=== PATIENT | female | born 1940 | race Caucasian/White ===

== ENCOUNTER 2017-03-09 12:27 | Inpatient (IN) ==
[2017-03-09] MEDS ORDERED: 0.9 % Sodium Chloride 1,000 ML IVC ONE (12:31)
--- NOTE | 2017-03-09 12:37 | Emergency Department Note ---
Disposition Clinical Impression: Orthostatic hypotension, Acute kidney injury Head injury Qualifiers: Encounter type: initial encounter Qualified Code(s): S09.90XA - Unspecified injury of head, initial encounter Disposition: Admitted As Inpatient Condition: Fair Referrals: Chris Lazaro MD [Primary Care Provider] - Forms: ED Satisfaction Letter Time of Disposition: 15:21 Fall HPI - General Chief Complaint: ED Fall Stated Complaint: fall Time Seen by Provider: 03/09/17 12:28 Source: patient, EMS Mode of arrival: EMS Limitations: no limitations Nursing Notes Reviewed: Yes Vital Signs Reviewed: Yes - History of Present Illness HPI Narrative: 76-year-old was at the assisted living and apparently fell striking the back of her head complaining of severe neck pain and shoulder pain. Found to have a low blood pressures given 250 mL bolus with improvement. On arrival to the emergency department she does interact appropriately and answers questions however her blood pressure is low with a systolic of 70. Fluid bolus was started on arrival. Pt Subjective Complaint: fall Onset (ago): Just [employer] Fall From: out of bed Fall Witnessed: no Place Fall Occurred: [facility] Loss of Consciousness: unsure Prolonged Down Time?: no Symptoms Prior to Fall: none Context: tripped/slipped Location of injury: head, chest Location of injury - extremities: Bilateral: shoulder Severity: moderate, severe Quality: aching Associated symptoms (after fall): Reports: headache, neck pain - Related Data Home Medications Medication Instructions Recorded Confirmed Acetaminophen [Tylenol Arthritis] 650 mg PO Q8H PRN 03/09/17 03/09/17 Amitriptyline [Elavil] 25 mg PO HS 03/09/17 03/09/17 Celecoxib [Celebrex] 200 mg PO DAILY 03/09/17 03/09/17 Cholecalciferol (Vitamin D3) 5,000 unit PO DAILY 03/09/17 03/09/17 [Vitamin D3] Duloxetine HCl [Cymbalta] 60 mg PO HS 03/09/17 03/09/17 Gabapentin [Neurontin] 100 mg PO TID 03/09/17 03/09/17 Lisinopril [Zestril] 20 mg PO DAILY 03/09/17 03/09/17 Loperamide HCl [Anti-Diarrheal] 2 mg PO Q4H PRN 03/09/17 03/09/17 Mag Hydrox/Al Hydrox/Simeth 30 ml PO Q4H PRN 03/09/17 03/09/17 [Antacid Suspension] Metoprolol Succinate 25 mg PO DAILY 03/09/17 03/09/17 Mirtazapine 7.5 mg PO HS 03/09/17 03/09/17 Omeprazole [PriLOSEC] 20 mg PO DAILY 03/09/17 03/09/17 Venlafaxine HCl [Venlafaxine HCl 37.5 mg PO BID 03/09/17 03/09/17 ER] Vitamin B Complex [B Complex] 1 each PO DAILY 03/09/17 03/09/17 amLODIPine [Norvasc] 5 mg PO DAILY 03/09/17 03/09/17 traZODone [TraZODone] 75 mg PO HS 03/09/17 03/09/17 Allergies Allergy/AdvReac Type Severity Reaction Status Date / Time diltiazem [From Cardizem] Allergy Agitated Verified 03/09/17 12:28 morphine AdvReac Agitated Verified 04/18/15 11:05 pregabalin [From Lyrica] AdvReac Agitated Verified 04/18/15 11:05 All systems ED: reviewed and negative except as stated. Constitutional: Denies: fever, chills, weakness, weight change Eyes: Denies: eye pain, eye discharge, vision change ENT ED: Denies: ear pain, throat pain, dental pain, hearing loss, epistaxis, congestion, dysphagia Cardiovascular: Denies: chest pain, palpitations, dyspnea on exertion, edema, syncope Respiratory: Denies: cough, dyspnea, wheezes, hemoptysis, stridor Gastrointestinal: Denies: abdominal pain, nausea, vomiting, diarrhea, constipation, hematemesis, melena, hematochezia Genitourinary: Denies: dysuria, frequency, hematuria, discharge Musculoskeletal: Reports: neck pain, arthralgia. Denies: back pain, myalgia Integumentary: Denies: rash, abrasion, lesions Neurological: Reports: headache. Denies: weakness, numbness, paresthesias, confusion, abnormal gait, vertigo Psychiatric: Denies: anxiety, depression, suicidal thoughts, homicidal thoughts , auditory hallucinations, visual hallucinations Endocrine: Denies: fatigue Hematological/Lymphatic: Denies: easy bleeding, easy bruising Allergic/Immunologic: Denies: facial swelling, urticaria Fall PMH - Past Medical History Medical history: Reports: fibromyalgia, hypertension Reports: Recurrent Falls (Pt has had frequent falls for the last few years. ) Surgical history: Reports: hip replacement, other (shoulder replacement left) Psychiatric history: Reports: anxiety - Social History Smoking Status: Never smoker Alcohol use: Reports: none Drug use: Reports: none Physical Exam - General Limitations: no limitations General appearance: alert, in no apparent distress - Head Head exam: other (Steric tenderness) - Eye Eye exam: Present: normal appearance, PERRL, EOMI - ENT ENT exam: normal exam, normal oropharynx, mucous membranes moist - Neck Neck exam: Present: normal inspection, full ROM, trachea midline - Chest Chest inspection: Present: normal inspection, symmetric chest wall rise - Respiratory Respiratory exam: Present: normal lung sounds bilaterally - Cardiovascular Cardiovascular exam: Present: regular rate, normal rhythm, normal heart sounds - Abdominal Exam Abdominal exam: Present: soft, Non-Tender. Absent: tenderness, distention, guarding, rebound, rigidity - Expanded Upper Extremity Exam Shoulder exam: Present: tenderness (Bilaterally). Absent: dislocation - Expanded Lower Extremity Exam Neurovascular/Tendon exam: Absent: motor deficit, sensory deficit, tendon deficit Gait: not tested/not observed - Back Exam Back exam: Present: normal inspection, full ROM. Absent: tenderness - Neurological Exam Neurological exam: Present: alert. Absent: motor sensory deficit - Psychiatric Psychiatric exam: Present: normal affect, normal mood - Skin Skin exam: Present: warm, dry, intact, normal color Course - Reevaluation(s) Reevaluation #1: 76-year-old who has been falling more frequently recently fell today injuring her head and neck. A CT of the head and neck were negative. Patient was hypotensive of did receive a bolus of fluid had some improvement in blood pressure was noted to have significant kidney injury. Appears that the patient is significantly dehydrated. We'll hydrate. Current blood pressure is 100/49. Time: 15:19 - Consultations Consultation #1: Discussed with Dr. Marquez, admit. Time: 15:20 Vital Signs Temperature 98 F 03/09/17 12:37 Pulse Rate 110 03/09/17 12:37 Respiratory Rate 18 03/09/17 12:37 Blood Pressure 84/52 03/09/17 12:37 O2 Sat by Pulse Oximetry 98 03/09/17 12:37 Temperature 98 F 03/09/17 12:37 Pulse Rate 97 03/09/17 15:12 Respiratory Rate 18 03/09/17 15:12 Blood Pressure 104/42 03/09/17 15:12 O2 Sat by Pulse Oximetry 99 03/09/17 15:12 Oxygen Delivery Oxygen Delivery Room Air Fall - Lab Data Lab results reviewed: Yes I reviewed the patient's lab results. Result diagrams: 03/09/17 13:12 03/09/17 13:12 Lab Results 03/09/17 03/09/17 03/09/17 Range/Units 13:12 13:12 13:12 WBC 11.2 H (4.3-11.1) K/mcL RBC 4.87 (3.82-4.97) M/mcL Hgb 14.0 (11.5-15.4) g/dL Hct 43.5 (35.3-44.9) % MCV 89.3 (83.0-100.0) fL MCH 28.7 (28.0-33.3) pg MCHC 32.2 (31.6-35.5) g/dL RDW 14.5 (11.5-14.5) % Plt Count 174 (140-400) K/mcL MPV 9.8 (9.4-12.4) fL Immature Gran % 0.2 (0-4) % Seg Neutrophils % 82.0 % Lymphocytes % 11.5 % Monocytes % 5.7 % Eosinophils % 0.4 % Basophils % 0.2 % Neutrophils # 9.2 H (1.6-8.9) K/mcL Lymphocytes # 1.3 (0.6-4.6) K/mcL Monocytes # 0.6 (0.0-1.3) K/mcL Eosinophils # 0.0 (0.0-0.6) K/mcL Basophils # 0.0 (0.0-0.2) K/mcL PT 10.7 (9.4-12.1) Seconds INR 1.0 APTT 28.4 (26.0-36.0) Seconds Sodium 142 (136-145) mEq/L Potassium 4.6 (3.5-5.1) mEq/L Chloride 109 H (98-107) mEq/L Carbon Dioxide 22 L (23-29) mEq/L BUN 39 H (8-23) mg/dL Creatinine 3.92 H (0.60-1.20) mg/dL Est GFR ( Amer) 13 L (> 60) Est GFR (Non-Af Amer) 11 L (> 60) BUN/Creatinine Ratio 10 (6-26) Glucose 105 (70-105) mg/dL Calculated Osmolality 304 H (280-300) Lactic Acid (0.5-2.2) mmol/L Calcium 9.2 (8.6-10.3) mg/dL Troponin I (< 0.04) ng/mL 03/09/17 03/09/17 Range/Units 13:12 13:12 WBC (4.3-11.1) K/mcL RBC (3.82-4.97) M/mcL Hgb (11.5-15.4) g/dL Hct (35.3-44.9) % MCV (83.0-100.0) fL MCH (28.0-33.3) pg MCHC (31.6-35.5) g/dL RDW (11.5-14.5) % Plt Count (140-400) K/mcL MPV (9.4-12.4) fL Immature Gran % (0-4) % Seg Neutrophils % % Lymphocytes % % Monocytes % % Eosinophils % % Basophils % % Neutrophils # (1.6-8.9) K/mcL Lymphocytes # (0.6-4.6) K/mcL Monocytes # (0.0-1.3) K/mcL Eosinophils # (0.0-0.6) K/mcL Basophils # (0.0-0.2) K/mcL PT (9.4-12.1) Seconds INR APTT (26.0-36.0) Seconds Sodium (136-145) mEq/L Potassium (3.5-5.1) mEq/L Chloride (98-107) mEq/L Carbon Dioxide (23-29) mEq/L BUN (8-23) mg/dL Creatinine (0.60-1.20) mg/dL Est GFR ( Amer) (> 60) Est GFR (Non-Af Amer) (> 60) BUN/Creatinine Ratio (6-26) Glucose (70-105) mg/dL Calculated Osmolality (280-300) Lactic Acid 1.1 (0.5-2.2) mmol/L Calcium (8.6-10.3) mg/dL Troponin I < 0.03 (< 0.04) ng/mL - Radiology Data Radiology results reviewed: Yes I reviewed the patient's radiology results. Cervical Spine CT 03/09/17 12:29 IMPRESSION: 1. No evidence of acute fracture or acute malalignment in the cervical spine. 2. Severe multilevel cervical spondylosis, similar to the previous study dated 04/18/2015. D/ / Naty Chaudhary / Naty Chaudhary Interpreting Provider: Naty Chaudhary Chest X-Ray 03/09/17 12:29 IMPRESSION: Low lung volumes. Discoid atelectasis at the left lung base. No acute cardiopulmonary disease. D/ / Cristi Loera MD / Cristi Loera MD Interpreting Provider: Cristi Loera MD Head CT 03/09/17 12:29 IMPRESSION: No acute intracranial abnormality. Chronic small vessel ischemic changes in the white matter. Cerebral atrophy. D/ / Uche Keene MD / Uche Keene MD Interpreting Provider: Uche Keene MD Shoulder X-Ray 03/09/17 12:37 IMPRESSION: No acute bony abnormality is appreciated in either shoulder, see above discussion. Postsurgical and degenerative changes are noted. D/ / Jonathon Patino MD / Jonathon Patino MD Interpreting Provider: Jonathon Patino MD - EKG Data EKG attestation: Yes I reviewed and interpreted this EKG. EKG shows normal: sinus rhythm Rate: tachycardia Rhythm: NSR [place]/QRS: RBBB Interpretation: no acute changes
[2017-03-09 13:29] LABS: Basophils % 0.2 %; Eosinophils % 0.4 %; Hematocrit 43.5 % (35.3-44.9); Immature Granulocytes % 0.2 % (0-4); Lymphocytes # 1.3 K/mcL (0.6-4.6); Lymphocytes % 11.5 %; Mean Corpuscular HGB Conc 32.2 g/dL (31.6-35.5); Mean Corpuscular Hemoglobin 28.7 pg (28.0-33.3); Mean Corpuscular Volume 89.3 fL (83.0-100.0); Mean Platelet Volume 9.8 fL (9.4-12.4); Monocytes # 0.6 K/mcL (0.0-1.3); Monocytes % 5.7 %; Neutrophils # 9.2 K/mcL (1.6-8.9); Platelet Count 174 K/mcL (140-400); Red Blood Count 4.87 M/mcL (3.82-4.97); Red Cell Distribution Width 14.5 % (11.5-14.5)
[2017-03-09 13:34] LABS: Prothrombin Time 10.7 Seconds (9.4-12.1)
[2017-03-09 13:37] LABS: Activated Partial Thrombo Time 28.4 Seconds (26.0-36.0)
[2017-03-09 13:42] LABS: Calcium 9.2 mg/dL (8.6-10.3); Potassium 4.6 mEq/L (3.5-5.1)
[2017-03-09] MEDS ORDERED: cefTRIAXone 1,000 MG in Water for inj. (sterile) 20 ML 10 ML IVP ONE (17:51)
[2017-03-09] MEDS ORDERED: Azithromycin 500 MG in D5% in Water 250 ML IVPB ONE (17:51)
[2017-03-09] MEDS: 0.9 % Sodium Chloride 1,000 ML IVC SCH ×2 (18:10→21:36)
[2017-03-09] MEDS ORDERED: Ondansetron 4 MG/2 ML VIAL IVP PRN (18:14)
[2017-03-09] MEDS ORDERED: Albuterol 2.5 MG/3 ML NEBULIZER IH PRN (18:14)
[2017-03-09] MEDS ORDERED: Naloxone 0.4 MG/ML INJ IVP PRN (18:14)
[2017-03-09] MEDS ORDERED: *HR* Heparin 5,000 UNIT/ML VIAL SQ SCH (18:15)
[2017-03-09] MEDS ORDERED: MOM Conc 10 ML UD.LIQ PO PRN (18:17)
--- NOTE | 2017-03-09 18:23 | Internal Med History&Physical ---
Date of Encounter: 03/09/17 Time of Encounter: 18:05 Assessment and Plan (1) Acute kidney injury Current visit: Yes Status: Acute 1. Likely due to dehydration and BP meds. Patient may have difficulty with and /or taking too much of her medications. 2. Hold all BP meds. 3. IVF hydration. 4. Monitor I/O and UOP. 5. Monitor renal function. 6. Will order renal ultrasound to evaluate for obstruction, but by history, I do not suspect it. 7. Consult nephrology if renal function fails to improve. (2) Pneumonia Current visit: Yes Status: Suspected 1. CXR and labs do not suggest it, but history and exam concerning for subacute pneumonia. 2. Will culture blood and start IV antibiotics. 3. Will order Influenza testing. 4. Supportive measures as necessary. Qualifiers: Pneumonia type: due to unspecified organism Laterality: right Lung location: lower lobe of lung Qualified Code(s): J18.1 - Lobar pneumonia, unspecified organism (3) Dehydration Current visit: Yes Status: Acute 1. IVF and oral hydration. 2. Hold BP meds. 3. Monitor I/O. (4) DVT prophylaxis Current visit: Yes Status: Acute 1. Heparin SQ. Internal Medicine - H&P: HPI Chief complaint: S/P fall; weakness Admitted From: Emergency Dept Plans for Post Hospital Care: Home History of present illness: Ms. Tolliver is a 76 year old female who lives independently in her apartment at an assisted livings facility. She had fallen earlier today and was unable to get off the ground without significant assistance. She waited several hours for her friends to arrive. She was brought to the ER where she was noted to be hypotensive and tachycardic. She was quite volume depleted and clinically dehydrated. She responded nicely to IV fluids and was admitted to the hospitalist service. Workup in the ER was negative including head CT, neck CT, chest x-ray, and shoulder x-ray. Medication list at that time was unknown and it was felt that she was likely suffering from side effects of her antihypertensive and possible diuretic therapy. Upon my assessment of the patient, she is alert, responsive, and appropriate. She looks dehydrated despite receiving 2 L of IV fluids per ER. She denies any fevers, chills, night sweats, vomiting, or diarrhea. She has had a chronic cough for over a month and it is worsening. She states she has had productive purulent sputum. She has had multiple ill contacts at her facility where they dine in a communal dining room. She cannot recall her medications, but her med list has been updated and verified. She is on multiple antihypertensive and antidepressant medications. I suspect her hemodynamic instability and acute renal failure are secondary to her blood pressure medications and side effects. Clinically, on exam, I suspect she might have a right lower lobe pneumonia despite a negative chest x-ray. She does not appear septic, and her lactic acid levels are normal. I asked the ER staff to obtain blood cultures and start empiric IV antibiotics. I will maintain her on IV fluids and hold her home medications for now. Past Med Surg Social Fam HX - Past Medical History Attestation: Yes The following information was validated with the patient. Source: patient, old records reviewed Medical history: fibromyalgia, hypertension Psychiatric history: anxiety - Past Surgical History Surgical History: hip replacement, other (shoulder replacement left) - Social History Smoking Status: Never smoker Smokeless Tobacco Status: No Alcohol use: none Drug use: none Current living situation: Assisted Living Activity Level: Uses cane/walker Recent Out of Country Travel Within the Last 8 Weeks: No - Family History Mother History Unknown: Yes Living Status: Father History Unknown: Yes Living Status: Internal Medicine - H&P: Meds Acetaminophen [Tylenol Arthritis] 650 mg PO Q8H PRN 03/09/17 [History] Amitriptyline [Elavil] 25 mg PO HS 03/09/17 [History] Celecoxib [Celebrex] 200 mg PO DAILY 03/09/17 [History] Cholecalciferol (Vitamin D3) [Vitamin D3] 5,000 unit PO DAILY 03/09/17 [History] Duloxetine HCl [Cymbalta] 60 mg PO HS 03/09/17 [History] Gabapentin [Neurontin] 100 mg PO TID 03/09/17 [History] Lisinopril [Zestril] 20 mg PO DAILY 03/09/17 [History] Loperamide HCl [Anti-Diarrheal] 2 mg PO Q4H PRN 03/09/17 [History] Mag Hydrox/Al Hydrox/Simeth [Antacid Suspension] 30 ml PO Q4H PRN 03/09/17 [ History] Metoprolol Succinate 25 mg PO DAILY 03/09/17 [History] Mirtazapine 7.5 mg PO HS 03/09/17 [History] Omeprazole [PriLOSEC] 20 mg PO DAILY 03/09/17 [History] Venlafaxine HCl [Venlafaxine HCl ER] 37.5 mg PO BID 03/09/17 [History] Vitamin B Complex [B Complex] 1 each PO DAILY 03/09/17 [History] amLODIPine [Norvasc] 5 mg PO DAILY 03/09/17 [History] traZODone [TraZODone] 75 mg PO HS 03/09/17 [History] 3 Allergy/AdvReac Type Severity Reaction Status Date / Time diltiazem [From Cardizem] Allergy Agitated Verified 03/09/17 12:28 morphine AdvReac Agitated Verified 04/18/15 11:05 pregabalin [From Lyrica] AdvReac Agitated Verified 04/18/15 11:05 - Constitutional Constitutional: no chills, no fever(s), no night sweats - EENT Eyes: no blurry vision, no change in vision Ears: no ear pain, no tinnitus Nose, mouth and throat: no nasal congestion, no sinus pain, no sinus pressure - Cardiovascular Cardiovascular ROS IM: dyspnea, dyspnea on exertion, no chest pain, no lightheadedness, no palpitations, no syncope - Respiratory Respiratory: cough, dyspnea, chest congestion, excessive phlegm production, change in phlegm color, no hemoptysis - Gastrointestinal Gastrointestinal: no abdominal pain, no diarrhea, no hematemesis, no hematochezia, no melena, no nausea, no vomiting - Genitourinary Genitourinary: no dysuria, no flank pain, no hematuria - Musculoskeletal Musculoskeletal ROS IM: muscle weakness, no arthralgias, no back pain, no numbness - Integumentary Integumentary IM: no rash, no jaundice - Neurological Neurological ROS: weakness, no dizziness, no focal weakness, no frequent falls, no headache(s) - Psychiatric Psychiatric: anxiety, no depression - Endocrine Endocrine IM: fatigue, no polydipsia, no polyuria - Allergic/Immunologic Allergic/Immunologic: no wheezing, no GI upset with certain foods - Constitutional Vitals: Temp Pulse Resp BP Pulse Ox 98 F 110 18 107/59 98 03/09/17 12:37 03/09/17 18:16 03/09/17 18:16 03/09/17 18:16 03/09/17 18:16 General appearance: Present: cooperative, A&O X 3, pleasant, no acute distress, answers questions appropriately Exam: looks dehydrated but in no acute distress - Head Head exam: Present: atraumatic, normal inspection - Expanded Head Exam Head exam expanded: Absent: abrasion, contusion, general tenderness - Eye Eye exam: Present: EOMI, normal appearance, PERRL. Absent: scleral icterus Pupils: Present: normal accommodation - ENT ENT exam: Present: mucous membranes dry, normal exam, normal oropharynx - Neck Neck exam general surgery: Present: full ROM, supple. Absent: lymphadenopathy, tenderness, nuchal rigidity - Respiratory Respiratory exam: Present: rales (right base), rhonchi. Absent: accessory muscle use, chest wall tenderness, respiratory distress, wheezes - Cardiovascular Cardiovascular exam: Present: RRR, +S1, +S2. Absent: diastolic murmur, systolic murmur Additional comments: HR in the 90's now - GI/Abdominal GI/Abdominal exam: Present: normal bowel sounds, soft. Absent: guarding, hepatomegaly, mass, rebound, splenomegaly, tenderness - Extremities Exam Extremities exam: Present: warm, radial pulses palpable and symmetrical. Absent : calf tenderness, joint swelling, tenderness - Back Exam Back exam: Present: normal inspection. Absent: CVA tenderness (L), CVA tenderness (R) - Neurological Exam Neurological exam: Present: alert, CN II-XII intact, oriented X3, no focal deficits, strengths equal and symetr throughout - Psychiatric Psychiatric exam: Present: normal affect, normal mood - Skin Skin exam: Present: dry, warm. Absent: rash Internal Med - H&P Results - Labs CBC & Chem 7: 03/09/17 13:12 03/09/17 13:12 - Diagnostic Studies Chest x-ray Status: image reviewed by me (negative)
[2017-03-09] MEDS: Gabapentin 100 MG CAPSULE PO SCH (21:33)
[2017-03-09 22:18] LABS: 2009 H1N1 PCR NOT DETECTED (Not Detect); Influenza A PCR Negative (Negative); Influenza B PCR Negative (Negative)
[2017-03-10] MEDS ORDERED: *HR* Metoprolol 5 MG/5 ML VIAL IVP ONE (00:33)
[2017-03-10] MEDS ORDERED: *HR* Heparin 5,000 UNIT/ML VIAL IVP PRN ×2 (00:41)
[2017-03-10] MEDS ORDERED: *HR* Heparin 5,000 UNIT/ML VIAL IVP ONE (00:41)
[2017-03-10] MEDS ORDERED: Heparin 25,000 UNIT/500 ML D5W 25,000 UNIT/500 ML BAG IVC SCH (00:45)
[2017-03-10 01:09] LABS: Hematocrit 35.7 % (35.3-44.9); Mean Corpuscular HGB Conc 31.1 g/dL (31.6-35.5); Mean Corpuscular Hemoglobin 28.6 pg (28.0-33.3); Mean Platelet Volume 9.7 fL (9.4-12.4); Platelet Count 156 K/mcL (140-400); Red Blood Count 3.88 M/mcL (3.82-4.97); Red Cell Distribution Width 14.4 % (11.5-14.5)
[2017-03-10 01:10] LABS: Eosinophils # 0.1 K/mcL (0.0-0.6); Hematocrit 35.8 % (35.3-44.9); Hemoglobin 11.2 g/dL (11.5-15.4); Immature Granulocytes % 0.6 % (0-4); Lymphocytes # 1.2 K/mcL (0.6-4.6); Lymphocytes % 14.5 %; Mean Corpuscular HGB Conc 31.3 g/dL (31.6-35.5); Mean Corpuscular Hemoglobin 28.6 pg (28.0-33.3); Mean Corpuscular Volume 91.6 fL (83.0-100.0); Monocytes # 0.5 K/mcL (0.0-1.3); Monocytes % 6.1 %; Neutrophils # 6.5 K/mcL (1.6-8.9); Platelet Count 155 K/mcL (140-400); Red Blood Count 3.91 M/mcL (3.82-4.97); Red Cell Distribution Width 14.4 % (11.5-14.5); Segmented Neutrophils % 77.8 %
[2017-03-10 01:16] LABS: INR 1.1; Prothrombin Time 11.4 Seconds (9.4-12.1)
[2017-03-10 01:18] LABS: Activated Partial Thrombo Time 35.1 Seconds (26.0-36.0)
[2017-03-10 01:20] LABS: Hemoglobin 11.1 g/dL (11.5-15.4)
[2017-03-10 01:31] LABS: Albumin 3.5 g/dL (3.5-5.7); Albumin/Globulin Ratio 1.5 (1.1-2.2); Bilirubin,Total 0.3 mg/dL (0.3-1.0); Calcium 8.1 mg/dL (8.6-10.3); Globulin 2.4 g/dL (2.4-3.5); Magnesium 1.8 mg/dL (1.6-2.6); Potassium 4.1 mEq/L (3.5-5.1); Total Protein 5.9 g/dL (6.4-8.9)
--- NOTE | 2017-03-10 01:37 | Event Note ---
Date of Encounter: 03/09/17 Time of Encounter: 23:30 Pt developped A Fib RVR with HR 160-170. Pt is allergic to cardizem. Pt has no Hx of A Fib documented in chart and not on any AC. Pt's HR convert to sinus after metoprolol 5mg iv once. Will start heparin drip. Check mg, TSH and Echo, and consult cardio in AM for new onset A Fib.
[2017-03-10] MEDS: 0.9 % Sodium Chloride 1,000 ML IVC SCH ×2 (04:39→14:58)
[2017-03-10 07:56] LABS: Activated Partial Thrombo Time 207.2 Seconds (26.0-36.0)
[2017-03-10 07:58] LABS: Magnesium 1.9 mg/dL (1.6-2.6)
[2017-03-10] MEDS ORDERED: Azithromycin 250 MG in D5% in Water 250 ML IVPB SCH (08:00)
[2017-03-10 08:12] LABS: Thyroid Stimulating Hormone 0.603 mcIU/mL (0.340-5.600)
[2017-03-10 08:20] LABS: Heparin anti-factor XA UFH 0.75 IU/mL (0.30-0.70)
[2017-03-10] MEDS: Gabapentin 100 MG CAPSULE PO SCH ×3 (09:11→22:27)
--- NOTE | 2017-03-10 09:42 | Internal Med Progress Note ---
<Carter Bernal - Last Filed: 03/10/17 13:03> Date of Encounter: 03/10/17 Time of Encounter: 09:40 - Assessment and plan (1) Acute kidney injury Current Visit: Yes Status: Acute Assessment and plan: This most likely is due to dehydration and on blood pressure medications. Patient is having difficulty taking off her medications she says she takes one sometimes gets confused. We will hold all blood pressure medications. We will give IV fluid hydration. Monitor I/O and urine output. Creatinine is better today at 2.35 that from 3.92 yesterday. Renal ultrasound was ordered which showed cortical thinning otherwise normal ultrasound. At this time will not consult nephrology as renal function has been improving with IV fluids. We will continue to monitor and given IV fluids. We will continue IV fluids and by mouth hydration and watch over her. We will repeat labs in the morning to be sure her creatinine is normalizing. Plan on discharge tomorrow pending PT/OT recommendations. (2) Dehydration Current Visit: Yes Status: Acute Assessment and plan: Patient states she had not been drinking much water and has been on the go most of this week. She also has had this cough with sputum production. likely could be secondary to dehydration by poor fluid intake, blood pressure medications, pneumonia. We will continue IV fluids and oral hydration. hold blood pressure medications, monitor ins and outs (3) Pneumonia Current Visit: Yes Status: Suspected Assessment and plan: Patient had chest x-ray done in the emergency department that did not suggest pneumonia. But on history and exam with the cough and sputum production as well as rhonchi being heard in the left lower lobe patient is going to be treated for community acquired pneumonia. Influenza swabs are negative. Blood cultures are still pending. Day 2 of azithromycin and ceftriaxone via IV was given today. We will change coordinator to by mouth azithromycin tomorrow. Plan is for discharge tomorrow after PT and OT consults. Qualifiers: Pneumonia type: due to unspecified organism Laterality: right Lung location: lower lobe of lung Qualified Code(s): J18.1 - Lobar pneumonia, unspecified organism (4) Tachycardia Current Visit: Yes Status: Acute Assessment and plan: Overnight patient had a run of tachycardia when evaluated by the night team diagnoses as atrial fibrillation with RVR at this time to give the patient 5 mg IV metoprolol. Patient then had slow her heart rate and was no longer in atrial fibrillation. Patient states she has no history of atrial fibrillation does not take any anticoagulation. She is also started on heparin after this event. And cardiology was consulted. After I reviewed the EKG done during this time. I felt this most likely is just the tachycardia and not atrial fibrillation with RVR as it was a regular rhythm and there were noticeable P waves. There were no other acute changes based on EKG. This most likely was due to patient's medications being held most likely her beta ebony causing the tachycardia. After looking at the EKG we canceled cardiology's consult and explain this to them as this was likely was tachycardia without atrial fibrillation. Stop the heparin and changed to DVT prophylaxis heparin. Will put patient back on her daily beta ebony for rate control. We will continue to monitor (5) DVT prophylaxis Current Visit: Yes Status: Acute Assessment and plan: Heparin subcutaneous twice a day 5000 units - Subjective Interval history: Patient states she still very weak. Said she scared to stand up and she is scheduled in a fall. Patient states she has never really had this problem before. She feels that she is very healthy woman is never had any issues. She is not complaining of any chest pain or shortness of breath. She does have a cough and has had some sputum production. Has been no fevers or chills. No dysuria, abdominal pain or bowel movement changes. Patient otherwise has no complaints. Overnight patient did have a run of tachycardia they treat his atrial fibrillation with RVR and gave her 5 mg of metoprolol IV which occurs her heart rate down. Patient states when this occurred tonight feeling heart palpitations, weakness, chest pain or any other symptoms during this event. Otherwise there were no overnight event - Constitutional Vitals: Temp Pulse Resp BP Pulse Ox 99.1 F 107 18 101/53 94 03/10/17 05:53 03/10/17 05:53 03/10/17 05:53 03/10/17 05:53 03/10/17 05:53 General appearance: Present: cooperative, A&O X 3, pleasant, no acute distress, answers questions appropriately - Head Head exam: Present: atraumatic, normocephalic - Eye Eye exam: Present: PERRL, conjuntiva pink, sclera anicteric Pupils: Present: PERRL - Neck Neck exam general surgery: Present: supple, trachea midline. Absent: lymphadenopathy - Respiratory Respiratory exam: Present: decreased breath sounds, rhonchi (Mild rhonchi heard in the right lower lobe.). Absent: accessory muscle use, rales, wheezes - Cardiovascular Cardiovascular exam: Present: RRR, +S1, +S2. Absent: diastolic murmur, gallop, rubs, systolic murmur - GI/Abdominal GI/Abdominal exam: Present: normal bowel sounds, soft, no peritoneal signs. Absent: distended, tenderness - Extremities Exam Extremities exam: Present: warm, radial pulses palpable and symmetrical. Absent : calf tenderness, cyanotic, pedal edema - Neurological Exam Neurological exam: Present: CN II-XII intact, oriented X3, no focal deficits. Absent: pronater drift, facial droop, speech deficit - Skin Skin exam: Present: dry, intact Internal Medicine: Result - Labs CBC & Chem 7: 03/10/17 00:58 03/10/17 00:58 Labs: Short CBC 03/10/17 03/10/17 Range/Units 00:58 00:58 WBC 8.3 8.4 (4.3-11.1) K/mcL Hgb 11.2 L D 11.1 L (11.5-15.4) g/dL Hct 35.8 35.7 (35.3-44.9) % Plt Count 155 156 (140-400) K/mcL Neutrophils # 6.5 (1.6-8.9) K/mcL BMP 03/10/17 00:58 Sodium 140 Potassium 4.1 Chloride 113 H Carbon Dioxide 21 L BUN 32 H Creatinine 2.35 H Glucose 83 Calcium 8.1 L Liver Function 03/10/17 Range/Units 00:58 Total Bilirubin 0.3 (0.3-1.0) mg/dL AST 14 (13-39) Units/L ALT 9 (7-52) Units/L Alkaline Phosphatase 45 (34-104) Units/L Albumin 3.5 (3.5-5.7) g/dL - ABG Interpretation ABG results: PT/INR, D-dimer PT 11.4 Seconds (9.4-12.1) 03/10/17 00:58 - EKG Interpretation EKG Interpreted by Myself: Yes EKG shows normal: sinus rhythm, QRS complexes, ST-T waves - Prior EKG Data Prior EKG available for review: yes When compared to previous EKG: there is no significant change EKG comments: 03/10/17 09:43 When evaluating the EKG from last night during the atrial ablation with RVR. I evaluated the EKG patient did haveP waves. It was a regular rhythm. This was likely was seen and his tachycardia not atrial fibrillation with RVR. There were no acute ST changes, no acute T-wave abnormalities, no signs of WPW/ Brugada syndrome. There was a incomplete right bundle branch block which is old based on previous EKGs that we compared with. - Impressions Impressions Retroperitoneum Ultrasound 03/09/17 21:00 IMPRESSION: 1. Cortical thinning in the bilateral kidneys may represent changes of chronic medical renal disease. 2. Small postvoid residual in the bladder. D/ / Cristian Lundy MD / Cristian Lundy MD Interpreting Provider: Cristian Lundy MD Consult Discharge Plan - Plan Referrals: Chris Lazaro MD [Primary Care Provider] - <Evette Morales G - Last Filed: 03/10/17 15:21> Date of Encounter: 03/10/17 - Constitutional Vitals: Temp Pulse Resp BP Pulse Ox 98.6 F 99 18 137/76 94 03/10/17 15:05 03/10/17 15:05 03/10/17 15:05 03/10/17 15:05 03/10/17 15:05 Internal Medicine: Result - Labs CBC & Chem 7: 03/10/17 00:58 03/10/17 00:58 Labs: Short CBC 03/10/17 03/10/17 Range/Units 00:58 00:58 WBC 8.3 8.4 (4.3-11.1) K/mcL Hgb 11.2 L D 11.1 L (11.5-15.4) g/dL Hct 35.8 35.7 (35.3-44.9) % Plt Count 155 156 (140-400) K/mcL Neutrophils # 6.5 (1.6-8.9) K/mcL BMP 03/10/17 00:58 Sodium 140 Potassium 4.1 Chloride 113 H Carbon Dioxide 21 L BUN 32 H Creatinine 2.35 H Glucose 83 Calcium 8.1 L Liver Function 03/10/17 Range/Units 00:58 Total Bilirubin 0.3 (0.3-1.0) mg/dL AST 14 (13-39) Units/L ALT 9 (7-52) Units/L Alkaline Phosphatase 45 (34-104) Units/L Albumin 3.5 (3.5-5.7) g/dL - ABG Interpretation ABG results: PT/INR, D-dimer PT 11.4 Seconds (9.4-12.1) 03/10/17 00:58 - Impressions Impressions Retroperitoneum Ultrasound 03/09/17 21:00 IMPRESSION: 1. Cortical thinning in the bilateral kidneys may represent changes of chronic medical renal disease. 2. Small postvoid residual in the bladder. D/ / Cristian Lundy MD / Cristian Lundy MD Interpreting Provider: Cristian Lundy MD Echocardiogram 03/10/17 01:37 Impressions: LVEF 70%. Normal LV chamber size, wall thickness and function. Mild left ventricular diastolic dysfunction. Normal right ventricular structure and function. No evidence of pulmonary hypertension. No significant valvular dysfunction. Left Ventricular Wall Motion: Rest Echo Findings All wall segments showed normal motion. Findings: Study Quality * Technically adequate exam. ECG Findings * Sinus tachycardia. Left Ventricle * LVEF 70%. * Normal LV chamber size and function. * Mild asymmetric hypertrophy of the basal septum. * Mild left ventricular diastolic dysfunction. Right Ventricle * Normal right ventricular structure and function. Left Atrium * Normal left atrial size. Right Atrium * Normal right atrial size. Interatrial Septum * Interatrial septum not well evaluated. Aortic Valve * Aortic valve not well visualized. * Mildly sclerotic aortic valve leaflets. * No aortic regurgitation. * No aortic stenosis. Mitral Valve * Normal mitral valve structure and function. * No mitral stenosis. * Trace mitral regurgitation. Tricuspid Valve * Normal tricuspid valve structure and function. * Trace tricuspid regurgitation. * No evidence of pulmonary hypertension. Pulmonic Valve * Normal pulmonic valve structure and function. * Trace pulmonic regurgitation. Aorta * Normally sized aortic root. Pericardium * The pericardium appears normal. IVC * Normal IVC dimensions and inspiratory collapse. Pulmonary Artery * Normal visualized portions of the main pulmonary artery. - Attending Attestation I saw and evaluated the patient at bedside. I have reviewed the progress note obtained and documented by the resident and personally participated in the villar components. I have discussed the case and management of the patient's care. I agree with the findings and plan of care.The following comments revise or confirm relevant villar components of their note. Acute and chronic renal failure most likely in the setting of community acquired pneumonia and dehydration clinical community acquired pneumonia. Deconditioning clinically improving gradually. Will need physical therapy and occupational therapy evaluation for safe disposition
[2017-03-10] MEDS: Metoprolol XL (24 HR) Succ 25 MG TAB.ER.24H PO SCH (11:40)
--- NOTE | 2017-03-10 12:06 | Electrocardiograph Report ---
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
[2017-03-10] MEDS: *HR* Heparin 5,000 UNIT/ML VIAL SQ SCH (17:30)
[2017-03-10] MEDS ORDERED: cefTRIAXone 1,000 MG in Water for inj. (sterile) 20 ML 10 ML IVP SCH (18:00)
--- NOTE | 2017-03-10 19:35 | Electrocardiograph Report ---
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
--- NOTE | 2017-03-10 19:36 | Electrocardiograph Report ---
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
--- NOTE | 2017-03-10 19:37 | Electrocardiograph Report ---
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
[2017-03-10] MEDS ORDERED: Acetaminophen 325 MG TABLET PO ONE (23:45)
[2017-03-11] MEDS: 0.9 % Sodium Chloride 1,000 ML IVC SCH ×2 (00:37→08:41)
[2017-03-11 05:22] LABS: Calcium 8.7 mg/dL (8.6-10.3); Potassium 4.7 mEq/L (3.5-5.1)
[2017-03-11] MEDS: *HR* Heparin 5,000 UNIT/ML VIAL SQ SCH ×2 (06:00→18:13)
[2017-03-11] MEDS: Azithromycin 250 MG TABLET PO SCH (08:31)
[2017-03-11] MEDS: Gabapentin 100 MG CAPSULE PO SCH ×3 (08:31→23:11)
[2017-03-11] MEDS: Metoprolol XL (24 HR) Succ 25 MG TAB.ER.24H PO SCH (08:31)
--- NOTE | 2017-03-11 09:42 | Internal Med Progress Note ---
<Uche Martinez - Last Filed: 03/11/17 12:18> Date of Encounter: 03/11/17 Time of Encounter: 09:15 - Assessment and plan (1) Acute kidney injury Current Visit: Yes Status: Acute Assessment and plan: Patient acute kidney injury likely secondary to dehydration and confused use of her blood pressure medication Her blood pressure medications with the exception of her beta ebony have been held She is given IV fluid hydration for the first 48 hours while she was here with improvement in her renal function seen Renal ultrasound showed cortical thinning, but no significant findings otherwise We will hold additional IV fluids and encourage by mouth intake We will continue to monitor daily labs Consider discharge tomorrow following repeat chest x-ray and PT OT eval (2) Dehydration Current Visit: Yes Status: Acute Assessment and plan: Patient states she had not been drinking much water and has been on the go most of this week. Patient had AK I presentation, now resolved She also has had this cough with sputum production. Her overall weakness likely could be secondary to dehydration by poor fluid intake, blood pressure medications, pneumonia. As patient renal function, will stop additional fluids and encourage increased by mouth intake Continue to monitor I's and O's (3) Pneumonia Current Visit: Yes Status: Suspected Assessment and plan: Patient had chest x-ray done in the emergency department that did not suggest pneumonia. But on history and exam with the cough and sputum production as well as rales being heard in the left lower lobe patient is going to be treated for community acquired pneumonia. Influenza swabs are negative. Blood cultures are still pending. Day 3 of azithromycin and ceftriaxone via IV was given today Plan is for discharge tomorrow after PT and OT consults We will obtain follow-up chest x-ray as patient is now been rehydrated Qualifiers: Pneumonia type: due to unspecified organism Laterality: right Lung location: lower lobe of lung Qualified Code(s): J18.1 - Lobar pneumonia, unspecified organism (4) Tachycardia Current Visit: Yes Status: Acute Assessment and plan: Patient had a run of tachycardia when evaluated by the night team that was diagnosed as atrial fibrillation with RVR at this time to give the patient 5 mg IV metoprolol.Patient states she has no history of atrial fibrillation does not take any anticoagulation. She is also started on heparin and cardiology was consulted after this event. Upon review of the patient's EKG the following day, she appeared not to suffer from atrial fibrillation with RVR and had actually had sinus tachycardia. Tachycardia was likely results of her antihypertensive medications, including her beta ebony, being held. The heparin was stopped yesterday Patient's beta ebony was reintroduced We will continue to monitor (5) DVT prophylaxis Current Visit: Yes Status: Acute - Subjective Interval history: Patient reports having some occasional chills, continuation of her weakness, and dry cough. Her dehydration is overall improved with improvement of renal function seen. Patient has still not been evaluated PT and OT - Constitutional Vitals: Temp Pulse Resp BP Pulse Ox 98.4 F 78 16 138/76 95 03/11/17 07:00 03/11/17 07:00 03/11/17 07:00 03/11/17 07:00 03/11/17 07:00 General appearance: Present: cooperative, A&O X 3, pleasant, no acute distress, answers questions appropriately Exam: General: Cooperative, pleasant, no acute distress, alert and oriented 3, answers questions appropriately HEENT: Normocephalic, atraumatic, Conjunctiva pink, sclera anicteric, oral mucosa moist Respiratory: No accessory muscle usage, clear to auscultation bilaterally, no wheezes/rhonchi/rales appreciated Cardiovascular: Regular rate and rhythm, S1 and S2 present, no murmurs/rubs/ gallops/clicks appreciated GI/abdominal: Nondistended, nontender, soft, normal bowel sounds, no peritoneal signs Extremities: No calf tenderness, mild pedal edema appreciated, warm, lower extremity pulses palpable and symmetrical Neurological: Alert and oriented 3, no facial droop, no focal deficits Skin: Dry, intact, normal color Internal Medicine: Result - Labs CBC & Chem 7: 03/10/17 00:58 03/11/17 04:21 Labs: BMP 03/11/17 04:21 Sodium 142 Potassium 4.7 Chloride 121 H Carbon Dioxide 17 L BUN 17 Creatinine 1.14 Glucose 86 Calcium 8.7 - ABG Interpretation ABG results: PT/INR, D-dimer PT 11.4 Seconds (9.4-12.1) 03/10/17 00:58 - Impressions Impressions Echocardiogram 03/10/17 01:37 Impressions: LVEF 70%. Normal LV chamber size, wall thickness and function. Mild left ventricular diastolic dysfunction. Normal right ventricular structure and function. No evidence of pulmonary hypertension. No significant valvular dysfunction. Left Ventricular Wall Motion: Rest Echo Findings All wall segments showed normal motion. Findings: Study Quality * Technically adequate exam. ECG Findings * Sinus tachycardia. Left Ventricle * LVEF 70%. * Normal LV chamber size and function. * Mild asymmetric hypertrophy of the basal septum. * Mild left ventricular diastolic dysfunction. Right Ventricle * Normal right ventricular structure and function. Left Atrium * Normal left atrial size. Right Atrium * Normal right atrial size. Interatrial Septum * Interatrial septum not well evaluated. Aortic Valve * Aortic valve not well visualized. * Mildly sclerotic aortic valve leaflets. * No aortic regurgitation. * No aortic stenosis. Mitral Valve * Normal mitral valve structure and function. * No mitral stenosis. * Trace mitral regurgitation. Tricuspid Valve * Normal tricuspid valve structure and function. * Trace tricuspid regurgitation. * No evidence of pulmonary hypertension. Pulmonic Valve * Normal pulmonic valve structure and function. * Trace pulmonic regurgitation. Aorta * Normally sized aortic root. Pericardium * The pericardium appears normal. IVC * Normal IVC dimensions and inspiratory collapse. Pulmonary Artery * Normal visualized portions of the main pulmonary artery. Consult Discharge Plan - Plan Referrals: Chris Lazaro MD [Primary Care Provider] - <Nilton Foster - Last Filed: 03/11/17 18:07> Date of Encounter: 03/11/17 - Constitutional Vitals: Temp Pulse Resp BP Pulse Ox 98.4 F 76 18 136/68 95 03/11/17 14:00 03/11/17 14:00 03/11/17 14:00 03/11/17 14:00 03/11/17 14:00 Internal Medicine: Result - Labs CBC & Chem 7: 03/10/17 00:58 03/11/17 04:21 Labs: BMP 03/11/17 04:21 Sodium 142 Potassium 4.7 Chloride 121 H Carbon Dioxide 17 L BUN 17 Creatinine 1.14 Glucose 86 Calcium 8.7 - ABG Interpretation ABG results: PT/INR, D-dimer PT 11.4 Seconds (9.4-12.1) 03/10/17 00:58 - Impressions Impressions Chest X-Ray 03/11/17 09:29 IMPRESSION: Vertically-oriented interface projecting over right lateral lung base favored to represent a skin fold. Small pneumothorax is considered less likely. Left perihilar and basilar airspace disease increased from 11/07/2017. D/ / Haroldo Cleary MD / Haroldo Cleary MD Interpreting Provider: Haroldo Cleary MD - Attending Attestation I examined this patient and my medical decision-making was reviewed with the Resident Physician on 03/11/17. I agree with the documented findings, disposition and treatment plan as described except to the extent set forth below. Ms Tolliver is currently admitted for dehydration and ASHTYN and pneumonia. She remains moderate to high risk due to potential for worsening clinical status. Ms Tolliver is eating lunch. She denies new issues at this time. To be evaluated by PT and OT. Exam Alert. Comfortable Mucus membranes dry Heart reg No wheeze I/P 1. ASHTYN 2. PNA Further diagnoses and plan as above.
[2017-03-11] MEDS: cefTRIAXone 1,000 MG in Water for inj. (sterile) 10 ML IVP SCH (10:52)
[2017-03-11] MEDS: *HR* OxyCODONE Immed Rel 5 MG TABLET PO PRN ×2 (11:58→19:46)
[2017-03-11] MEDS: Acetaminophen 325 MG TABLET PO PRN (23:12)
[2017-03-12 05:19] LABS: Basophils % 0.4 %; Eosinophils # 0.1 K/mcL (0.0-0.6); Eosinophils % 2.9 %; Hematocrit 32.7 % (35.3-44.9); Hemoglobin 10.7 g/dL (11.5-15.4); Immature Granulocytes % 0.7 % (0-4); Lymphocytes # 1.3 K/mcL (0.6-4.6); Lymphocytes % 28.8 %; Mean Corpuscular HGB Conc 32.7 g/dL (31.6-35.5); Mean Corpuscular Hemoglobin 28.8 pg (28.0-33.3); Mean Corpuscular Volume 87.9 fL (83.0-100.0); Mean Platelet Volume 9.8 fL (9.4-12.4); Monocytes # 0.3 K/mcL (0.0-1.3); Monocytes % 6.7 %; Neutrophils # 2.7 K/mcL (1.6-8.9); Platelet Count 154 K/mcL (140-400); Red Blood Count 3.72 M/mcL (3.82-4.97); Red Cell Distribution Width 13.7 % (11.5-14.5); Segmented Neutrophils % 60.5 %
[2017-03-12 05:36] LABS: Calcium 8.7 mg/dL (8.6-10.3); Potassium 4.1 mEq/L (3.5-5.1)
[2017-03-12] MEDS: *HR* Heparin 5,000 UNIT/ML VIAL SQ SCH ×2 (06:31→16:52)
[2017-03-12] MEDS: cefTRIAXone 1,000 MG in Water for inj. (sterile) 10 ML IVP SCH (07:56)
[2017-03-12] MEDS: Azithromycin 250 MG TABLET PO SCH (07:57)
[2017-03-12] MEDS: Gabapentin 100 MG CAPSULE PO SCH ×3 (07:57→21:01)
[2017-03-12] MEDS: Metoprolol XL (24 HR) Succ 25 MG TAB.ER.24H PO SCH (07:57)
[2017-03-12] MEDS: Lisinopril 20 MG TABLET PO SCH (09:39)
[2017-03-12] MEDS: amLODIPine 5 MG TABLET PO SCH (09:39)
--- NOTE | 2017-03-12 09:48 | Physician Discharge Referral ---
Home Health/Hosp Referral Info Transfer to: Home Health Provider in Charge Post Discharge: PCP - Diagnosis (1) Acute kidney injury Priority: Primary Status: Acute (2) Dehydration Priority: Primary Status: Acute (3) Pneumonia Priority: Primary Status: Suspected (4) Tachycardia Priority: Secondary Status: Acute (5) DVT prophylaxis Priority: Secondary Status: Acute (6) Anemia Priority: Secondary Status: Acute - Respiratory Orders Smoking Cessation: Smoking cessation has been advised. For more information, call the [place] Tobacco Quit Line at 3-397-HHCF-NOW. - Diet/Nutrition Diet/Nutrition Orders: Cardiac - Activity Activity Orders: Walker - Services Needed Following services are medically necessary services: Physical Therapy, Occupational Therapy - Transfer Medications Home Medications: Acetaminophen [Tylenol Arthritis] 650 mg PO Q8H PRN 03/09/17 [History] Amitriptyline [Elavil] 25 mg PO HS 03/09/17 [History] Celecoxib [Celebrex] 200 mg PO DAILY 03/09/17 [History] Cholecalciferol (Vitamin D3) [Vitamin D3] 5,000 unit PO DAILY 03/09/17 [History] Duloxetine HCl [Cymbalta] 60 mg PO HS 03/09/17 [History] Gabapentin [Neurontin] 100 mg PO TID 03/09/17 [History] Lisinopril [Zestril] 20 mg PO DAILY 03/09/17 [History] Loperamide HCl [Anti-Diarrheal] 2 mg PO Q4H PRN 03/09/17 [History] Mag Hydrox/Al Hydrox/Simeth [Antacid Suspension] 30 ml PO Q4H PRN 03/09/17 [ History] Metoprolol Succinate 25 mg PO DAILY 03/09/17 [History] Mirtazapine 7.5 mg PO HS 03/09/17 [History] Omeprazole [PriLOSEC] 20 mg PO DAILY 03/09/17 [History] Venlafaxine HCl [Venlafaxine HCl ER] 37.5 mg PO BID 03/09/17 [History] Vitamin B Complex [B Complex] 1 each PO DAILY 03/09/17 [History] amLODIPine [Norvasc] 5 mg PO DAILY 03/09/17 [History] traZODone [TraZODone] 75 mg PO HS 03/09/17 [History] Allergies/Adverse Reactions: 3 Allergy/AdvReac Type Severity Reaction Status Date / Time diltiazem [From Cardizem] Allergy Agitated Verified 03/09/17 12:28 morphine AdvReac Agitated Verified 04/18/15 11:05 pregabalin [From Lyrica] AdvReac Agitated Verified 04/18/15 11:05 Certification: Further, I certify that my clinical findings support that this patient is homebound (i.e. absences from home require considerable and taxing effort and are for medical reasons or congregational services or infrequently or short duration when for other reasons) because: Homebound Reason: Patient requires assistance of a person or device to safely leave home, Leaving home requires considerable and taxing effort due to condition Attestation: My signature below is to certify that this patient is under my care and that I, or nurse practitioner, or a physician's orthopaedic physician assistant working with me, has a face-to -face encounter with this patient.
--- NOTE | 2017-03-12 09:48 | Discharge Summary ---
Date of Encounter: 03/12/17 Time of Encounter: 09:30 - Discharge Diagnosis (1) Acute kidney injury Status: Acute (2) Dehydration Status: Acute (3) Pneumonia Status: Suspected Qualifiers: Pneumonia type: due to unspecified organism Laterality: right Lung location: lower lobe of lung Qualified Code(s): J18.1 - Lobar pneumonia, unspecified organism (4) Tachycardia Status: Acute (5) DVT prophylaxis Status: Acute (6) Anemia Status: Acute - Discharge Medications Home Medications: Acetaminophen [Tylenol Arthritis] 650 mg PO Q8H PRN 03/09/17 [History] Amitriptyline [Elavil] 25 mg PO HS 03/09/17 [History] Celecoxib [Celebrex] 200 mg PO DAILY 03/09/17 [History] Cholecalciferol (Vitamin D3) [Vitamin D3] 5,000 unit PO DAILY 03/09/17 [History] Duloxetine HCl [Cymbalta] 60 mg PO HS 03/09/17 [History] Gabapentin [Neurontin] 100 mg PO TID 03/09/17 [History] Lisinopril [Zestril] 20 mg PO DAILY 03/09/17 [History] Loperamide HCl [Anti-Diarrheal] 2 mg PO Q4H PRN 03/09/17 [History] Mag Hydrox/Al Hydrox/Simeth [Antacid Suspension] 30 ml PO Q4H PRN 03/09/17 [ History] Metoprolol Succinate 25 mg PO DAILY 03/09/17 [History] Mirtazapine 7.5 mg PO HS 03/09/17 [History] Omeprazole [PriLOSEC] 20 mg PO DAILY 03/09/17 [History] Venlafaxine HCl [Venlafaxine HCl ER] 37.5 mg PO BID 03/09/17 [History] Vitamin B Complex [B Complex] 1 each PO DAILY 03/09/17 [History] amLODIPine [Norvasc] 5 mg PO DAILY 03/09/17 [History] traZODone [TraZODone] 75 mg PO HS 03/09/17 [History] Allergies/Adverse Reactions: 3 Allergy/AdvReac Type Severity Reaction Status Date / Time diltiazem [From Cardizem] Allergy Agitated Verified 03/09/17 12:28 morphine AdvReac Agitated Verified 04/18/15 11:05 pregabalin [From Lyrica] AdvReac Agitated Verified 04/18/15 11:05 Procedures/tests Complete & Pending: Procedures Performed prior 72 hours Category Date Time Status Retroperitoneal Ultrasound - Complete [US Exams 03/09/17 21:00 Completed retroperitoneal comp] [US] Routine ECG 12 lead ECG [ECG] Routine Y 03/09/17 20:47 Completed ECG 12 lead ECG [ECG] Routine Y 03/10/17 00:17 Completed ECG 12 lead ECG [ECG] Routine Y 03/10/17 11:06 Ordered EV echocardiogram Routine Y 03/10/17 01:37 Completed Date of admission: 03/09/17 18:14 Primary care physician: Chris Lazaro MD Consults: 03/10/17 11:50 Consult to Occupational Therapy [CONS] Routine Comment: Evaluate, develop and implement POC Reason for Consult: eval and treat Consult to Physical Therapy [CONS] Routine Comment: Evaluate, develop and implement POC Reason for Consult: Eval and treat 03/10/17 11:52 Consult to Fire Inspector [CONS] Routine Reason for SW Consult: Discharge planning - Patient Status Condition: Fair - Discharge Instructions Follow Up With: Chris Lazaro MD [Primary Care Provider] - Hospital course: Ms. Tolliver is a 76 year old female - Time Spent with Patient Total time spent providing and/or coordinating discharge services: - Constitutional Vitals: Temp Pulse Resp BP Pulse Ox 98.0 F 77 17 183/91 95 03/12/17 07:21 03/12/17 07:21 03/12/17 07:21 03/12/17 09:13 03/12/17 07:21 General appearance: Present: cooperative, A&O X 3, pleasant, no acute distress, answers questions appropriately
--- NOTE | 2017-03-12 12:25 | Internal Med Progress Note ---
<Uche Martinez - Last Filed: 03/12/17 12:22> Date of Encounter: 03/12/17 Time of Encounter: 09:15 - Assessment and plan (1) Acute kidney injury Current Visit: Yes Status: Resolved Assessment and plan: Patient acute kidney injury likely secondary to dehydration and confused use of her blood pressure medication With 2 days of normal renal function, will restart patient blood pressure medications She is given IV fluid hydration for the first 48 hours while she was here with improvement in her renal function seen Renal ultrasound showed cortical thinning, but no significant findings otherwise We will restart patient antihypertensive medications We will continue to monitor daily labs Consider discharge tomorrow following repeat chest x-ray and PT OT eval (2) Dehydration Current Visit: Yes Status: Resolved Assessment and plan: Patient states she had not been drinking much water and has been on the go most of this week. Patient had ASHTYN presentation, now resolved She also has had this cough with sputum production. Her overall weakness likely could be secondary to dehydration by poor fluid intake, blood pressure medications, pneumonia. As patient renal function, will stop additional fluids and encourage increased by mouth intake Continue to monitor I's and O's (3) Pneumonia Current Visit: Yes Status: Suspected Assessment and plan: Patient had chest x-ray done in the emergency department that did not suggest pneumonia. But on history and exam with the cough and sputum production as well as rales being heard in the left lower lobe patient is going to be treated for community acquired pneumonia. Influenza swabs are negative Day 4 of azithromycin and ceftriaxone via IV was given today Plan is for discharge tomorrow after PT and OT consults Qualifiers: Pneumonia type: due to unspecified organism Laterality: right Lung location: lower lobe of lung Qualified Code(s): J18.1 - Lobar pneumonia, unspecified organism (4) Tachycardia Current Visit: Yes Status: Acute Assessment and plan: Patient had a run of tachycardia when evaluated by the night team that was diagnosed as atrial fibrillation with RVR at this time to give the patient 5 mg IV metoprolol. Patient states she has no history of atrial fibrillation does not take any anticoagulation. She is also started on heparin and cardiology was consulted after this event. Upon review of the patient's EKG the following day, she appeared not to suffer from atrial fibrillation with RVR and had actually had sinus tachycardia. Tachycardia was likely results of her antihypertensive medications, including her beta ebony, being held. Patient has ceased receive heparin Patient's beta ebony was reintroduced We will continue to monitor (5) Anemia Current Visit: Yes Status: Acute Assessment and plan: Patient presented to the hospital with a hemoglobin of 14.0 After fluid repletion patient's hemoglobin dropped to 11.2, following this her hemoglobin has remained stable around 11 Her baseline hemoglobin appears to be close to 12 pill has had episodes of anemia in the past Her current anemia is likely due to dilution given the amount of fluid she received We will continue to monitor CBC and hemoglobin does not remain stable patient might need Hemoccult GI consult Qualifiers: Anemia type: unspecified type Qualified Code(s): D64.9 - Anemia, unspecified (6) DVT prophylaxis Current Visit: Yes Status: Acute Assessment and plan: Heparin subcutaneous twice a day 5000 units - Subjective Interval history: Patient reports that she is doing well today, without new concerns/complaints. She states she is ready for discharge and is looking forward to going home. Unfortunately, we have not been able to obtain a PT/OT eval yet and patient was found confused and walking around asking for her sister (who is not present). During this time she is also running into things it was felt best to have a full evaluation for disposition before discharge. - Constitutional Vitals: Temp Pulse Resp BP Pulse Ox 97.9 F 71 17 186/83 95 03/12/17 11:51 03/12/17 11:51 03/12/17 11:51 03/12/17 11:51 03/12/17 11:51 General appearance: Present: cooperative, A&O X 3, pleasant, no acute distress, answers questions appropriately Exam: General: Cooperative, pleasant, no acute distress, alert and oriented 3, answers questions appropriately HEENT: Normocephalic, atraumatic, sclera anicteric, oral mucosa moist Respiratory: No accessory muscle usage, clear to auscultation bilaterally, no wheezes/rhonchi/rales appreciated Cardiovascular: Regular rate and rhythm, S1 and S2 present, no murmurs/rubs/ gallops/clicks appreciated GI/abdominal: Nondistended, nontender, soft, normal bowel sounds, no peritoneal signs Extremities: No calf tenderness, mild pedal edema appreciated, warm, lower extremity pulses palpable and symmetrical Neurological: Alert and oriented 3, no facial droop, no focal deficits Internal Medicine: Result - Labs CBC & Chem 7: 03/12/17 05:02 03/12/17 05:02 Labs: Short CBC 03/12/17 Range/Units 05:02 WBC 4.5 (4.3-11.1) K/mcL Hgb 10.7 L (11.5-15.4) g/dL Hct 32.7 L (35.3-44.9) % Plt Count 154 (140-400) K/mcL Neutrophils # 2.7 (1.6-8.9) K/mcL BMP 03/12/17 05:02 Sodium 143 Potassium 4.1 Chloride 114 H Carbon Dioxide 25 BUN 13 Creatinine 1.11 Glucose 93 Calcium 8.7 - ABG Interpretation ABG results: PT/INR, D-dimer PT 11.4 Seconds (9.4-12.1) 03/10/17 00:58 - Impressions Impressions Chest X-Ray 03/11/17 09:29 IMPRESSION: Vertically-oriented interface projecting over right lateral lung base favored to represent a skin fold. Small pneumothorax is considered less likely. Left perihilar and basilar airspace disease increased from 11/07/2017. D/ / Haroldo Cleary MD / Haroldo Cleary MD Interpreting Provider: Haroldo Cleary MD Consult Discharge Plan - Plan Referrals: Chris Lazaro MD [Primary Care Provider] - <Nilton Foster - Last Filed: 03/12/17 17:38> Date of Encounter: 03/12/17 - Assessment and plan (1) Orthostatic hypotension Current Visit: Yes Status: Acute (2) Dehydration Current Visit: Yes Status: Resolved (3) Acute kidney injury Current Visit: Yes Status: Resolved (4) Anemia Current Visit: Yes Status: Acute Qualifiers: Anemia type: other cause Other causes of anemia: chronic disease, other Qualified Code(s): D63.8 - Anemia in other chronic diseases classified elsewhere - Constitutional Vitals: Temp Pulse Resp BP Pulse Ox 98.2 F 85 17 166/84 96 03/12/17 16:34 03/12/17 16:34 03/12/17 16:34 03/12/17 16:34 03/12/17 16:34 Internal Medicine: Result - Labs CBC & Chem 7: 03/12/17 05:02 03/12/17 05:02 Labs: Short CBC 03/12/17 Range/Units 05:02 WBC 4.5 (4.3-11.1) K/mcL Hgb 10.7 L (11.5-15.4) g/dL Hct 32.7 L (35.3-44.9) % Plt Count 154 (140-400) K/mcL Neutrophils # 2.7 (1.6-8.9) K/mcL BMP 03/12/17 05:02 Sodium 143 Potassium 4.1 Chloride 114 H Carbon Dioxide 25 BUN 13 Creatinine 1.11 Glucose 93 Calcium 8.7 - ABG Interpretation ABG results: PT/INR, D-dimer PT 11.4 Seconds (9.4-12.1) 03/10/17 00:58 - Impressions Impressions Abdomen X-Ray 03/12/17 16:27 IMPRESSION: Increased stool. D/ / Daniel Cheng MD / Daniel Cheng MD Interpreting Provider: Daniel Cheng MD - Attending Attestation I examined this patient and my medical decision-making was reviewed with the Resident Physician on 03/12/17. I agree with the documented findings, disposition and treatment plan as described except to the extent set forth below. Ms Tolliver is currently admitted for dehydration and acute renal failure. She remains moderate to high risk due to potential for worsening clinical status. Ms Tolliver seems a little more confused today. She was wandering in the [place] and searching for her sister. No fever or chills. No pain at this time. Tolerating diet. Exam alert. Comfortable Mucus membranes dry Heart reg No wheeze I/P 1 ASHTYN - resolved 2. Confusion - may need repeat head CT Further diagnoses and plan as above.
[2017-03-12] MEDS: Acetaminophen 325 MG TABLET PO PRN (22:33)
[2017-03-13 03:13] LABS: Basophils % 0.4 %; Eosinophils # 0.1 K/mcL (0.0-0.6); Eosinophils % 2.2 %; Hematocrit 34.6 % (35.3-44.9); Hemoglobin 11.5 g/dL (11.5-15.4); Immature Granulocytes % 0.8 % (0-4); Lymphocytes # 1.4 K/mcL (0.6-4.6); Lymphocytes % 27.1 %; Mean Corpuscular HGB Conc 33.2 g/dL (31.6-35.5); Mean Corpuscular Hemoglobin 28.7 pg (28.0-33.3); Mean Corpuscular Volume 86.3 fL (83.0-100.0); Mean Platelet Volume 9.8 fL (9.4-12.4); Monocytes # 0.4 K/mcL (0.0-1.3); Monocytes % 7.6 %; Neutrophils # 3.1 K/mcL (1.6-8.9); Platelet Count 154 K/mcL (140-400); Red Blood Count 4.01 M/mcL (3.82-4.97); Red Cell Distribution Width 13.6 % (11.5-14.5); Segmented Neutrophils % 61.9 %
[2017-03-13] MEDS: *HR* Heparin 5,000 UNIT/ML VIAL SQ SCH ×2 (05:38→18:38)
[2017-03-13] MEDS: *HR* OxyCODONE Immed Rel 5 MG TABLET PO PRN ×2 (05:42→19:52)
[2017-03-13] MEDS: Metoprolol XL (24 HR) Succ 25 MG TAB.ER.24H PO SCH (07:23)
[2017-03-13] MEDS ORDERED: *HR* Metoprolol 5 MG/5 ML VIAL IVP ONE ×3 (07:31→08:10)
[2017-03-13] MEDS ORDERED: *HR* Heparin 5,000 UNIT/ML VIAL IVP ONE (09:09)
[2017-03-13] MEDS ORDERED: *HR* Heparin 5,000 UNIT/ML VIAL IVP PRN ×2 (09:09)
[2017-03-13] MEDS ORDERED: Heparin 25,000 UNIT/500 ML D5W 25,000 UNIT/500 ML BAG IVC SCH (09:15)
[2017-03-13] MEDS: Lisinopril 20 MG TABLET PO SCH (09:56)
[2017-03-13] MEDS: Azithromycin 250 MG TABLET PO SCH (09:56)
[2017-03-13] MEDS: Gabapentin 100 MG CAPSULE PO SCH ×3 (09:56→19:52)
[2017-03-13] MEDS: amLODIPine 5 MG TABLET PO SCH (09:56)
[2017-03-13] MEDS: cefTRIAXone 1,000 MG in Water for inj. (sterile) 10 ML IVP SCH (09:56)
[2017-03-13 10:10] LABS: Prothrombin Time 11.2 Seconds (9.4-12.1)
[2017-03-13 10:12] LABS: Activated Partial Thrombo Time 48.4 Seconds (26.0-36.0)
--- NOTE | 2017-03-13 11:29 | Internal Med Progress Note ---
<Brent Lamas - Last Filed: 03/13/17 13:58> Date of Encounter: 03/13/17 Time of Encounter: 08:45 - Assessment and plan (1) Pneumonia Current Visit: Yes Status: Suspected Assessment and plan: Day 5 of 7 of azithromycin and ceftriaxone via IV was given today Qualifiers: Pneumonia type: due to unspecified organism Laterality: right Lung location: lower lobe of lung Qualified Code(s): J18.1 - Lobar pneumonia, unspecified organism (2) Atrial fibrillation with RVR Current Visit: Yes Status: Acute Assessment and plan: At approximately 0730 today, patient experienced new onset atrial fibrillation with RVR with maximum recorded rate of 173. Heart rate continued to be in the 170s. She was given 2 doses of 5 mg Metoprolol which brought her heart rate down into the 70s at 0830 Cardiology was consulted, appreciate input. Patient to have outpatient 30 day event monitor, with follow up at afib clinic in 1-2 months. CHADS-VASC of 4, but high risk of fall, so we will not initiate anticoagulation beyond ASA 81 mg (3) Dehydration Current Visit: Yes Status: Resolved Assessment and plan: Resolved. Continue oral hydration. Continue to monitor I's and O's (4) Acute kidney injury Current Visit: Yes Status: Acute Assessment and plan: Resolved. Home HTN meds restarted. Continue oral hydration. (5) Anemia Current Visit: Yes Status: Acute Assessment and plan: Most likely dilutional Improved. Hgb 11.5 today, up from 10.7. Qualifiers: Anemia type: other cause Other causes of anemia: chronic disease, other Qualified Code(s): D63.8 - Anemia in other chronic diseases classified elsewhere - Subjective Interval history: Patient continues to do well. Denies any complaints at this time. Had an episode of afib RVR with rate into the 170s overnight. This was corrected with IV metoprolol. She does continue to have some waxing and waning confusion. She denies any palpitations, dyspnea, chest pain, and dizziness. - Constitutional Vitals: Temp Pulse Resp BP Pulse Ox 98.1 F 83 16 146/78 98 03/13/17 10:52 03/13/17 10:52 03/13/17 10:52 03/13/17 10:52 03/13/17 10:52 General appearance: Present: cooperative, A&O X 2 (Oriented to self and time), pleasant, no acute distress, answers questions appropriately - Eye Eye exam: Present: EOMI, normal appearance, PERRL - Neck Neck exam general surgery: Present: trachea midline - Respiratory Respiratory exam: Present: CTAB. Absent: accessory muscle use, respiratory distress - Cardiovascular Cardiovascular exam: Present: RRR, +S1, +S2. Absent: irregular rhythm - GI/Abdominal GI/Abdominal exam: Present: normal bowel sounds, soft, no peritoneal signs. Absent: tenderness - Extremities Exam Extremities exam: Absent: pedal edema - Neurological Exam Neurological exam: Present: alert (Oriented x2), no focal deficits - Psychiatric Psychiatric exam: Present: normal affect, normal mood. Absent: agitated, anxious - Skin Skin exam: Present: dry, warm Internal Medicine: Result - Labs CBC & Chem 7: 03/13/17 02:34 03/12/17 05:02 Labs: Short CBC 03/13/17 Range/Units 02:34 WBC 5.0 (4.3-11.1) K/mcL Hgb 11.5 (11.5-15.4) g/dL Hct 34.6 L (35.3-44.9) % Plt Count 154 (140-400) K/mcL Neutrophils # 3.1 (1.6-8.9) K/mcL BMP 03/12/17 05:02 Sodium 143 Potassium 4.1 Chloride 114 H Carbon Dioxide 25 BUN 13 Creatinine 1.11 Glucose 93 Calcium 8.7 - ABG Interpretation ABG results: PT/INR, D-dimer PT 11.2 Seconds (9.4-12.1) 03/13/17 09:49 - Impressions Impressions Abdomen X-Ray 03/12/17 16:27 IMPRESSION: Increased stool. D/ / Daniel Cheng MD / Daniel Cheng MD Interpreting Provider: Daniel Cheng MD Consult Discharge Plan - Plan Referrals: Chris Lazaro MD [Primary Care Provider] - <Nilton Foster - Last Filed: 03/13/17 19:08> Date of Encounter: 03/13/17 - Assessment and plan (1) Orthostatic hypotension Current Visit: Yes Status: Resolved (2) Dehydration Current Visit: Yes Status: Resolved (3) Acute kidney injury Current Visit: Yes Status: Resolved (4) Anemia Current Visit: Yes Status: Acute Qualifiers: Anemia type: other cause Other causes of anemia: chronic disease, other Qualified Code(s): D63.8 - Anemia in other chronic diseases classified elsewhere (5) Pneumonia Current Visit: Yes Status: Suspected Qualifiers: Pneumonia type: due to Pneumococcus Laterality: right Lung location: lower lobe of lung Qualified Code(s): J13 - Pneumonia due to Streptococcus pneumoniae (6) Atrial fibrillation Current Visit: Yes Status: Suspected Qualifiers: Atrial fibrillation type: paroxysmal Qualified Code(s): I48.0 - Paroxysmal atrial fibrillation - Constitutional Vitals: Temp Pulse Resp BP Pulse Ox 98.5 F 76 18 154/67 96 03/13/17 14:21 03/13/17 14:21 03/13/17 14:21 03/13/17 14:21 03/13/17 14:21 Internal Medicine: Result - Labs CBC & Chem 7: 03/13/17 02:34 03/12/17 05:02 Labs: Short CBC 03/13/17 Range/Units 02:34 WBC 5.0 (4.3-11.1) K/mcL Hgb 11.5 (11.5-15.4) g/dL Hct 34.6 L (35.3-44.9) % Plt Count 154 (140-400) K/mcL Neutrophils # 3.1 (1.6-8.9) K/mcL - ABG Interpretation ABG results: PT/INR, D-dimer PT 11.2 Seconds (9.4-12.1) 03/13/17 09:49 - Attending Attestation I examined this patient and my medical decision-making was reviewed with the Resident Physician on 03/13/17. I agree with the documented findings, disposition and treatment plan as described except to the extent set forth below. Ms Tolliver is currently admitted for fall. She has tachycardia with concern for a fib. She remains moderate to high risk due to potential for worsening clinical status. Ms Tolliver had tachycardia again today. Now she is in NSR. Denies pain. No fever or chills. To have event monitor at discharge. Exam Alert. Comfortable Mucus membranes dry Heart reg now Lungs clear Abd soft I/P 1. Tachycardia possibly a fib 2. PNA Further diagnoses and plan as above.
--- NOTE | 2017-03-13 12:21 | Cardiology Consult Note ---
Date of Encounter: 03/13/17 Time of Encounter: 12:18 Assessment and Plan (1) Atrial fibrillation with RVR Current Visit: Yes Status: Acute Suspect sinus tachycardia and not afib however will obtain a 30 day event as an OP and follow up with EP afib clinic. This follow up appt should be in 1-2 months after placement of the event monitor. ASA 81 mg for stroke risk reduction is appropriate for suspicious Afib. Patient Chads Vasc is 4 but high risk for falls hence AC not indicated. Discussion w patient/family: The assessment and plan as outlined above was discussed with the patient and/or family members who expressed understanding and agreement. All questions were answered. Thank you for involving us in the care of your patient. Please call with any questions. History of Present Illness Consult date: 03/13/17 Consult reason: Atrial Fibrillation Chief complaint: rapid heart rate History of present illness: Ms. Tolliver is a 76 year old female with h/o HTN, fibromyalgia unremakable ECHO with nml EF and nml size LA. She denies any palpitatons, CP, SOB, STEINBERG, orthopnea or PND. Noted was sinus tachycardia after stopping her BB or low BP. One episode of HR aboe 170bpm improved with one dose of IV metoprolol. Regular rate with some PACs Vs Afib. Currently in NSR 60-70bpm. Would recommend 30 day event monitor upon discharge to confirm PAF and ASA 81 mg for stroke risk reduction. In case patient does have Afib she is not a candidate for AC due to multiple falls and multiple bone fractures as a result. Currently well controlled NSR. Past Med Surg Social Fam HX - Past Medical History Medical history: fibromyalgia, hypertension Psychiatric history: anxiety - Past Surgical History Surgical History: hip replacement, other - Social History Smoking Status: Never smoker Smokeless Tobacco Status: No Alcohol use: none Drug use: none - Family History Mother History Unknown: Yes Living Status: Father History Unknown: Yes Living Status: Medications and Allergies Acetaminophen [Tylenol Arthritis] 650 mg PO Q8H PRN 03/09/17 [History] Amitriptyline [Elavil] 25 mg PO HS 03/09/17 [History] Celecoxib [Celebrex] 200 mg PO DAILY 03/09/17 [History] Cholecalciferol (Vitamin D3) [Vitamin D3] 5,000 unit PO DAILY 03/09/17 [History] Duloxetine HCl [Cymbalta] 60 mg PO HS 03/09/17 [History] Gabapentin [Neurontin] 100 mg PO TID 03/09/17 [History] Lisinopril [Zestril] 20 mg PO DAILY 03/09/17 [History] Loperamide HCl [Anti-Diarrheal] 2 mg PO Q4H PRN 03/09/17 [History] Mag Hydrox/Al Hydrox/Simeth [Antacid Suspension] 30 ml PO Q4H PRN 03/09/17 [ History] Metoprolol Succinate 25 mg PO DAILY 03/09/17 [History] Mirtazapine 7.5 mg PO HS 03/09/17 [History] Omeprazole [PriLOSEC] 20 mg PO DAILY 03/09/17 [History] Venlafaxine HCl [Venlafaxine HCl ER] 37.5 mg PO BID 03/09/17 [History] Vitamin B Complex [B Complex] 1 each PO DAILY 03/09/17 [History] amLODIPine [Norvasc] 5 mg PO DAILY 03/09/17 [History] traZODone [TraZODone] 75 mg PO HS 03/09/17 [History] 3 Allergy/AdvReac Type Severity Reaction Status Date / Time diltiazem [From Cardizem] Allergy Agitated Verified 03/09/17 12:28 morphine AdvReac Agitated Verified 04/18/15 11:05 pregabalin [From Lyrica] AdvReac Agitated Verified 04/18/15 11:05 All Systems Review: A 10-system review of systems was performed and is negative for pertinent findings except as documented above in the HPI. Physical Examination Vital Signs, Last 4 Hours Temp Pulse Resp BP Pulse Ox 03/13/17 10:52 98.1 F 83 16 146/78 98 03/13/17 10:01 79 140/85 97 03/13/17 08:31 73 03/13/17 08:25 159 130/92 General: Conversant, No Apparent Distress HEENT: Atraumatic, Normocephaly, Mucus Membranes Moist Neck: No JVD, Normal carotid pulses Cardiac: Reg Rate and Rhythm, Normal S1 and S2, No Murmur Lungs: Normal Breath Sounds, No Wheeze, Rales, Rhonchi Neuro: Alert and responsive, No focal deficits noted Abdomen: Soft, Non-Tender Skin: No rashes noted on visualized skin Musculoskeletal: No Chest Wall Tenderness Extremities: No Clubbing, No Cyanosis, No Edema, Normal Pulses Results 03/13/17 02:34 03/12/17 05:02 Lab Results 03/12/17 03/13/17 03/13/17 05:02 02:34 09:49 WBC 5.0 Hgb 11.5 Hct 34.6 L Plt Count 154 INR 1.0 APTT 48.4 H Sodium 143 Potassium 4.1 Chloride 114 H Carbon Dioxide 25 BUN 13 Creatinine 1.11 Glucose 93 Calcium 8.7 Lipase 29 Consult Discharge Plan - Plan Referrals: Chris Lazaro MD [Primary Care Provider] -
[2017-03-13] MEDS: Aspirin 81 MG TAB.CHEW PO SCH (15:47)
[2017-03-14] MEDS: *HR* Heparin 5,000 UNIT/ML VIAL SQ SCH ×2 (05:20→16:47)
[2017-03-14 06:54] LABS: Basophils % 0.5 %; Eosinophils # 0.1 K/mcL (0.0-0.6); Eosinophils % 3.5 %; Hematocrit 32.9 % (35.3-44.9); Hemoglobin 10.8 g/dL (11.5-15.4); Lymphocytes # 1.3 K/mcL (0.6-4.6); Lymphocytes % 31.9 %; Mean Corpuscular HGB Conc 32.8 g/dL (31.6-35.5); Mean Corpuscular Hemoglobin 28.3 pg (28.0-33.3); Mean Corpuscular Volume 86.1 fL (83.0-100.0); Mean Platelet Volume 9.7 fL (9.4-12.4); Monocytes # 0.4 K/mcL (0.0-1.3); Monocytes % 9.1 %; Neutrophils # 2.2 K/mcL (1.6-8.9); Platelet Count 157 K/mcL (140-400); Red Blood Count 3.82 M/mcL (3.82-4.97); Red Cell Distribution Width 13.6 % (11.5-14.5)
[2017-03-14] MEDS: cefTRIAXone 1,000 MG in Water for inj. (sterile) 10 ML IVP SCH (09:50)
[2017-03-14] MEDS: Metoprolol XL (24 HR) Succ 25 MG TAB.ER.24H PO SCH (09:53)
[2017-03-14] MEDS: Lisinopril 20 MG TABLET PO SCH (09:53)
[2017-03-14] MEDS: Gabapentin 100 MG CAPSULE PO SCH ×3 (09:53→20:32)
[2017-03-14] MEDS: Azithromycin 250 MG TABLET PO SCH (09:53)
[2017-03-14] MEDS: amLODIPine 5 MG TABLET PO SCH (09:54)
[2017-03-14] MEDS: Aspirin 81 MG TAB.CHEW PO SCH (09:54)
--- NOTE | 2017-03-14 10:19 | Internal Med Progress Note ---
<Jose Dumont - Last Filed: 03/14/17 13:42> Date of Encounter: 03/14/17 Time of Encounter: 10:17 - Assessment and plan (1) Pneumonia Current Visit: Yes Status: Suspected Assessment and plan: Clinically improving without any rales or rhonchi heard on exam today. Denies any pleuritic chest pain, SOB, fevers, chills, cough Influenza swabs are negative. Blood cultures are still pending. Day 6 of azithromycin and ceftriaxone via IV Discharge planning: Plan is for discharge tomorrow after PT and OT consults for recommendations. Patient is a resident at [facility] and with the concerns for confusion and ambulating, there is a possibility for short term rehab. Qualifiers: Pneumonia type: due to unspecified organism Laterality: right Lung location: lower lobe of lung Qualified Code(s): J18.1 - Lobar pneumonia, unspecified organism (2) Tachycardia Current Visit: Yes Status: Acute Assessment and plan: HR up in 170s yesterday morning, sinus tach HR 70-80s on tele today Cardiology following Plan: Metoprolol Obtain a 30 day event as an outpatient and follow up with EP afib clinic in 1-2 months after placement of the event monitor to rule out afib ASA 81 mg for stroke risk reduction is appropriate for suspicious Afib. Patient Chads Vasc is 4 but high risk for falls hence AC not indicated. (3) Acute kidney injury Current Visit: Yes Status: Acute Assessment and plan: Resolved. Home HTN meds restarted. Continue oral hydration. (4) Dehydration Current Visit: Yes Status: Resolved Assessment and plan: Resolved. Continue oral hydration. Continue to monitor I's and O's (5) Anemia Current Visit: Yes Status: Acute Assessment and plan: Improved. Hgb stable at 10.8 Qualifiers: Anemia type: other cause Other causes of anemia: chronic disease, other Qualified Code(s): D63.8 - Anemia in other chronic diseases classified elsewhere (6) HTN (hypertension) Current Visit: Yes Status: Acute Assessment and plan: BP stable at this time. Continue Norvasc, Zestril and Toprol unchanged Qualifiers: Hypertension type: essential hypertension Qualified Code(s): I10 - Essential (primary) hypertension (7) DVT prophylaxis Current Visit: Yes Status: Acute Assessment and plan: Heparin 5000 units subcutaneous twice a day - Subjective Interval history: Patient admitted for ASHTYN and dehydration. Resting comfortably in bed this morning Nursing states that she was confused yesterday, turning off bed alarm and getting up without assistance Patient sitter present now No new concerns overnight - has been pleasant since sitter AAOx3 this morning Denies any CP, SOB, palpitations, fevers, chills, abdominal pain or GI issues. - Constitutional Vitals: Temp Pulse Resp BP Pulse Ox 97.9 F 74 16 143/67 93 03/14/17 09:42 03/14/17 09:42 03/14/17 09:42 03/14/17 09:42 03/14/17 09:42 General appearance: Present: cooperative, A&O X 3, pleasant, no acute distress, answers questions appropriately - Head Head exam: Present: atraumatic, normocephalic - Eye Eye exam: Present: EOMI, normal appearance, conjuntiva pink, sclera anicteric - ENT ENT exam: Present: mucous membranes moist - Neck Neck exam general surgery: Present: supple, trachea midline - Respiratory Respiratory exam: Present: CTAB. Absent: respiratory distress, rhonchi, wheezes - Cardiovascular Cardiovascular exam: Present: RRR, +S1, +S2 - GI/Abdominal GI/Abdominal exam: Present: normal bowel sounds, soft. Absent: tenderness - Extremities Exam Extremities exam: Present: warm. Absent: calf tenderness, pedal edema, tenderness - Neurological Exam Neurological exam: Present: alert, oriented X3, no focal deficits - Psychiatric Psychiatric exam: Present: normal affect, normal mood - Skin Skin exam: Present: dry, normal color, warm. Absent: diaphoretic Internal Medicine: Result - Labs CBC & Chem 7: 03/14/17 06:18 03/12/17 05:02 Labs: Short CBC 03/14/17 Range/Units 06:18 WBC 4.1 L (4.3-11.1) K/mcL Hgb 10.8 L (11.5-15.4) g/dL Hct 32.9 L (35.3-44.9) % Plt Count 157 (140-400) K/mcL Neutrophils # 2.2 (1.6-8.9) K/mcL - ABG Interpretation ABG results: PT/INR, D-dimer PT 11.2 Seconds (9.4-12.1) 03/13/17 09:49 Consult Discharge Plan - Plan Referrals: Chris Lazaro MD [Primary Care Provider] - <Mushtaq Miles - Last Filed: 03/14/17 19:12> Date of Encounter: 03/14/17 - Constitutional Vitals: Temp Pulse Resp BP Pulse Ox 97.9 F 85 16 120/57 93 03/14/17 09:42 03/14/17 18:56 03/14/17 18:56 03/14/17 18:56 03/14/17 18:56 Internal Medicine: Result - Labs CBC & Chem 7: 03/14/17 06:18 03/12/17 05:02 Labs: Short CBC 03/14/17 Range/Units 06:18 WBC 4.1 L (4.3-11.1) K/mcL Hgb 10.8 L (11.5-15.4) g/dL Hct 32.9 L (35.3-44.9) % Plt Count 157 (140-400) K/mcL Neutrophils # 2.2 (1.6-8.9) K/mcL - ABG Interpretation ABG results: PT/INR, D-dimer PT 11.2 Seconds (9.4-12.1) 03/13/17 09:49 - Attending Attestation I examined this patient and my medical decision-making was reviewed with the Resident Physician Dr. Dumont. I agree with the documented findings, disposition and treatment plan as described except to the extent set forth below. This is a 76 y/o F admitted here for acute pneumonia. Today she is more alert, awake and O x to place and self. 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 Gen: A, A, Chest: CTA, No wheezing Heart : S1 S2 + RRR No murmurs a/p 1. Acute pneumonia d/c Azithro switch to PO Augmentin # 6/7 2. Physical deconditioning PT / OT eval may need SNF placement
[2017-03-14] MEDS ORDERED: Sennosides/Docusate Sodium TABLET PO PRN (11:50)
[2017-03-14] MEDS: Acetaminophen 325 MG TABLET PO PRN (18:25)
--- NOTE | 2017-03-14 20:28 | Electrocardiograph Report ---
[address] [place], [place] [address] Test Date: 2017-03-13 Pat Name: Lucy Tolliver Department: 114 Room: [facility] Gender: F Educational Interpreter: : 1940 Requested By: Nilton Foster Order Number: [id number] Reading MD: Kaley Carreon Measurements Intervals [place] Rate: 173 P: [place]: 0 QRS: 64 QRSD: 113 T: -41 QT: 296 QTc: 389 Interpretive Statements ATRIAL FIBRILLATION WITH RAPID VENTRICULAR RESPONSE INCOMPLETE RIGHT BUNDLE BRANCH BLOCK RIGHT VENTRICULAR HYPERTROPHY AND ST-T CHANGE ST DEPRESSION, CONSIDER SUBENDOCARDIAL INJURY Electronically Signed On 03-14-2017 20:27:13 EST by Kaley Carreon
[2017-03-15] MEDS: *HR* Heparin 5,000 UNIT/ML VIAL SQ SCH ×2 (05:24→17:28)
[2017-03-15] MEDS: Gabapentin 100 MG CAPSULE PO SCH ×3 (08:20→20:17)
[2017-03-15] MEDS: Lisinopril 20 MG TABLET PO SCH (08:20)
[2017-03-15] MEDS: Aspirin 81 MG TAB.CHEW PO SCH (08:21)
[2017-03-15] MEDS: amLODIPine 5 MG TABLET PO SCH (08:21)
[2017-03-15] MEDS: Metoprolol XL (24 HR) Succ 25 MG TAB.ER.24H PO SCH (08:21)
--- NOTE | 2017-03-15 09:09 | Internal Med Progress Note ---
<Jose Dumont - Last Filed: 03/15/17 11:50> Date of Encounter: 03/15/17 Time of Encounter: 09:07 - Assessment and plan (1) Pneumonia Current Visit: Yes Status: Acute Assessment and plan: Clinically improving without any rales or rhonchi heard on exam today. Denies any pleuritic chest pain, SOB, fevers, chills, cough No Leukocytosis, VSS Influenza swabs are negative. Received 4 days of azithromycin and ceftriaxone via IV Switched to Augmentin BID for 3 more days Discharge planning: PT and OT recommend SNF placement for rehab goals. Pending PA for [facility] at this time. Qualifiers: Pneumonia type: due to unspecified organism Laterality: right Lung location: lower lobe of lung Qualified Code(s): J18.1 - Lobar pneumonia, unspecified organism (2) Tachycardia Current Visit: Yes Status: Acute Assessment and plan: Previous HR up in 170s on 03/13/17; sinus tach HR 70-80s on tele today Plan: Metoprolol Obtain a 30 day event as an outpatient and follow up with EP afib clinic in 1-2 months after placement of the event monitor to rule out afib ASA 81 mg for stroke risk reduction is appropriate for suspicious Afib. Patient Chads Vasc is 4 but high risk for falls hence AC not indicated. (3) Acute kidney injury Current Visit: Yes Status: Acute Assessment and plan: Resolved. Home HTN meds restarted. Continue oral hydration. (4) Dehydration Current Visit: Yes Status: Resolved Assessment and plan: Resolved. Continue oral hydration. Continue to monitor I's and O's (5) Anemia Current Visit: Yes Status: Acute Assessment and plan: Improved. Hgb stable at 10.8 Qualifiers: Anemia type: other cause Other causes of anemia: chronic disease, other Qualified Code(s): D63.8 - Anemia in other chronic diseases classified elsewhere (6) HTN (hypertension) Current Visit: Yes Status: Acute Assessment and plan: BP stable at this time. Continue Norvasc, Zestril and Toprol unchanged Qualifiers: Hypertension type: essential hypertension Qualified Code(s): I10 - Essential (primary) hypertension (7) Physical deconditioning Current Visit: Yes Status: Acute Assessment and plan: PT/OT recommend SNF placement for rehabilitation goals Pending PA for [facility] (8) DVT prophylaxis Current Visit: Yes Status: Acute Assessment and plan: Heparin 5000 units subcutaneous twice a day - Subjective Interval history: Patient admitted for PNA, ASHTYN and dehydration. Resting comfortably in bed this morning No new concerns overnight AAOx3 this morning Denies any CP, SOB, palpitations, fevers, chills, abdominal pain or GI issues. - Constitutional Vitals: Temp Pulse Resp BP Pulse Ox 97.8 F 85 16 148/91 93 03/15/17 06:35 03/15/17 06:35 03/15/17 06:35 03/15/17 06:35 03/15/17 06:35 General appearance: Present: cooperative, A&O X 3, pleasant, no acute distress, answers questions appropriately - Head Head exam: Present: atraumatic, normocephalic - Eye Eye exam: Present: EOMI, normal appearance, conjuntiva pink, sclera anicteric - ENT ENT exam: Present: mucous membranes moist - Neck Neck exam general surgery: Present: supple, trachea midline - Respiratory Respiratory exam: Present: CTAB. Absent: respiratory distress, rhonchi, wheezes - Cardiovascular Cardiovascular exam: Present: RRR, +S1, +S2 - GI/Abdominal GI/Abdominal exam: Present: normal bowel sounds, soft. Absent: distended, tenderness - Extremities Exam Extremities exam: Present: warm. Absent: pedal edema, tenderness - Neurological Exam Neurological exam: Present: alert, oriented X3, no focal deficits - Psychiatric Psychiatric exam: Present: normal affect, normal mood - Skin Skin exam: Present: dry, normal color, warm. Absent: diaphoretic Internal Medicine: Result - Labs CBC & Chem 7: 03/14/17 06:18 03/12/17 05:02 - ABG Interpretation ABG results: PT/INR, D-dimer PT 11.2 Seconds (9.4-12.1) 03/13/17 09:49 Consult Discharge Plan - Plan Referrals: Chris Lazaro MD [Primary Care Provider] - <Mushtaq Miles - Last Filed: 03/15/17 18:23> Date of Encounter: 03/15/17 - Constitutional Vitals: Temp Pulse Resp BP Pulse Ox 98.3 F 77 14 138/69 94 03/15/17 15:20 03/15/17 15:20 03/15/17 15:20 03/15/17 15:20 03/15/17 15:20 Internal Medicine: Result - Labs CBC & Chem 7: 03/14/17 06:18 03/12/17 05:02 - ABG Interpretation ABG results: PT/INR, D-dimer PT 11.2 Seconds (9.4-12.1) 03/13/17 09:49 - Attending Attestation I examined this patient and my medical decision-making was reviewed with the Resident Physician Dr. Dumont. I agree with the documented findings, disposition and treatment plan as described except to the extent set forth below. This is a 76 y/o F admitted here for acute pneumonia. Today she is more alert, awake and O x to place and self. 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 Gen: A, A, Chest: CTA, No wheezing Heart : S1 S2 + RRR No murmurs a/p 1. Acute pneumonia cont PO Augmentin # 7/7 2. Physical deconditioning PT / OT eval Does need SNF placement
[2017-03-15] MEDS: *HR* OxyCODONE Immed Rel 5 MG TABLET PO PRN (20:31)
[2017-03-16] MEDS: *HR* Heparin 5,000 UNIT/ML VIAL SQ SCH (05:53)
[2017-03-16 07:28] VITALS: BP 162/80
--- NOTE | 2017-03-16 07:36 | Discharge Summary ---
<Jose Dumont - Last Filed: 03/16/17 09:14> Date of Encounter: 03/16/17 Time of Encounter: 07:31 - Discharge Diagnosis (1) Pneumonia Priority: Primary Status: Acute Qualifiers: Pneumonia type: due to unspecified organism Laterality: right Lung location: lower lobe of lung Qualified Code(s): J18.1 - Lobar pneumonia, unspecified organism (2) Tachycardia Priority: Primary Status: Resolved (3) Acute kidney injury Priority: Primary Status: Resolved (4) Dehydration Priority: Primary Status: Resolved (5) Anemia Priority: Secondary Status: Acute Qualifiers: Anemia type: other cause Other causes of anemia: chronic disease, other Qualified Code(s): D63.8 - Anemia in other chronic diseases classified elsewhere (6) HTN (hypertension) Priority: Secondary Status: Acute Qualifiers: Hypertension type: essential hypertension Qualified Code(s): I10 - Essential (primary) hypertension (7) Physical deconditioning Priority: Secondary Status: Acute (8) DVT prophylaxis Priority: Secondary Status: Acute - Discharge Medications Prescriptions: Amoxicillin/Clavulanate [Augmentin] 875 mg PO BIDWM 1 Days #2 tablet Home Medications: Acetaminophen [Tylenol Arthritis] 650 mg PO Q8H PRN 03/09/17 [History] Amitriptyline [Elavil] 25 mg PO HS 03/09/17 [History] Celecoxib [Celebrex] 200 mg PO DAILY 03/09/17 [History] Cholecalciferol (Vitamin D3) [Vitamin D3] 5,000 unit PO DAILY 03/09/17 [History] Duloxetine HCl [Cymbalta] 60 mg PO HS 03/09/17 [History] Gabapentin [Neurontin] 100 mg PO TID 03/09/17 [History] Lisinopril [Zestril] 20 mg PO DAILY 03/09/17 [History] Loperamide HCl [Anti-Diarrheal] 2 mg PO Q4H PRN 03/09/17 [History] Mag Hydrox/Al Hydrox/Simeth [Antacid Suspension] 30 ml PO Q4H PRN 03/09/17 [ History] Metoprolol Succinate 25 mg PO DAILY 03/09/17 [History] Mirtazapine 7.5 mg PO HS 03/09/17 [History] Omeprazole [PriLOSEC] 20 mg PO DAILY 03/09/17 [History] Venlafaxine HCl [Venlafaxine HCl ER] 37.5 mg PO BID 03/09/17 [History] Vitamin B Complex [B Complex] 1 each PO DAILY 03/09/17 [History] amLODIPine [Norvasc] 5 mg PO DAILY 03/09/17 [History] traZODone [TraZODone] 75 mg PO HS 03/09/17 [History] Amoxicillin/Clavulanate [Augmentin] 875 mg PO BIDWM 1 Days #2 tablet 03/16/17 [ Rx] Aspirin 81 mg PO DAILY tab.chew 03/16/17 [Rx] Allergies/Adverse Reactions: 3 Allergy/AdvReac Type Severity Reaction Status Date / Time diltiazem [From Cardizem] Allergy Agitated Verified 03/09/17 12:28 morphine AdvReac Agitated Verified 04/18/15 11:05 pregabalin [From Lyrica] AdvReac Agitated Verified 04/18/15 11:05 Procedures/tests Complete & Pending: Procedures Performed prior 72 hours Category Date Time Status ECG event monitor 2 weeks [ECG] Routine Y 03/13/17 14:13 Ordered EKG [ECG 12 lead ECG] [ECG] Stat Y 03/13/17 07:18 Completed Date of admission: 03/09/17 18:14 Primary care physician: Chris Lazaro MD Consults: 03/10/17 11:50 Consult to Occupational Therapy [CONS] Routine Comment: Evaluate, develop and implement POC Reason for Consult: eval and treat Consult to Physical Therapy [CONS] Routine Comment: Evaluate, develop and implement POC Reason for Consult: Eval and treat 03/10/17 11:52 Consult to Cell Repairer [CONS] Routine Reason for SW Consult: Discharge planning 03/13/17 09:14 Consult to Cardiology [CONS] Routine Comment: Consulting Provider: Cardiology [place] Reason for Consult: New onset a. fib Call Completed: Yes Discharging clinician: Mushtaq Miles Anticipated date of discharge: 03/16/17 - Patient Status Disposition: Transfer SNF Condition: Good Overall status at discharge: patient is progressing back to baseline - Ambulatory Orders Ambulatory Orders: ECG event monitor [ECG] Time Frame: 4 Weeks, Facility: [facility], Location: Cardiopulmonary Svc - Discharge Instructions Instructions: Dehydration (DC), Acute Kidney Injury (DC), Fall Prevention (DC) Follow Up With: Chris Lazaro MD [Primary Care Provider] - Additional Instructions: Continue to take all medications as prescribed Wear cardiac event monitor for 30 days Will follow-up with EP clinic in 1-2 months for monitor evaluation Take Augmentin BID for one more day - Diet and Activity Activity: as per physical therapy Diet: low salt diet (cardiac) Hospital course: Ms. Tolliver is a 76 year old female who lives independently in her apartment at an assisted livings facility. She had fallen earlier today and was unable to get off the ground without significant assistance. She waited several hours for her friends to arrive. She was brought to the [facility] ER where she was noted to be hypotensive and tachycardic. She was quite volume depleted and clinically dehydrated. She responded nicely to IV fluids and was admitted to the hospitalist service. Workup in the ER was negative including head CT, neck CT, chest x-ray, and shoulder x-ray. Medication list at that time was unknown and it was felt that she was likely suffering from side effects of her antihypertensive and possible diuretic therapy. On evaluation, she was alert, responsive, and appropriate. She received 2 L of IV fluids per ER. She denies any fevers, chills, night sweats, vomiting, or diarrhea. She has had a chronic cough for over a month and it is worsening. She states she has had productive purulent sputum. She has had multiple ill contacts at her facility where they dine in a communal dining room. She cannot recall her medications, but her med list has been updated and verified. She is on multiple antihypertensive and antidepressant medications. She was subsequently admitted for PNA, acute renal failure and dehydration. She did not appear septic, and her lactic acid levels were normal. Blood cultures were taken and negative. She was started on ceftriaxone and azithromycin. Patient responded well to therapy but did have a run of tacchycardia in 170s on 03/10/17 that responded well to IV BB. This was sinus tach and cardiology was consulted. Recommended continuation of her Metoprolol, adding ASA 81 mg for stroke risk reduction and had a 30 day event monitor placed prior to discharge. She will follow up with EP afib clinic in 1-2 months after placement to rule out afib. HR stabilized throughout the remainder of her stay. She received a total of 4 days of IV ceftriaxone and azithromycin and was transitioned to Augmentin for 3 days. She will continue Rx for one more day after discharge. Additionally, she had intermittent episodes of confusion and unstable ambulation with physical deconditioning present. PT/OT evaluated and recommended ECF/SNF. Ms. Tolliver was discharged in stable condition to [facility] on 03/16/17. All questions and concerns were answered. - Time Spent with Patient Total time spent providing and/or coordinating discharge services: - Constitutional Vitals: Temp Pulse Resp BP Pulse Ox 97.9 F 73 18 162/80 95 03/16/17 07:27 03/16/17 07:27 03/16/17 07:27 03/16/17 07:27 03/16/17 07:27 General appearance: Present: cooperative, A&O X 3, pleasant, no acute distress, answers questions appropriately - Head Head exam: Present: atraumatic, normocephalic - Eye Eye exam: Present: EOMI, normal appearance, conjuntiva pink, sclera anicteric - ENT ENT exam: Present: mucous membranes moist - Neck Neck exam general surgery: Present: supple, trachea midline - Respiratory Respiratory exam: Present: CTAB. Absent: respiratory distress - Cardiovascular Cardiovascular exam: Present: RRR, +S1, +S2 - GI/Abdominal GI/Abdominal exam: Present: normal bowel sounds, soft. Absent: tenderness - Extremities Exam Extremities exam: Present: warm. Absent: calf tenderness, pedal edema, tenderness - Neurological Exam Neurological exam: Present: alert, oriented X3, no focal deficits - Psychiatric Psychiatric exam: Present: normal affect, normal mood - Skin Skin exam: Present: dry, normal color, warm. Absent: diaphoretic <Thallakailash,Marcellusbu - Last Filed: 03/16/17 16:30> Date of Encounter: 03/16/17 Procedures/tests Complete & Pending: Procedures Performed prior 72 hours Category Date Time Status ECG event monitor 4 weeks [ECG] Urgent Y 03/16/17 14:39 Ordered Date of admission: 03/09/17 18:14 Primary care physician: Chris Lazaro MD Consults: 03/10/17 11:50 Consult to Occupational Therapy [CONS] Routine Comment: Evaluate, develop and implement POC Reason for Consult: eval and treat Consult to Physical Therapy [CONS] Routine Comment: Evaluate, develop and implement POC Reason for Consult: Eval and treat 03/10/17 11:52 Consult to Cell Repairer [CONS] Routine Reason for SW Consult: Discharge planning 03/13/17 09:14 Consult to Cardiology [CONS] Routine Comment: Consulting Provider: Franklin Concepcion Reason for Consult: New onset a. fib Call Completed: Yes Hospital course: Ms. Tolliver is a 76 year old female - Time Spent with Patient Total time spent providing and/or coordinating discharge services: - Constitutional Vitals: Temp Pulse Resp BP Pulse Ox 97.9 F 73 18 162/80 95 03/16/17 07:27 03/16/17 07:27 03/16/17 07:27 03/16/17 07:27 03/16/17 09:36 - Attending Attestation I examined this patient and my medical decision-making was reviewed with the Resident Physician Dr. Dumont. I agree with the documented findings, disposition and treatment plan as described except to the extent set forth below. This is a 76 y/o F admitted here for acute pneumonia. Today she is more alert, awake and O x to place and self. 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 Gen: A, A, Chest: CTA, No wheezing Heart : S1 S2 + RRR No murmurs a/p 1. Acute pneumonia - mostly bacterial finished abx PO Augmentin # 7/ 2. Physical deconditioning PT / OT eval Medically stable to d/c to ECF today
--- NOTE | 2017-03-16 08:00 | Physician Discharge Referral ---
ExtendedCare Referral Info Transfer To: [facility] Provider in Charge after Transfer: PCP Institutional Level of Care: Skilled - Diagnosis (1) Pneumonia Priority: Primary Status: Acute (2) Tachycardia Priority: Primary Status: Resolved (3) Acute kidney injury Priority: Primary Status: Resolved (4) Dehydration Priority: Primary Status: Resolved (5) Anemia Priority: Secondary Status: Acute (6) HTN (hypertension) Priority: Secondary Status: Acute (7) Physical deconditioning Priority: Secondary Status: Acute (8) DVT prophylaxis Priority: Secondary Status: Acute - Transfer Medications Prescriptions: Amoxicillin/Clavulanate [Augmentin] 875 mg PO BIDWM 1 Days #2 tablet Home Medications: Acetaminophen [Tylenol Arthritis] 650 mg PO Q8H PRN 03/09/17 [History] Amitriptyline [Elavil] 25 mg PO HS 03/09/17 [History] Celecoxib [Celebrex] 200 mg PO DAILY 03/09/17 [History] Cholecalciferol (Vitamin D3) [Vitamin D3] 5,000 unit PO DAILY 03/09/17 [History] Duloxetine HCl [Cymbalta] 60 mg PO HS 03/09/17 [History] Gabapentin [Neurontin] 100 mg PO TID 03/09/17 [History] Lisinopril [Zestril] 20 mg PO DAILY 03/09/17 [History] Loperamide HCl [Anti-Diarrheal] 2 mg PO Q4H PRN 03/09/17 [History] Mag Hydrox/Al Hydrox/Simeth [Antacid Suspension] 30 ml PO Q4H PRN 03/09/17 [ History] Metoprolol Succinate 25 mg PO DAILY 03/09/17 [History] Mirtazapine 7.5 mg PO HS 03/09/17 [History] Omeprazole [PriLOSEC] 20 mg PO DAILY 03/09/17 [History] Venlafaxine HCl [Venlafaxine HCl ER] 37.5 mg PO BID 03/09/17 [History] Vitamin B Complex [B Complex] 1 each PO DAILY 03/09/17 [History] amLODIPine [Norvasc] 5 mg PO DAILY 03/09/17 [History] traZODone [TraZODone] 75 mg PO HS 03/09/17 [History] Amoxicillin/Clavulanate [Augmentin] 875 mg PO BIDWM 1 Days #2 tablet 03/16/17 [ Rx] Aspirin 81 mg PO DAILY tab.chew 03/16/17 [Rx] Allergies/Adverse Reactions: 3 Allergy/AdvReac Type Severity Reaction Status Date / Time diltiazem [From Cardizem] Allergy Agitated Verified 03/09/17 12:28 morphine AdvReac Agitated Verified 04/18/15 11:05 pregabalin [From Lyrica] AdvReac Agitated Verified 04/18/15 11:05 - Respiratory Orders None Smoking Cessation: Smoking cessation has been advised. For more information, call the [place] Tobacco Quit Line at 4-620-DMZB-NOW. - Advance Directives Code Status: Full Code - Mobility Orders Ambulate (with CGA at all times until PT says otherwise) - Rehabiliation Orders Rehab Orders: Evaluation for Physical Therapy, Evaluation for Occupational Therapy - Diet Orders Cardiac House Supplement per Dietary: ensure CERTIFICATION: I certify that the transfer of the above named patient to an Extended Care Facility is necessary for the continuing treatment of the diagnosis listed. The above information is true and accurate reflection of patient's current condition. Confidential - Redisclosure prohibited without a patient's written consent.
[2017-03-16] MEDS: Metoprolol XL (24 HR) Succ 25 MG TAB.ER.24H PO SCH (09:34)
[2017-03-16] MEDS: Lisinopril 20 MG TABLET PO SCH (09:34)
[2017-03-16] MEDS: Aspirin 81 MG TAB.CHEW PO SCH (09:34)
[2017-03-16] MEDS: amLODIPine 5 MG TABLET PO SCH (09:34)
[2017-03-16] MEDS: Gabapentin 100 MG CAPSULE PO SCH (09:34)
[2017-03-16] MEDS: Acetaminophen 325 MG TABLET PO PRN (14:03)
== END 2017-03-16 16:19 | DRG 682 ==
LOC: EMEROO 12:27 → 3NENU 12:27 → SUATTDRO 18:14 → 3NENU 18:37 → 3ANU 03-15 11:31
PROVIDERS: ADMIT Pediatrics; ATTEND Family Medicine

== ENCOUNTER 2017-05-19 20:42 | Inpatient (IN) ==
--- NOTE | 2017-05-19 20:53 | Emergency Department Note ---
Disposition Clinical Impression: Pneumonia, Medication side effect Altered mental status Qualifiers: Altered mental status type: unspecified Qualified Code(s): R41.82 - Altered mental status, unspecified Hypotension Qualifiers: Hypotension type: unspecified hypotension type Qualified Code(s): I95.9 - Hypotension, unspecified Disposition: Admitted As Inpatient Condition: Serious Time of Disposition: 04:30 General Adult HPI - General Chief complaint: ED Chest Pain Stated complaint: low bp Time Seen by Provider: 05/19/17 20:50 Source: patient Mode of arrival: ambulatory Limitations: no limitations Nursing Notes Reviewed: Yes Vital Signs Reviewed: Yes - History of Present Illness HPI Narrative: Patient is a 76-year-old female with past medical history of A. fib, recently started on Cardizem. She [facility] due to concern for hypertension. While in route, the patient was complaining of some chest pain. EMS states that they gave her aspirin 324 mg. Currently, the patient complains of some mild lightheadedness and states that she fell today prior to arrival due to feeling lightheaded and dizzy. She denies any chest pain, shortness of breath, nausea, vomiting, fevers, abdominal pain. She does not report any bright red blood or black stools. She is currently only on aspirin but no other blood thinners. - Related Data Home Medications Medication Instructions Recorded Confirmed Acetaminophen [Tylenol Arthritis] 650 mg PO Q8H PRN 03/09/17 05/20/17 Amitriptyline [Elavil] 25 mg PO HS 03/09/17 05/20/17 Celecoxib [Celebrex] 200 mg PO DAILY 03/09/17 05/20/17 Cholecalciferol (Vitamin D3) 5,000 unit PO DAILY 03/09/17 05/20/17 [Vitamin D3] Duloxetine HCl [Cymbalta] 60 mg PO HS 03/09/17 05/20/17 Gabapentin [Neurontin] 100 mg PO TID 03/09/17 05/20/17 Lisinopril [Zestril] 20 mg PO DAILY 03/09/17 05/20/17 Loperamide HCl [Anti-Diarrheal] 2 mg PO Q4H PRN 03/09/17 05/20/17 Mag Hydrox/Al Hydrox/Simeth 30 ml PO Q4H PRN 03/09/17 05/20/17 [Antacid Suspension] Metoprolol Succinate 25 mg PO DAILY 03/09/17 05/20/17 Mirtazapine 7.5 mg PO HS 03/09/17 05/20/17 Omeprazole [PriLOSEC] 20 mg PO DAILY 03/09/17 05/20/17 Venlafaxine HCl [Venlafaxine HCl 37.5 mg PO BID 03/09/17 05/20/17 ER] Vitamin B Complex [B Complex] 1 each PO DAILY 03/09/17 05/20/17 traZODone [TraZODone] 75 mg PO HS 03/09/17 05/20/17 dilTIAZem HCl [Diltiazem 24Hr Cd] 120 mg PO DAILY 05/20/17 05/20/17 Previous Rx's Medication Instructions Recorded Aspirin 81 mg PO DAILY tab.chew 03/16/17 Allergies Allergy/AdvReac Type Severity Reaction Status Date / Time diltiazem [From Cardizem] Allergy Agitated Verified 05/20/17 12:31 morphine AdvReac Agitated Verified 05/20/17 12:31 pregabalin [From Lyrica] AdvReac Agitated Verified 05/20/17 12:31 All systems ED: reviewed and negative except as stated. Constitutional: Denies: fever Cardiovascular: Reports: chest pain. Denies: palpitations Respiratory: Denies: cough, dyspnea Gastrointestinal: Denies: abdominal pain, nausea, vomiting, diarrhea, constipation, hematemesis, melena, hematochezia Genitourinary: Denies: urgency, dysuria Musculoskeletal: Denies: back pain, neck pain Neurological: Reports: other (Dizziness). Denies: headache, weakness, numbness , paresthesias Past Medical History - Past Medical History Attestation: Yes The following information was validated with the patient. Source: patient Medical history: Reports: fibromyalgia, hypertension Surgical history: Reports: hip replacement, other Psychiatric history: Reports: anxiety - Social History Smoking Status: Never smoker Smokeless Tobacco Status: No Alcohol use: Reports: none Drug use: Reports: none Physical Exam - General Limitations: no limitations General appearance: alert, in no apparent distress - Head Head exam: atraumatic, normocephalic, normal inspection - Eye Eye exam: Present: PERRL, EOMI, other (pallor of lower eyelids) - ENT ENT exam: normal exam, normal oropharynx, mucous membranes moist - Neck Neck exam: Present: normal inspection, full ROM, trachea midline - Chest Chest inspection: Present: normal inspection, symmetric chest wall rise - Respiratory Respiratory exam: Present: normal lung sounds bilaterally - Cardiovascular Cardiovascular exam: Present: regular rate, normal rhythm, normal heart sounds - Abdominal Exam Abdominal exam: Present: soft, Non-Tender. Absent: tenderness, distention, guarding, rebound, rigidity - Extremities Exam Extremities exam: Present: normal inspection, full ROM. Absent: tenderness, pedal edema - Neurological Exam Neurological exam: Present: alert, oriented X3, CN II-XII intact, other ( Bilateral lower extremity weakness the patient states is chronic for her, evidently lift legs off the bed but not hold them up in the air. Otherwise, no other focal neurologic deficit) - Psychiatric Psychiatric exam: Present: normal affect, normal mood - Skin Skin exam: Present: warm, dry, pallor Course Course Narrative: Patient hypotensive on presentation with systolic blood pressure in the 70s. Otherwise, the rest of the vitals within normal limits. Physical exam shows pallor, otherwise no focal neurologic deficits, heart regular rate and rhythm, lungs clear to auscultation, abdomen soft and nontender. Patient is Hemoccult positive. Current concern for GI bleed and anemia. We will CT the patient's head due to report of fall and lightheadedness/dizziness, will also obtain CBC to check hemoglobin, basic blood work, troponin, EKG, chest x-ray. Patient has been typed and screened. 15:41 stool occult blood was positive, but stool was not grossly bloody. However, hemoglobin was 12. Patient began having soft blood pressures that then decreased to systolic of 70s. She became confused. Throughout this entire time, she denied any chest pain, abdominal pain, shortness of breath. She did later admit that she has had several episodes of diarrhea today. A C. difficile lab was ordered. A central line had to be placed for pressor support due to continued blood pressures of 70 systolic and altered mental status.. Patient was started on dopamine and norepinephrine. She was also given 3 more liters of fluid. After central line placement, she is more alert and oriented, pressures have risen to systolic of 100. She does have a decrease in urine output however. Continuing to give fluids. She does have a questionable bilateral lower lobe pneumonia on imaging, otherwise no other major abnormality on CXR, head CT, CT chest/abd/pelvis. Vancomycin and Zosyn were started for possible pneumonia. No clear source for hypotension at this time. Hypotension may be related to the new Cardizem dosing that the patient was started on recently, could be related to multiple episodes of diarrhea and dehydration, could be related to sepsis-type presentation with pneumonia. Patient was admitted to hospitalist, will admit to ICU for further care. Chest X-Ray 05/19/17 23:00 IMPRESSION: Right IJ catheter tip in the area of the SVC. No pneumothorax. D/ / 05/20/2017 07:16:04 Carlin Swann MD / Deborah Khan Interpreting Provider: Carlin Swann MD Head CT 05/20/17 20:51 IMPRESSION: No acute intracranial abnormality. D/ / Jermaine Galol MD / Jermaine Gallo MD Interpreting Provider: Jermaine Gallo MD Chest CT 05/20/17 22:23 IMPRESSION: 1. Coronary artery disease. 2. Bilateral lower lobe atelectasis or pneumonia. 3. Large hiatal hernia. 4. No aortic aneurysm. 5. Diverticulosis without scan evidence for diverticulitis. D/ / Jermaine Gallo MD / Jermaine Gallo MD Interpreting Provider: Jermaine Gallo MD Abdomen/Pelvis CT 05/20/17 22:24 IMPRESSION: 1. Coronary artery disease. 2. Bilateral lower lobe atelectasis or pneumonia. 3. Large hiatal hernia. 4. No aortic aneurysm. 5. Diverticulosis without scan evidence for diverticulitis. D/ / Jermaine Gallo MD / Jermaine Gallo MD Interpreting Provider: Jermaine Gallo MD Vital Signs Temperature 97.8 F 05/19/17 20:44 Pulse Rate 98 05/19/17 20:44 Respiratory Rate 18 05/19/17 20:44 Blood Pressure 72/43 05/19/17 20:44 O2 Sat by Pulse Oximetry 85 05/19/17 20:44 Temperature 99.1 F 05/20/17 16:00 Pulse Rate 108 05/20/17 18:00 Respiratory Rate 20 05/20/17 18:00 Blood Pressure 152/79 05/20/17 18:00 O2 Sat by Pulse Oximetry 97 05/20/17 18:00 Oxygen Delivery Oxygen Delivery Nasal Cannula Procedures - Central Line Placement Right IJ Central Line Inserted*: Yes Central Line Insertion: emergent Procedural Pause: verify patient name and date of , timeout performed per policy, assemble equipment and verify supplies, perform hand hygiene Patient Placed on Monitor/Pulse Ox: Yes During the Procedure: clinician is wearing sterile gloves, cap, mask,& gown during insertion, sterile field and sterile technique are maintained, patient's face is covered with drape or mask and wearing a cap, everyone in room is wearing a mask Central Line Prep: Chlorhexidine scrub, sterile drapes applied Prep the Procedure Site: apply chloraprep to the skin using a back and forth scrubbing motion, apply chloraprep for 30 seconds (upper body), 1-2 min ( femoral sites), allow prep to dry, drape the patient with a full body drape Local Anesthetic: lidocaine 1% Ultrasound Used for Placement: Yes Central Line Lumen Inserted: triple Post Procedure: sutured in place, good blood return, all ports aspirated, flushed, capped, sterile dressing applied, guide wire removed and visualized, dressing is dated Post Procedure X-Ray: tip of catheter in good position, no pneumothorax seen Patient Tolerated Procedure: well Complications: none Name of Clinician Inserting Central Line: Dr. Scott Clinician Assisting/Completing Checklist: Dr. Mallory Medical Decision Making - [facility] Narrative Medical decision making narrative: Patient hypotensive on presentation with systolic blood pressure in the 70s. Otherwise, the rest of the vitals within normal limits. Physical exam shows pallor, otherwise no focal neurologic deficits, heart regular rate and rhythm, lungs clear to auscultation, abdomen soft and nontender. Patient is Hemoccult positive. Current concern for GI bleed and anemia. We will CT the patient's head due to report of fall and lightheadedness/dizziness, will also obtain CBC to check hemoglobin, basic blood work, troponin, EKG, chest x-ray. Patient has been typed and screened. 15:41 stool occult blood was positive, but stool was not grossly bloody. However, hemoglobin was 12. Patient began having soft blood pressures that then decreased to systolic of 70s. She became confused. Throughout this entire time, she denied any chest pain, abdominal pain, shortness of breath. She did later admit that she has had several episodes of diarrhea today. A C. difficile lab was ordered. A central line had to be placed for pressor support due to continued blood pressures of 70 systolic and altered mental status.. Patient was started on dopamine and norepinephrine. She was also given 3 more liters of fluid. After central line placement, she is more alert and oriented, pressures have risen to systolic of 100. She does have a decrease in urine output however. Continuing to give fluids. She does have a questionable bilateral lower lobe pneumonia on imaging, otherwise no other major abnormality on CXR, head CT, CT chest/abd/pelvis. Vancomycin and Zosyn were started for possible pneumonia. No clear source for hypotension at this time. Hypotension may be related to the new Cardizem dosing that the patient was started on recently, could be related to multiple episodes of diarrhea and dehydration, could be related to sepsis-type presentation with pneumonia. Patient was admitted to hospitalist, will admit to ICU for further care. - Medical Records Medical records reviewed: Yes I reviewed the patient's medical records. - Lab Data Lab results reviewed: Yes I reviewed the patient's lab results. Result diagrams: 05/20/17 05:51 05/20/17 05:51 Lab Results 05/19/17 05/19/17 05/19/17 Range/Units 20:57 20:57 20:57 WBC 9.1 (4.3-11.1) K/mcL RBC 4.37 (3.82-4.97) M/mcL Hgb 12.4 (11.5-15.4) g/dL Hct 40.3 (35.3-44.9) % MCV 92.2 (83.0-100.0) fL MCH 28.4 (28.0-33.3) pg MCHC 30.8 L (31.6-35.5) g/dL RDW 14.2 (11.5-14.5) % Plt Count 202 (140-400) K/mcL MPV 9.2 L (9.4-12.4) fL Immature Gran % 0.3 (0-4) % Seg Neutrophils % 83.7 % Lymphocytes % 10.3 % Monocytes % 4.6 % Eosinophils % 0.9 % Basophils % 0.2 % Neutrophils # 7.6 (1.6-8.9) K/mcL Lymphocytes # 0.9 (0.6-4.6) K/mcL Monocytes # 0.4 (0.0-1.3) K/mcL Eosinophils # 0.1 (0.0-0.6) K/mcL Basophils # 0.0 (0.0-0.2) K/mcL PT 10.8 (9.4-12.1) Seconds INR 1.0 APTT 33.9 (26.0-36.0) Seconds Sodium 143 (136-145) mEq/L Potassium 4.5 (3.5-5.1) mEq/L Chloride 111 H (98-107) mEq/L Carbon Dioxide 22 L (23-29) mEq/L BUN 23 (8-23) mg/dL Creatinine 2.19 H (0.60-1.20) mg/dL Est GFR ( Amer) 26 L (> 60) Est GFR (Non-Af Amer) 22 L (> 60) BUN/Creatinine Ratio 11 (6-26) Glucose 70 (70-105) mg/dL Calculated Osmolality 298 (280-300) Calcium 8.8 (8.6-10.3) mg/dL Troponin I < 0.03 (< 0.04) ng/mL Urine Color (Yellow) Urine Clarity (Clear) Urine pH (5.0-8.0) pH Units Ur Specific Earth (1.010-1.025) Urine Protein (Neg-Trace) mg/dL Urine Glucose (UA) (Normal) mg/dL Urine Ketones (Negative) mg/dL Urine Blood (Negative) Urine Nitrite (Negative) Urine Bilirubin (Negative) Urine Urobilinogen (Normal) mg/dL Ur Leukocyte Esterase (Negative) Urine Microscopic RBC (0-3) per hpf Urine Microscopic WBC (0-3) per hpf Calcium Oxalate Crystal Urine Bacteria (None-Few) per hpf Hyaline Casts (None-Few) per lpf Urine Mucus (Few) Ur Culture Indicated? (NO) Blood Type Antibody Screen 05/19/17 05/19/17 Range/Units 20:57 22:43 WBC (4.3-11.1) K/mcL RBC (3.82-4.97) M/mcL Hgb (11.5-15.4) g/dL Hct (35.3-44.9) % MCV (83.0-100.0) fL MCH (28.0-33.3) pg MCHC (31.6-35.5) g/dL RDW (11.5-14.5) % Plt Count (140-400) K/mcL MPV (9.4-12.4) fL Immature Gran % (0-4) % Seg Neutrophils % % Lymphocytes % % Monocytes % % Eosinophils % % Basophils % % Neutrophils # (1.6-8.9) K/mcL Lymphocytes # (0.6-4.6) K/mcL Monocytes # (0.0-1.3) K/mcL Eosinophils # (0.0-0.6) K/mcL Basophils # (0.0-0.2) K/mcL PT (9.4-12.1) Seconds INR APTT (26.0-36.0) Seconds Sodium (136-145) mEq/L Potassium (3.5-5.1) mEq/L Chloride (98-107) mEq/L Carbon Dioxide (23-29) mEq/L BUN (8-23) mg/dL Creatinine (0.60-1.20) mg/dL Est GFR ( Amer) (> 60) Est GFR (Non-Af Amer) (> 60) BUN/Creatinine Ratio (6-26) Glucose (70-105) mg/dL Calculated Osmolality (280-300) Calcium (8.6-10.3) mg/dL Troponin I (< 0.04) ng/mL Urine Color Dark Yellow (Yellow) Urine Clarity Cloudy A (Clear) Urine pH 5.0 (5.0-8.0) pH Units Ur Specific Earth 1.024 (1.010-1.025) Urine Protein Trace (Neg-Trace) mg/dL Urine Glucose (UA) Normal (Normal) mg/dL Urine Ketones Trace H (Negative) mg/dL Urine Blood Negative (Negative) Urine Nitrite Negative (Negative) Urine Bilirubin Small H (Negative) Urine Urobilinogen Normal (Normal) mg/dL Ur Leukocyte Esterase Small H (Negative) Urine Microscopic RBC 0-3 (0-3) per hpf Urine Microscopic WBC 0-3 (0-3) per hpf Calcium Oxalate Crystal Present Urine Bacteria Few (None-Few) per hpf Hyaline Casts Few (None-Few) per lpf Urine Mucus Few (Few) Ur Culture Indicated? YES A (NO) Blood Type A NEGATIVE Antibody Screen NEGATIVE - Radiology Data Radiology results reviewed: Yes I reviewed the patient's radiology results. Chest X-Ray 05/19/17 23:00 IMPRESSION: Right IJ catheter tip in the area of the SVC. No pneumothorax. D/ / Carlin Swann MD / Carlin Swann MD Interpreting Provider: Carlin Swann MD Head CT 05/20/17 20:51 IMPRESSION: No acute intracranial abnormality. D/ / Jermaine Gallo MD / Jermaine Gallo MD Interpreting Provider: Jermaine Gallo MD Chest CT 05/20/17 22:23 IMPRESSION: 1. Coronary artery disease. 2. Bilateral lower lobe atelectasis or pneumonia. 3. Large hiatal hernia. 4. No aortic aneurysm. 5. Diverticulosis without scan evidence for diverticulitis. D/ / Jermaine Gallo MD / Jermaine Gallo MD Interpreting Provider: Jermaine Gallo MD Abdomen/Pelvis CT 05/20/17 22:24 IMPRESSION: 1. Coronary artery disease. 2. Bilateral lower lobe atelectasis or pneumonia. 3. Large hiatal hernia. 4. No aortic aneurysm. 5. Diverticulosis without scan evidence for diverticulitis. D/ / Jermaine Gallo MD / Jermaine Gallo MD Interpreting Provider: Jermaine Gallo MD Critical Care Time Critical Care Time: Yes Total Critical Care Time: 60 Attestation: Critical care performed: Time is exclusive of separately billable procedures. Time includes: direct patient care, patient reassessment, coordination of patient care, interpretation of data (laboratory data, radiology data, and respiratory data), review of patient's medical records, medical consultation and documentation of patient care. Procedures included in critical care time: Procedures excluded from critical care time: Right IJ central line placement S.B.A.R. - S.B.A.R. Situation: Demographics, MOA Background: Presenting Complaint, Relevant PMH, Meds, & Allergies Assessment: Vital Signs, Course and respsone to treatment, Exam Concerns, Patient/Family Expectation, Pertinant Lab Results, Outstanding Labs Recommendation: Barrier(s) to disposition, Recommendation based on pending studies, treatments, or consults S.B.A.R. Report Given to: Dr. Brunson Attestation Statement - Attestation Attestation: I, Curtis Mallory MD, personally evaluated this patient and discussed their management with the resident physician. I reviewed the resident's note and agree with the documented findings, medical decision making, and plan of care. 76-year-old female referred [facility] a local [facility] for evaluation of hypotension. The also reported some decreased mental status however. The emergency department the patient is awake and alert and answers questions appropriately. She was just started on Cardizem 2 days ago for atrial fibrillation and was already on metoprolol and lisinopril. Patient denies being ill. She denies any chest pain. She does admit to some mild shortness of breath. No cough no fever. She denies abdominal pain. No nausea or vomiting. After arrival here the emergency department the patient complained that her bowels needed to move she did have diarrhea which was light brownish yellow in color and was not foul smelling. It was Hemoccult positive. On examination patient is a well-developed well-nourished elderly female in no acute distress. She is alert and answers questions appropriately. No cyanosis or diaphoresis. She does appear very pale. Mucous membranes are moist. Neck is supple with no meningismus. Chest is nontender to palpation. Breath sounds are equal bilaterally with no rales or wheezes noted. Heart regular rate and rhythm. Abdomen is soft and nontender with normal bowel sounds. Pedal edema. No gross focal neurological deficits. Patient remained hypotensive after fluid bolus. She was started on dopamine per peripheral IV and remained hypotensive. Patient seemed to become more confused and less responsive. A right IJ central line was placed by Dr. Scott without difficulty under my supervision. Placement confirmed by x-ray. She was then started on Levophed infusion in addition to the dopamine. A No catheter was placed with minimal urine output. She received additional IV fluids. She did have improvement in her blood pressures with this treatment but remains borderline hypotensive. Labs reviewed. Unremarkable other than acute kidney injury with creatinine of 2.19. Chest x-ray shows: No significant change. No acute process. Low lung volume study with minimal bibasilar atelectasis. Head CT showed no acute intracranial abnormality. CT of the chest abdomen pelvis shows: 1. Coronary artery disease. 2. Bilateral lower lobe atelectasis or pneumonia. 3. Large hiatal hernia. 4. No aortic aneurysm. 5. Diverticulosis without scan evidence for diverticulitis. The hospitalist, Dr. Brunson, was consulted and accepted admission of the patient.
[2017-05-19] MEDS: 0.9 % Sodium Chloride 1,000 ML IVC SCH ×2 (20:57→21:12)
[2017-05-19 21:15] LABS: Basophils % 0.2 %; Eosinophils # 0.1 K/mcL (0.0-0.6); Eosinophils % 0.9 %; Hematocrit 40.3 % (35.3-44.9); Hemoglobin 12.4 g/dL (11.5-15.4); Immature Granulocytes % 0.3 % (0-4); Lymphocytes # 0.9 K/mcL (0.6-4.6); Lymphocytes % 10.3 %; Mean Corpuscular HGB Conc 30.8 g/dL (31.6-35.5); Mean Corpuscular Hemoglobin 28.4 pg (28.0-33.3); Mean Corpuscular Volume 92.2 fL (83.0-100.0); Mean Platelet Volume 9.2 fL (9.4-12.4); Monocytes # 0.4 K/mcL (0.0-1.3); Monocytes % 4.6 %; Neutrophils # 7.6 K/mcL (1.6-8.9); Platelet Count 202 K/mcL (140-400); Red Blood Count 4.37 M/mcL (3.82-4.97); Red Cell Distribution Width 14.2 % (11.5-14.5); Segmented Neutrophils % 83.7 %
[2017-05-19 21:20] LABS: Activated Partial Thrombo Time 33.9 Seconds (26.0-36.0)
[2017-05-19 21:21] LABS: Prothrombin Time 10.8 Seconds (9.4-12.1)
[2017-05-19 21:38] LABS: BUN/Creatinine Ratio 11 (6-26); Blood Urea Nitrogen 23 mg/dL (8-23); Calcium 8.8 mg/dL (8.6-10.3); Carbon Dioxide 22 mEq/L (23-29); Chloride 111 mEq/L (98-107); Glucose 70 mg/dL (70-105); Osmolality,Calculated 298 (280-300); Potassium 4.5 mEq/L (3.5-5.1); Sodium 143 mEq/L (136-145); Troponin I < 0.03 ng/mL (< 0.04); eGFR For African Americans 26 (> 60); eGFR For Non-African Americans 22 (> 60)
[2017-05-19] MEDS ORDERED: 0.9 % Sodium Chloride 1,000 ML IVC ONE (22:22)
[2017-05-19 23:06] LABS: Bilirubin,Urine Small (Negative); Blood,Urine Negative (Negative); Clarity,Urine Cloudy (Clear); Color,Urine Dark Yellow (Yellow); Glucose,Urine (UA) Normal (Normal); Ketones,Urine Trace mg/dL (Negative); Leukocyte Esterase,Urine Small (Negative); Nitrite,Urine Negative (Negative); Protein,Urine Trace mg/dL (Neg-Trace); Specific Gravity,Urine 1.024 (1.010-1.025); Urobilinogen,Urine Normal (Normal)
[2017-05-19 23:13] LABS: Calcium Oxalate Crystals,Urine Present
[2017-05-19 23:14] LABS: Bacteria,Urine Few per hpf (None-Few); Hyaline Casts,Urine Few per lpf (None-Few); Mucus,Urine Few (Few); RBC,Urine 0-3 per hpf (0-3); WBC,Urine 0-3 per hpf (0-3)
[2017-05-19] MEDS: Norepinephrine 4 MG in D5% in Water 250 ML IVC SCH (23:38)
[2017-05-20] MEDS ORDERED: Piperacillin/Tazobactam 3.375 GM in 0.9 % Sodium Chloride Mini Bag 100 ML IVPB ONE (03:36)
[2017-05-20] MEDS ORDERED: Acetaminophen 325 MG TABLET PO PRN ×2 (04:26→08:16)
[2017-05-20] MEDS ORDERED: Naloxone 0.4 MG/ML INJ IVP PRN (04:26)
--- NOTE | 2017-05-20 04:43 | Internal Med History&Physical ---
Date of Encounter: 05/20/17 Time of Encounter: 04:00 Assessment and Plan (1) Acute renal failure Current visit: Yes Status: Acute Patient has hypotension. Decreased urine output. Increase the creatinine from baseline. Consider acute renal failure. Etiology is undetermined. - Continue maintain adequate blood pressure with pressors. Continue IV fluid. - Avoid nephrotoxic medications - Closely follow-up renal function - US renal to rule out obstruction. Qualifiers: Acute renal failure type: unspecified Qualified Code(s): N17.9 - Acute kidney failure, unspecified (2) Paroxysmal A-fib Current visit: Yes Status: Acute Sinus rhythm now. Patient is not on any anticoagulation at home except baby ASA. We will hold aspirin because of positive guaiac test (3) UTI (urinary tract infection) Current visit: Yes Status: Acute Patient was placed on on Vanco and Zosyn for HCAP, which will also cover UTI. Follow-up urine culture Qualifiers: Urinary tract infection type: acute cystitis Hematuria presence: without hematuria Qualified Code(s): N30.00 - Acute cystitis without hematuria (4) Hypotension Current visit: Yes Status: Acute Patient has low blood pressure upon arrival. Patient is on multiple hypertension medications. Chest CT shows pneumonia. - Medication effect versus septic shock - Patient was placed on central line and started depressor by ER - Continue IV fluid - Follow-up lactic acid level - Continue antibiotic - Hold all the hypertension medications - Place patient in the ICU and closely monitor patient. Critical care time 35 minutes including history, physical, old chart review, and medical decision making Qualifiers: Hypotension type: unspecified hypotension type Qualified Code(s): I95.9 - Hypotension, unspecified (5) Pneumonia Current visit: No Status: Acute Patient is from alf. We will treat patient with Vanco and Zosyn to cover HCAP. Qualifiers: Pneumonia type: due to unspecified organism Laterality: bilateral Lung location: lower lobe of lung Qualified Code(s): J18.1 - Lobar pneumonia, unspecified organism (6) DVT prophylaxis Current visit: No Status: Acute EPCD, no anticoagulation because of positive guaiac test (7) Chest pain Current visit: Yes Status: Acute Patient initially complaint chest pain. EKG unremarkable. - Place patient on continuous cardiac monitoring. - Track 3 sets of troponin, first of troponin negative - Echocardiogram Qualifiers: Qualified Code(s): R07.9 - Chest pain, unspecified (8) Guaiac positive stools Current visit: Yes Status: Acute ER doctor had bedside guaiac test, which shows positive. However, patient has stable hemoglobin. Patient has no massive rectal bleeding or coffee ground emesis. Less likely GI bleed. - We will place patient on nothing by mouth, IV fluid, IV PPI - Closely monitor H&H. Consider GI consult if H&H keep dropping. Internal Medicine - H&P: HPI Chief complaint: Low blood pressure Admitted From: Long-term Nursing Facility Plans for Post Hospital Care: Transfer [facility] History of present illness: Ms. Tolliver is a 76 year old female with history of hypertension, dementia, paroxysmal A. fib, send the from alf initially for chest pain. When patient to get to ER, she was found hypotension with systolic blood pressure at 70s. Patient was given IV fluid. Her BP is not improved with fluid challenging. Patient was found guaiac positive but hemoglobin is generally stable. Patient has no fever. Patient is demented but awake alert, looks comfortably laying on bed. Denies chest pain or shortness of breath. Patient has hypertension and on amlodipine and lisinopril, she was recently added Cardizem because of A. fib RVR. Finally, ER physician placed central line and started Levophed and dopamine to maintain the blood pressure. CT chest suspect pneumonia. UA suspect UTI. Patient has decreased urine output and elevated creatinine level from baseline. Patient was admitted to ICU because that she needed pressors to maintain the blood pressure, highly suspect septic shock from pneumonia or UTI. Cannot discussed CODE STATUS with patient as patient has dementia. Per alf transfer paper, patient is full code. Past Med Surg Social Fam HX - Past Medical History Medical history: fibromyalgia, hypertension Psychiatric history: anxiety - Past Surgical History Surgical History: hip replacement, other - Social History Smoking Status: Never smoker Smokeless Tobacco Status: No Alcohol use: none Drug use: none - Family History Mother Living Status: Father Living Status: Internal Medicine - H&P: Meds Acetaminophen [Tylenol Arthritis] 650 mg PO Q8H PRN 03/09/17 [History] Amitriptyline [Elavil] 25 mg PO HS 03/09/17 [History] Celecoxib [Celebrex] 200 mg PO DAILY 03/09/17 [History] Cholecalciferol (Vitamin D3) [Vitamin D3] 5,000 unit PO DAILY 03/09/17 [History] Duloxetine HCl [Cymbalta] 60 mg PO HS 03/09/17 [History] Gabapentin [Neurontin] 100 mg PO TID 03/09/17 [History] Lisinopril [Zestril] 20 mg PO DAILY 03/09/17 [History] Loperamide HCl [Anti-Diarrheal] 2 mg PO Q4H PRN 03/09/17 [History] Mag Hydrox/Al Hydrox/Simeth [Antacid Suspension] 30 ml PO Q4H PRN 03/09/17 [ History] Metoprolol Succinate 25 mg PO DAILY 03/09/17 [History] Mirtazapine 7.5 mg PO HS 03/09/17 [History] Omeprazole [PriLOSEC] 20 mg PO DAILY 03/09/17 [History] Venlafaxine HCl [Venlafaxine HCl ER] 37.5 mg PO BID 03/09/17 [History] Vitamin B Complex [B Complex] 1 each PO DAILY 03/09/17 [History] amLODIPine [Norvasc] 5 mg PO DAILY 03/09/17 [History] traZODone [TraZODone] 75 mg PO HS 03/09/17 [History] Amoxicillin/Clavulanate [Augmentin] 875 mg PO BIDWM 1 Days #2 tablet 03/16/17 [ Rx] Aspirin 81 mg PO DAILY tab.chew 03/16/17 [Rx] 3 Allergy/AdvReac Type Severity Reaction Status Date / Time diltiazem [From Cardizem] Allergy Agitated Verified 03/09/17 12:28 morphine AdvReac Agitated Verified 04/18/15 11:05 pregabalin [From Lyrica] AdvReac Agitated Verified 04/18/15 11:05 All Systems PM: A 10-system review of systems was performed and is negative for pertinent findings except as documented above in the HPI. - Constitutional Vitals: Temp Pulse Resp BP Pulse Ox 97.8 F 90 20 98/53 94 05/19/17 20:44 05/20/17 04:08 05/20/17 04:08 05/20/17 04:08 05/20/17 04:08 General appearance: Present: A&O X 1, no acute distress, answers questions appropriately - Head Head exam: Present: atraumatic, normocephalic - Eye Eye exam: Present: PERRL, conjuntiva pink, sclera anicteric Pupils: Present: PERRL - Neck Neck exam general surgery: Present: supple, trachea midline. Absent: lymphadenopathy - Respiratory Respiratory exam: Present: CTAB. Absent: accessory muscle use, rales, rhonchi, wheezes - Cardiovascular Cardiovascular exam: Present: RRR, +S1, +S2. Absent: diastolic murmur, gallop, rubs, systolic murmur - GI/Abdominal GI/Abdominal exam: Present: normal bowel sounds, soft, no peritoneal signs. Absent: distended, tenderness - Extremities Exam Extremities exam: Present: warm, radial pulses palpable and symmetrical. Absent : calf tenderness, cyanotic, pedal edema - Neurological Exam Neurological exam: Present: CN II-XII intact, oriented X3, no focal deficits. Absent: pronater drift, facial droop, speech deficit - Skin Skin exam: Present: dry, intact Internal Med - H&P Results - Labs CBC & Chem 7: 05/19/17 20:57 05/19/17 20:57 - EKG Data -: EKG Interpreted by Myself EKG shows normal: sinus rhythm Rate: normal - Impressions ITS Impressions Head CT 05/20/17 20:51 IMPRESSION: No acute intracranial abnormality. D/ / Jermaine Gallo MD / Jermaine Gallo MD Interpreting Provider: Jermaine Gallo MD Chest CT 05/20/17 22:23 IMPRESSION: 1. Coronary artery disease. 2. Bilateral lower lobe atelectasis or pneumonia. 3. Large hiatal hernia. 4. No aortic aneurysm. 5. Diverticulosis without scan evidence for diverticulitis. D/ / Jermaine Gallo MD / Jermaine Gallo MD Interpreting Provider: Jermaine Gallo MD Abdomen/Pelvis CT 03/17/18 22:24
[2017-05-20] MEDS: 0.9 % Sodium Chloride 1,000 ML IVC SCH ×4 (05:27→11:21)
[2017-05-20] MEDS: Pantoprazole 40 MG VIAL IVP SCH ×2 (05:51→17:31)
[2017-05-20 05:58] LABS: Basophils % 0.1 %; Eosinophils % 0.1 %; Hematocrit 33.2 % (35.3-44.9); Hemoglobin 10.2 g/dL (11.5-15.4); Immature Granulocytes % 0.3 % (0-4); Immature Platelets 1.6 % (1.1-6.1); Lymphocytes # 1.1 K/mcL (0.6-4.6); Lymphocytes % 11.6 %; Mean Corpuscular HGB Conc 30.7 g/dL (31.6-35.5); Mean Corpuscular Hemoglobin 28.4 pg (28.0-33.3); Mean Corpuscular Volume 92.5 fL (83.0-100.0); Mean Platelet Volume 9.4 fL (9.4-12.4); Monocytes # 0.7 K/mcL (0.0-1.3); Monocytes % 7.5 %; Neutrophils # 7.9 K/mcL (1.6-8.9); Platelet Count 159 K/mcL (140-400); Red Blood Count 3.59 M/mcL (3.82-4.97); Red Cell Distribution Width 13.7 % (11.5-14.5); Segmented Neutrophils % 80.4 %
[2017-05-20] MEDS ORDERED: *HR* Heparin 5,000 UNIT/ML VIAL SQ SCH (06:00)
[2017-05-20 06:23] LABS: BUN/Creatinine Ratio 15 (6-26); Blood Urea Nitrogen 23 mg/dL (8-23); Calcium 7.5 mg/dL (8.6-10.3); Carbon Dioxide 19 mEq/L (23-29); Chloride 117 mEq/L (98-107); Glucose 167 mg/dL (70-105); Osmolality,Calculated 299 (280-300); Potassium 4.8 mEq/L (3.5-5.1); Sodium 141 mEq/L (136-145); eGFR For African Americans 38 (> 60); eGFR For Non-African Americans 32 (> 60)
[2017-05-20 07:05] LABS: Troponin I < 0.03 ng/mL (< 0.04)
--- NOTE | 2017-05-20 08:43 | Pulmonology Progress Note ---
<Ranjit Brewster - Last Filed: 05/20/17 15:14> Date of Encounter: 05/20/17 Time of Encounter: 09:30 Assessment and Plan (1) Hypotension Current Visit: Yes Status: Acute Hypotensive in ED, refractory to initial fluid resuscitation; CVC placed and pressors given regaining control of BP -- currently normotensive without pressors Patient is on multiple antihypertensives including metoprolol succinate, lisinopril, and diltiazem (which is new to her) -- antihypertensives are being held at this time Continuing to monitor BPs and telemetry Qualifiers: Hypotension type: unspecified hypotension type Qualified Code(s): I95.9 - Hypotension, unspecified (2) Chest pain Current Visit: Yes Status: Acute No pain at present Troponins have been negative thus far Qualifiers: Chest pain type: unspecified Qualified Code(s): R07.9 - Chest pain, unspecified (3) Pneumonia Current Visit: Yes Status: Suspected Possible PNA - will continue to treat presumptively for the time being -- Abx (Vanco & Zosyn) -- Supplement oxygen per need -- PRN Albuterol nebs; no wheeze on exam, so will defer any steroids or scheduled neb tx CXR: No significant change. No acute process. Low lung volume study with minimal bibasilar atelectasis. CT-Chest: 1. Coronary artery disease. 2. Bilateral lower lobe atelectasis or pneumonia. 3. Large hiatal hernia. 4. No aortic aneurysm. Qualifiers: Pneumonia type: due to unspecified organism Laterality: bilateral Lung location: lower lobe of lung Qualified Code(s): J18.1 - Lobar pneumonia, unspecified organism (4) UTI (urinary tract infection) Current Visit: Yes Status: Suspected Antibiotic coverage per pneumonia plan Qualifiers: Urinary tract infection type: acute cystitis Hematuria presence: without hematuria Qualified Code(s): N30.00 - Acute cystitis without hematuria (5) Acute renal failure Current Visit: Yes Status: Acute Improving renal function -- creat 1.58 today down from prior 2.19 -- continue to monitor daily Qualifiers: Acute renal failure type: unspecified Qualified Code(s): N17.9 - Acute kidney failure, unspecified (6) Guaiac positive stools Current Visit: Yes Status: Acute no grossly bloody stools trending hemoglobins (7) Paroxysmal A-fib Current Visit: Yes Status: Acute regular rhythm at this time on telemetry (8) Diarrhea Current Visit: Yes Status: Acute several episodes of diarrhea over last few days -- C. diff. test ordered pending stool sample Qualifiers: Diarrhea type: unspecified type Qualified Code(s): R19.7 - Diarrhea, unspecified (9) DVT prophylaxis Current Visit: No Status: Acute EPCD holding rx prophylaxis due to concern of lower GI bleed Subjective Principal diagnosis: AMS, Chest Pain, Hypotension Interval history: Resting comfortably in bed. Saturating well on nasal cannula. Requests food. Per nursing, was pulling at IV lines, so soft restraints were placed. Patient states is comfortable and asymptomatic at this time. BPs are normal without pressor support. No other concerns or events per patient or nursing. Objective PUL Vital signs: Temp 97.3 F L 05/20/17 08:17 Pulse 84 05/20/17 07:00 Resp 16 05/20/17 07:00 BP 118/62 05/20/17 07:00 Pulse Ox 98 05/20/17 07:00 CONSTITUTIONAL: alert and responsive, restful and comfortable; restraints in place due to pulling at IV lines HEAD: Normocephalic; atraumatic. EYES: PERRL, no scleral icterus, no drainage, no conjunctival injection NOSE: nasal cannula in place Oropharynx: pink/moist, RESP: NRD without use of accessory musculature, CTA b/l with no wheezes/rales/ rhonchi CARD: Regular rhythm, without murmurs, rubs, or gallop ABD: grossly normal, soft, non-tender SKIN: normal appearance, no pallor/diaphoresis,mottling,jaundice,cyanosis EXT: Rad pulses 2+ and symmetrical; no lateralizing edema; no other lesions seen Results - Laboratory Findings CBC and BMP: 05/20/17 05:51 05/20/17 05:51 PT/INR, D-dimer PT 10.8 Seconds (9.4-12.1) 05/19/17 20:57 Abnormal lab findings: Abnormal lab results RBC 3.59 M/mcL (3.82-4.97) L 05/20/17 05:51 Hgb 10.2 g/dL (11.5-15.4) L D 05/20/17 05:51 Hct 33.2 % (35.3-44.9) L 05/20/17 05:51 MCHC 30.7 g/dL (31.6-35.5) L 05/20/17 05:51 Chloride 117 mEq/L (98-107) H 05/20/17 05:51 Carbon Dioxide 19 mEq/L (23-29) L 05/20/17 05:51 Creatinine 1.58 mg/dL (0.60-1.20) H 05/20/17 05:51 Est GFR ( Amer) 38 (> 60) L 05/20/17 05:51 Est GFR (Non-Af Amer) 32 (> 60) L 05/20/17 05:51 Glucose 167 mg/dL (70-105) H 05/20/17 05:51 Calcium 7.5 mg/dL (8.6-10.3) L 05/20/17 05:51 Urine Clarity Cloudy (Clear) A 05/19/17 22:43 Urine Ketones Trace mg/dL (Negative) H 05/19/17 22:43 Urine Bilirubin Small (Negative) H 05/19/17 22:43 Ur Leukocyte Esterase Small (Negative) H 05/19/17 22:43 Ur Culture Indicated? YES (NO) A 05/19/17 22:43 - Clinical Findings Intake & Output: Intake & Output 05/19/17 05/20/17 05/20/17 23:59 07:59 15:59 Intake Total 470 / 470 Output Total 175 / 175 200 / 200 Balance 295 / 295 -200 / -200 Weight 63.3 kg Consult Discharge Plan - Plan Referrals: Chris Lazaro MD [Primary Care Provider] - <Jessy White - Last Filed: 05/20/17 21:50> Date of Encounter: 05/20/17 Objective PUL Vital signs: Last Vital Signs Temp 97.3 F L 05/20/17 10:00 Pulse 92 05/20/17 11:00 Resp 18 05/20/17 11:00 BP 114/72 05/20/17 11:00 Pulse Ox 97 05/20/17 11:00 Results - Laboratory Findings CBC and BMP: 05/20/17 05:51 05/20/17 05:51 PT/INR, D-dimer PT 10.8 Seconds (9.4-12.1) 05/19/17 20:57 Abnormal lab findings: Abnormal lab results RBC 3.59 M/mcL (3.82-4.97) L 05/20/17 05:51 Hgb 10.2 g/dL (11.5-15.4) L D 05/20/17 05:51 Hct 33.2 % (35.3-44.9) L 05/20/17 05:51 MCHC 30.7 g/dL (31.6-35.5) L 05/20/17 05:51 Chloride 117 mEq/L (98-107) H 05/20/17 05:51 Carbon Dioxide 19 mEq/L (23-29) L 05/20/17 05:51 Creatinine 1.58 mg/dL (0.60-1.20) H 05/20/17 05:51 Est GFR ( Amer) 38 (> 60) L 05/20/17 05:51 Est GFR (Non-Af Amer) 32 (> 60) L 05/20/17 05:51 Glucose 167 mg/dL (70-105) H 05/20/17 05:51 Calcium 7.5 mg/dL (8.6-10.3) L 05/20/17 05:51 Urine Clarity Cloudy (Clear) A 05/19/17 22:43 Urine Ketones Trace mg/dL (Negative) H 05/19/17 22:43 Urine Bilirubin Small (Negative) H 05/19/17 22:43 Ur Leukocyte Esterase Small (Negative) H 05/19/17 22:43 Ur Culture Indicated? YES (NO) A 05/19/17 22:43 - Clinical Findings Intake & Output: Intake & Output 05/19/17 05/20/17 05/20/17 23:59 07:59 15:59 Intake Total 470 / 470 Output Total 175 / 175 200 / 200 Balance 295 / 295 -200 / -200 Weight 63.3 kg - Attending Attestation This is a consult note, not a progress note. Consulting physician Dr. Geovanna Orantes Date of consult 05/20/2017 Reason for consult: Critical care management Patient was transferred from halfway and not able to get a reliable history because of mental status change. I examined this patient and my medical decision-making was reviewed with the Resident Physician. I agree with the documented findings, disposition and treatment plan as described except to the extent set forth below. Patient seen and examined. Labs, radiology, chart personally reviewed. 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 To hold medication at this time Pulmonary: Acceptable oxygenation and ventilation and suspicion for pneumonia and she is being treated with broad-spectrum antibiotics to follow-up on the cultures and sensitivities Cardiovascular: Blood pressure is stable at this time and to continue IV fluid. To check echocardiogram and troponin GI: Nutrition per dietary and GI prophylaxis per routine Heme: DVT prophylaxis per routine ID: Continue antibiotics and plan to de-escalation. Possible mental status change from sepsis and fluid was given and also lactic acid Renal; urine out put and renal funtion reviewed Endorcine: blood glucose is monitored Lines: all lines checked and no evidence of infections Skin: skin care to prevent pressure ulcers per nursing routine care To monitor patient in ICU for now
[2017-05-20] MEDS: Aspirin 81 MG TAB.CHEW PO SCH (10:28)
[2017-05-20] MEDS: Venlafaxine XR (24 HR) 37.5 MG CAP.ER.24H PO SCH ×2 (10:28→21:10)
[2017-05-20] MEDS: Piperacillin/Tazobactam 3.375 GM in 0.9 % Sodium Chloride Mini Bag 100 ML IVPB SCH ×2 (11:21→21:09)
[2017-05-20] MEDS ORDERED: traZODone 50 MG TABLET PO SCH (21:00)
[2017-05-20] MEDS: Norepinephrine 4 MG in D5% in Water 250 ML IVC SCH (21:11)
[2017-05-21] MEDS ORDERED: Haloperidol Lactate 5 MG/ML VIAL IVP ONE (00:17)
[2017-05-21] MEDS ORDERED: *HR* LORazepam 2 MG/ML VIAL IVP ONE (02:37)
[2017-05-21] MEDS: Piperacillin/Tazobactam 3.375 GM in 0.9 % Sodium Chloride Mini Bag 100 ML IVPB SCH ×3 (03:18→20:43)
[2017-05-21 03:45] LABS: Eosinophils # 0.1 K/mcL (0.0-0.6); Eosinophils % 1.2 %; Hematocrit 31.7 % (35.3-44.9); Hemoglobin 9.9 g/dL (11.5-15.4); Immature Granulocytes % 0.8 % (0-4); Lymphocytes # 0.7 K/mcL (0.6-4.6); Lymphocytes % 13.5 %; Mean Corpuscular HGB Conc 31.2 g/dL (31.6-35.5); Mean Corpuscular Hemoglobin 28.3 pg (28.0-33.3); Mean Corpuscular Volume 90.6 fL (83.0-100.0); Mean Platelet Volume 9.8 fL (9.4-12.4); Monocytes # 0.3 K/mcL (0.0-1.3); Monocytes % 5.6 %; Neutrophils # 4.1 K/mcL (1.6-8.9); Platelet Count 108 K/mcL (140-400); Red Cell Distribution Width 13.7 % (11.5-14.5); Segmented Neutrophils % 78.9 %
[2017-05-21 03:58] LABS: Calcium 8.2 mg/dL (8.6-10.3); Potassium 4.1 mEq/L (3.5-5.1)
[2017-05-21] MEDS: Pantoprazole 40 MG VIAL IVP SCH ×2 (05:33→17:19)
--- NOTE | 2017-05-21 08:07 | Pulmonology Progress Note ---
<ChristopherJessy M - Last Filed: 05/21/17 08:56> Date of Encounter: 05/21/17 Objective PUL Vital signs: Last Vital Signs Temp 99.0 F 05/21/17 08:04 Pulse 96 05/21/17 07:00 Resp 13 05/21/17 07:00 BP 162/82 05/21/17 07:00 Pulse Ox 99 05/21/17 07:00 Results - Laboratory Findings CBC and BMP: 05/21/17 03:15 05/21/17 03:15 PT/INR, D-dimer PT 10.8 Seconds (9.4-12.1) 05/19/17 20:57 Abnormal lab findings: Abnormal lab results RBC 3.50 M/mcL (3.82-4.97) L 05/21/17 03:15 Hgb 9.9 g/dL (11.5-15.4) L 05/21/17 03:15 Hct 31.7 % (35.3-44.9) L 05/21/17 03:15 MCHC 31.2 g/dL (31.6-35.5) L 05/21/17 03:15 Plt Count 108 K/mcL (140-400) L 05/21/17 03:15 Chloride 118 mEq/L (98-107) H 05/21/17 03:15 Carbon Dioxide 20 mEq/L (23-29) L 05/21/17 03:15 Est GFR ( Amer) 53 (> 60) L 05/21/17 03:15 Est GFR (Non-Af Amer) 44 (> 60) L 05/21/17 03:15 Glucose 108 mg/dL (70-105) H 05/21/17 03:15 POC Glucose 144 (58-89) H 05/20/17 05:00 Calcium 8.2 mg/dL (8.6-10.3) L 05/21/17 03:15 Urine Clarity Cloudy (Clear) A 05/19/17 22:43 Urine Ketones Trace mg/dL (Negative) H 05/19/17 22:43 Urine Bilirubin Small (Negative) H 05/19/17 22:43 Ur Leukocyte Esterase Small (Negative) H 05/19/17 22:43 Ur Culture Indicated? YES (NO) A 05/19/17 22:43 - Clinical Findings Intake & Output: Intake & Output 05/20/17 05/21/17 05/21/17 23:59 07:59 15:59 Intake Total 1350 / 1350 Output Total 750 / 750 350 / 350 400 / 400 Balance 600 / 600 -350 / -350 -400 / -400 Weight 62.8 kg Consult Discharge Plan - Plan Referrals: Chris Lazaro MD [Primary Care Provider] - - Attending Attestation I examined this patient and my medical decision-making was reviewed with the Resident Physician. I agree with the documented findings, disposition and treatment plan as described except to the extent set forth below. Patient seen and examined. Labs, radiology, chart personally reviewed. 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 Also it will be important to have a family member to discuss CODE STATUS. Pulmonary: Acceptable oxygenation and ventilation Cardiovascular: Hypertension could be related to agitation and hopefully resuming Her medication to help. GI: Nutrition per dietary and GI prophylaxis per routine Heme: DVT prophylaxis per routine ID: Continue antibiotics and plan to de-escalation Renal; urine out put and renal funtion reviewed Endorcine: blood glucose is monitored Lines: all lines checked and no evidence of infections Skin: skin care to prevent pressure ulcers per nursing routine care Overall prognosis is poor <Marycruz Mitchell - Last Filed: 05/21/17 10:05> Date of Encounter: 05/21/17 Time of Encounter: 09:22 Assessment and Plan (1) Hypotension Current Visit: Yes Status: Acute Hypotensive in ED, refractory to initial fluid resuscitation; CVC placed and pressors given initially. Possible cause being polypharmacy as patient recently started on Cardizem along with metoprolol and lisinopril. Currently patient has been weaned from pressors and is hypertensive with a max of 192/127. Plan: - restart metoprolol ER 25mg daily - Hydralazine 10 mg every 6 hours prn Qualifiers: Hypotension type: unspecified hypotension type Qualified Code(s): I95.9 - Hypotension, unspecified (2) Pneumonia Current Visit: Yes Status: Suspected Possible pneumonia. CT scan of chest showed bilateral lower lobe atelectasis or pneumonia. Patient's white blood cell count is within normal limits and has been afebrile. Currently on room air and satting well. Plan: - currently on Vanco and Zosyn, can probably de-escalate to Levoquin - PRN Gunjanbs Qualifiers: Pneumonia type: due to unspecified organism Laterality: bilateral Lung location: lower lobe of lung Qualified Code(s): J18.1 - Lobar pneumonia, unspecified organism (3) Dementia Current Visit: Yes Status: Acute Currently holding home medications but will possibly restart some tomorrow. Patient's home medications include: venlafaxine, trazodone, mirtazapine, Cymbalta, amitriptyline. Patient is at high risk for serotonin syndrome. Patient is in soft restraints due to trying to pull out IV access. Qualifiers: Dementia type: unspecified type Dementia behavioral disturbance: with behavioral disturbance Qualified Code(s): F03.91 - Unspecified dementia with behavioral disturbance (4) Paroxysmal A-fib Current Visit: Yes Status: Acute Currently in afib. Rate elevated. Will restart home dose of metoprolol 25mg daily. Patient initially presented with chest pain, troponins negative 3. (5) Diarrhea Current Visit: Yes Status: Acute C. difficile PCR pending. Patient's home medication list includes Loperamide therefore diarrhea might be chronic. Patient did have a positive guaiac stool. Patient's home medications include aspirin, Celecoxib, and Omeprazole. Hemoglobin stable from yesterday. Qualifiers: Diarrhea type: unspecified type Qualified Code(s): R19.7 - Diarrhea, unspecified (6) DVT prophylaxis Current Visit: No Status: Acute EPCD, holding rx prophylaxis due to concern of lower GI bleed (7) Acute kidney injury Current Visit: No Status: Resolved Creatinine within normal limits this morning. Subjective Principal diagnosis: AMS, Chest Pain, Hypotension Interval history: 76-year-old female past medical history of hypertension, dementia, and paroxysmal A. fib presented from the correction for chest pain and is found to be hypotensive with a systolic BP in the 70s and initially refractory to fluid resuscitation. Today patient has no complaints. Patient denies dizziness, nausea, vomiting, chest pain, shortness of breath. Patient does not know where she is at and why she is in the hospital. Objective PUL Vital signs: Last Vital Signs Temp 99.0 F 05/21/17 08:04 Pulse 96 05/21/17 07:00 Resp 13 05/21/17 07:00 BP 162/82 05/21/17 07:00 Pulse Ox 99 05/21/17 07:00 Constitutional: Alert, in no acute distress, A&O x1 oriented to name, Head: Normocephalic, atraumatic Heart: tachycardic, irregular rhythm , no murmurs Lungs: Clear to auscultation, no wheezes, rales, or rhonchi breathing RA Abdomen: Soft, nondistended, nontender, bowel sounds present and normal, no guarding or rigidity. Extremities: currently in soft restraints but no cyanosis and strength 5/5 in both UEs, No clubbing, cyanosis, or edema, capillary refill <2sec. Skin: Skin warm and dry, no lesions, no rashes, no jaundice Neurologic: Cranial nerves II through XII grossly intact, no focal deficits, strength 5/5 in all extremities Psych: speech clear, patient answering questions with appropriate responses but unsure of where is and why she is here Results - Laboratory Findings CBC and BMP: 05/21/17 03:15 05/21/17 03:15 PT/INR, D-dimer PT 10.8 Seconds (9.4-12.1) 05/19/17 20:57 Abnormal lab findings: Abnormal lab results RBC 3.50 M/mcL (3.82-4.97) L 05/21/17 03:15 Hgb 9.9 g/dL (11.5-15.4) L 05/21/17 03:15 Hct 31.7 % (35.3-44.9) L 05/21/17 03:15 MCHC 31.2 g/dL (31.6-35.5) L 05/21/17 03:15 Plt Count 108 K/mcL (140-400) L 05/21/17 03:15 Chloride 118 mEq/L (98-107) H 05/21/17 03:15 Carbon Dioxide 20 mEq/L (23-29) L 05/21/17 03:15 Est GFR ( Amer) 53 (> 60) L 05/21/17 03:15 Est GFR (Non-Af Amer) 44 (> 60) L 05/21/17 03:15 Glucose 108 mg/dL (70-105) H 05/21/17 03:15 POC Glucose 144 (58-89) H 05/20/17 05:00 Calcium 8.2 mg/dL (8.6-10.3) L 05/21/17 03:15 Urine Clarity Cloudy (Clear) A 05/19/17 22:43 Urine Ketones Trace mg/dL (Negative) H 05/19/17 22:43 Urine Bilirubin Small (Negative) H 05/19/17 22:43 Ur Leukocyte Esterase Small (Negative) H 05/19/17 22:43 Ur Culture Indicated? YES (NO) A 05/19/17 22:43 - Clinical Findings Intake & Output: Intake & Output 05/20/17 05/21/17 05/21/17 23:59 07:59 15:59 Intake Total 1350 / 1350 Output Total 750 / 750 350 / 350 400 / 400 Balance 600 / 600 -350 / -350 -400 / -400 Weight 62.8 kg
[2017-05-21] MEDS: Aspirin 81 MG TAB.CHEW PO SCH (09:32)
[2017-05-21] MEDS: Metoprolol XL (24 HR) Succ 25 MG TAB.ER.24H PO SCH (09:32)
[2017-05-21] MEDS: Venlafaxine XR (24 HR) 37.5 MG CAP.ER.24H PO SCH ×2 (09:32→20:46)
[2017-05-21] MEDS: Lisinopril 20 MG TABLET PO SCH (11:50)
[2017-05-21] MEDS ORDERED: Ondansetron 4 MG/2 ML VIAL IVP PRN (16:01)
[2017-05-21] MEDS ORDERED: *HR* Labetalol 20 MG/4 ML SYRINGE IVP ONE (16:35)
[2017-05-21] MEDS: Gabapentin 100 MG CAPSULE PO SCH ×2 (17:19→20:48)
[2017-05-21] MEDS: Norepinephrine 4 MG in D5% in Water 250 ML IVC SCH (20:37)
[2017-05-21] MEDS ORDERED: Mirtazapine 15 MG TABLET PO SCH (21:00)
[2017-05-22] MEDS: Piperacillin/Tazobactam 3.375 GM in 0.9 % Sodium Chloride Mini Bag 100 ML IVPB SCH ×4 (03:45→20:43)
[2017-05-22 03:58] LABS: Hematocrit 31.3 % (35.3-44.9); Hemoglobin 9.7 g/dL (11.5-15.4); Immature Platelets 1.6 % (1.1-6.1); Mean Corpuscular Hemoglobin 28.4 pg (28.0-33.3); Mean Corpuscular Volume 91.8 fL (83.0-100.0); Mean Platelet Volume 8.9 fL (9.4-12.4); Red Blood Count 3.41 M/mcL (3.82-4.97); Red Cell Distribution Width 14.2 % (11.5-14.5)
[2017-05-22 04:22] LABS: BUN/Creatinine Ratio 11 (6-26); Blood Urea Nitrogen 11 mg/dL (8-23); Calcium 8.4 mg/dL (8.6-10.3); Carbon Dioxide 25 mEq/L (23-29); Chloride 118 mEq/L (98-107); Glucose 98 mg/dL (70-105); Osmolality,Calculated 301 (280-300); Potassium 4.2 mEq/L (3.5-5.1); Sodium 146 mEq/L (136-145); eGFR For African Americans > 60 (> 60); eGFR For Non-African Americans 55 (> 60)
[2017-05-22] MEDS: Pantoprazole 40 MG VIAL IVP SCH ×2 (06:04→18:10)
[2017-05-22] MEDS ORDERED: Metoprolol XL (24 HR) Succ 25 MG TAB.ER.24H PO SCH (07:57)
[2017-05-22] MEDS: Metoprolol XL (24 HR) Succ 25 MG TAB.ER.24H PO SCH (08:01)
[2017-05-22] MEDS: Venlafaxine XR (24 HR) 37.5 MG CAP.ER.24H PO SCH (08:02)
[2017-05-22] MEDS: Aspirin 81 MG TAB.CHEW PO SCH (08:02)
[2017-05-22] MEDS: Gabapentin 100 MG CAPSULE PO SCH ×2 (08:02→13:47)
[2017-05-22] MEDS: Lisinopril 20 MG TABLET PO SCH (08:02)
--- NOTE | 2017-05-22 09:08 | Pulmonology Progress Note ---
<DeboDerrell W - Last Filed: 05/22/17 10:13> Date of Encounter: 05/22/17 Objective PUL Vital signs: Last Vital Signs Temp 97 F L 05/22/17 08:00 Pulse 93 05/22/17 08:00 Resp 16 05/22/17 08:00 BP 124/63 05/22/17 08:00 Pulse Ox 96 05/22/17 08:00 Results - Laboratory Findings CBC and BMP: 05/22/17 03:45 05/22/17 03:45 PT/INR, D-dimer PT 10.8 Seconds (9.4-12.1) 05/19/17 20:57 Abnormal lab findings: Abnormal lab results RBC 3.41 M/mcL (3.82-4.97) L 05/22/17 03:45 Hgb 9.7 g/dL (11.5-15.4) L 05/22/17 03:45 Hct 31.3 % (35.3-44.9) L 05/22/17 03:45 MCHC 31.0 g/dL (31.6-35.5) L 05/22/17 03:45 Plt Count 131 K/mcL (140-400) L 05/22/17 03:45 MPV 8.9 fL (9.4-12.4) L 05/22/17 03:45 Sodium 146 mEq/L (136-145) H 05/22/17 03:45 Chloride 118 mEq/L (98-107) H 05/22/17 03:45 Est GFR (Non-Af Amer) 55 (> 60) L 05/22/17 03:45 POC Glucose 144 (58-89) H 05/20/17 05:00 Calculated Osmolality 301 (280-300) H 05/22/17 03:45 Calcium 8.4 mg/dL (8.6-10.3) L 05/22/17 03:45 Urine Clarity Cloudy (Clear) A 05/19/17 22:43 Urine Ketones Trace mg/dL (Negative) H 05/19/17 22:43 Urine Bilirubin Small (Negative) H 05/19/17 22:43 Ur Leukocyte Esterase Small (Negative) H 05/19/17 22:43 Ur Culture Indicated? YES (NO) A 05/19/17 22:43 - Clinical Findings Intake & Output: Intake & Output 05/21/17 05/22/17 05/22/17 23:59 07:59 15:59 Intake Total 350 / 350 100 / 100 220 / 220 Output Total 250 / 250 300 / 300 200 / 200 Balance 100 / 100 -200 / -200 20 / 20 Weight 59.8 kg Consult Discharge Plan - Plan Referrals: Chris Lazaro MD [Primary Care Provider] - - Attending Attestation I examined this patient and my medical decision-making was reviewed with the Resident Physician. I agree with the documented findings, disposition and treatment plan as described except to the extent set forth below. We independently had [id number] contact with the patient Patient seen and examined at bedside Labs, radiology, chart personally reviewed. Management was reviewed during multidisciplinary critical care rounds. 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 Improving. Now restart home BENDING FRAME OPERATOR meds. Focus on sleep wake cycle yazidi. Pulm: Increased O2 requirement aspiration?PNA vs Hydrostatic Pulmonary Edema. CXR pending Cards: Hypotensive initial now hypertensive adjusting BP meds (ncrease BB, Add hydralazine as needed) FEN-GI: ADAT after bedside speech/swallow eval Renal: UOP monitored ID: ?Aaspiration PNA cultures negative thus far plan to deescalate/stop based upon CXR findings Heme/Onc: DVT prophylaxis given Endo: Glucose Monitored Integ/MSK: Skin Care per routine ICU Nursing Protocol to prevent ulcers. Lines: All lines examined without evidence of infection : Dispo: Stable for transfer to MED/TELE CODE: Full. <Marycruz Mitchell - Last Filed: 05/22/17 17:58> Date of Encounter: 05/22/17 Time of Encounter: 08:55 Assessment and Plan (1) Hypotension Current Visit: Yes Status: Acute Hypotensive in ED, refractory to initial fluid resuscitation; CVC placed and pressors given initially. Possible cause being polypharmacy as patient recently started on Cardizem along with metoprolol and lisinopril. Currently patient has been weaned from pressors and is hypertensive. Plan: - increased home metoprolol ER 25mg daily to 50mg daily - continue lisinopril 20mg daily - Hydralazine 10 mg every 4 hours prn Qualifiers: Hypotension type: unspecified hypotension type Qualified Code(s): I95.9 - Hypotension, unspecified (2) Pneumonia Current Visit: Yes Status: Suspected Possible pneumonia. CT scan of chest showed bilateral lower lobe atelectasis or pneumonia. Patient's white blood cell count is within normal limits and has been afebrile. Has required increase supportive oxygen. Patient was on room air yesterday and now requiring nasal cannula 4 L. Plan: - discontinue Vanco, continue Zosyn - repeat CXR showed pulmonary edema - PRN Duonebs Qualifiers: Pneumonia type: due to unspecified organism Laterality: bilateral Lung location: lower lobe of lung Qualified Code(s): J18.1 - Lobar pneumonia, unspecified organism (3) Dementia Current Visit: Yes Status: Acute Patient's home medications include: venlafaxine, trazodone, mirtazapine, Cymbalta, amitriptyline. Patient is at high risk for serotonin syndrome. We will restart mirtazapine, duloxetine. Soft restraints a very limited as patient is more cooperative and is not interfering with treatment. Qualifiers: Dementia type: unspecified type Dementia behavioral disturbance: with behavioral disturbance Qualified Code(s): F03.91 - Unspecified dementia with behavioral disturbance (4) Paroxysmal A-fib Current Visit: Yes Status: Acute Currently regular rate and rhythm. Will increase home dose to 50 mg of metoprolol daily Patient initially presented with chest pain, troponins negative 3. (5) Diarrhea Current Visit: Yes Status: Acute Patient's home medication list includes Loperamide therefore diarrhea might be chronic. Patient did have a positive guaiac stool. Patient's home medications include aspirin, Celecoxib, and Omeprazole. Hemoglobin stable from yesterday. Qualifiers: Diarrhea type: unspecified type Qualified Code(s): R19.7 - Diarrhea, unspecified (6) DVT prophylaxis Current Visit: No Status: Acute EPCD, heparin SQ (7) Delirium due to another medical condition, acute, hyperactive Current Visit: Yes Status: Acute Most likely secondary to pneumonia and abnormal blood pressure. Patient is more oriented today. Blood pressure is better controlled. We will decrease the number of home medications involving serotonin and dopamine to hopefully improve delirium. Subjective Principal diagnosis: AMS, Chest Pain, Hypotension Interval history: 76-year-old female past medical history of hypertension, dementia, and paroxysmal A. fib presented from the group home for chest pain and is found to be hypotensive with a systolic BP in the 70s and initially refractory to fluid resuscitation. Overnight no acute events. Today patient states that she is short of breath and is having pain in her neck where her line is. Patient denies dizziness, nausea, vomiting, chest pain. Today patient is that she is in the hospital and believes that she is here for shortness of breath. Objective PUL Vital signs: Last Vital Signs Temp 97 F L 05/22/17 08:00 Pulse 93 05/22/17 08:00 Resp 16 05/22/17 08:00 BP 124/63 05/22/17 08:00 Pulse Ox 96 05/22/17 08:00 Constitutional: Alert, in no acute distress, A&O x2 oriented to name, place Head: Normocephalic, atraumatic Heart: regular rate and regular rhythm , no murmurs Lungs: Clear to auscultation, no wheezes on NC 2L Abdomen: Soft, nondistended, nontender, bowel sounds present and normal, no guarding or rigidity. Extremities: No clubbing, cyanosis, or edema, capillary refill <2sec. Skin: Skin warm and dry, no lesions, no rashes, no jaundice Neurologic: Cranial nerves II through XII grossly intact, no focal deficits, strength 5/5 in all extremities Psych: speech clear, patient answering questions with appropriate responses Results - Laboratory Findings CBC and BMP: 05/22/17 03:45 05/22/17 03:45 PT/INR, D-dimer PT 10.8 Seconds (9.4-12.1) 05/19/17 20:57 Abnormal lab findings: Abnormal lab results RBC 3.41 M/mcL (3.82-4.97) L 05/22/17 03:45 Hgb 9.7 g/dL (11.5-15.4) L 05/22/17 03:45 Hct 31.3 % (35.3-44.9) L 05/22/17 03:45 MCHC 31.0 g/dL (31.6-35.5) L 05/22/17 03:45 Plt Count 131 K/mcL (140-400) L 05/22/17 03:45 MPV 8.9 fL (9.4-12.4) L 05/22/17 03:45 Sodium 146 mEq/L (136-145) H 05/22/17 03:45 Chloride 118 mEq/L (98-107) H 05/22/17 03:45 Est GFR (Non-Af Amer) 55 (> 60) L 05/22/17 03:45 POC Glucose 144 (58-89) H 05/20/17 05:00 Calculated Osmolality 301 (280-300) H 05/22/17 03:45 Calcium 8.4 mg/dL (8.6-10.3) L 05/22/17 03:45 Urine Clarity Cloudy (Clear) A 05/19/17 22:43 Urine Ketones Trace mg/dL (Negative) H 05/19/17 22:43 Urine Bilirubin Small (Negative) H 05/19/17 22:43 Ur Leukocyte Esterase Small (Negative) H 05/19/17 22:43 Ur Culture Indicated? YES (NO) A 05/19/17 22:43 - Clinical Findings Intake & Output: Intake & Output 05/21/17 05/22/17 05/22/17 23:59 07:59 15:59 Intake Total 350 / 350 100 / 100 220 / 220 Output Total 250 / 250 300 / 300 200 / 200 Balance 100 / 100 -200 / -200 20 / 20 Weight 59.8 kg - VTE Documentation of Mechanical Device: Intermittent pneumatic compression device
[2017-05-22] MEDS ORDERED: Aminoglycoside Consult 1 EACH MC ONE (09:24)
[2017-05-22] MEDS: *HR* Heparin 5,000 UNIT/ML VIAL SQ SCH ×2 (12:38→18:10)
[2017-05-22] MEDS: 0.9 % Sodium Chloride 1,000 ML IVC SCH ×5 (12:42→12:46)
[2017-05-22] MEDS ORDERED: Furosemide 20 MG/2 ML VIAL IVP SCH (13:45)
[2017-05-22] MEDS ORDERED: Furosemide 20 MG/2 ML VIAL IVP ONE (13:45)
[2017-05-22] MEDS ORDERED: Furosemide 40 MG/4 ML VIAL IVP ONE (14:23)
--- NOTE | 2017-05-22 17:02 | Event Note ---
Date of Encounter: 05/22/17 Time of Encounter: 14:[address] Nunez the admitting hospitalist about transfer to the med/ surg floor. Dr. Nunez agreed to accept. Please place patient on telemetry bed.
[2017-05-22] MEDS ORDERED: Ondansetron 4 MG/2 ML VIAL IVP PRN (19:16)
[2017-05-22] MEDS ORDERED: Naloxone 0.4 MG/ML INJ IVP PRN (19:16)
[2017-05-22] MEDS ORDERED: Acetaminophen 325 MG TABLET PO PRN (19:16)
[2017-05-22] MEDS ORDERED: Mirtazapine 15 MG TABLET PO SCH (21:00)
[2017-05-22] MEDS ORDERED: Gabapentin 100 MG CAPSULE PO SCH (21:00)
[2017-05-23] MEDS: Piperacillin/Tazobactam 3.375 GM in 0.9 % Sodium Chloride Mini Bag 100 ML IVPB SCH (02:34)
[2017-05-23] MEDS ORDERED: *HR* Metoprolol 5 MG/5 ML VIAL IVP ONE ×5 (03:10→04:11)
[2017-05-23 03:57] LABS: Hematocrit 32.8 % (35.3-44.9); Mean Corpuscular HGB Conc 30.5 g/dL (31.6-35.5); Mean Corpuscular Hemoglobin 27.9 pg (28.0-33.3); Mean Corpuscular Volume 91.6 fL (83.0-100.0); Mean Platelet Volume 9.5 fL (9.4-12.4); Platelet Count 116 K/mcL (140-400); Red Blood Count 3.58 M/mcL (3.82-4.97); Red Cell Distribution Width 13.9 % (11.5-14.5)
[2017-05-23 04:15] LABS: BUN/Creatinine Ratio 11 (6-26); Blood Urea Nitrogen 11 mg/dL (8-23); Calcium 8.9 mg/dL (8.6-10.3); Carbon Dioxide 27 mEq/L (23-29); Chloride 112 mEq/L (98-107); Glucose 81 mg/dL (70-105); Osmolality,Calculated 302 (280-300); Potassium 3.8 mEq/L (3.5-5.1); Sodium 147 mEq/L (136-145); eGFR For African Americans > 60 (> 60); eGFR For Non-African Americans 54 (> 60)
[2017-05-23] MEDS ORDERED: Amiodarone Premix 150 MG/100 ML BAG IVPB ONE (04:26)
[2017-05-23] MEDS ORDERED: Amiodarone Premix 360 MG/200 ML BAG IVC ONE (04:26)
[2017-05-23] MEDS ORDERED: Amiodarone Premix 360 MG/200 ML BAG IVC SCH ×2 (04:30→05:02)
--- NOTE | 2017-05-23 04:54 | Event Note ---
Date of Encounter: 05/23/17 Time of Encounter: 04:51 Patient reportedly pulled her right internal jugular central venous catheter. She was tended to by the intensive care unit nurses. Minimal bleeding. She remained hemodynamically stable. She appears to have jumped into atrial fibrillation with rapid ventricular response 160 beats per minute. She has a history of proximal atrial fibrillation. It appears that throughout the day she was normal sinus. She normally takes metoprolol 25 mg PO and was increased to 50 mg PO. Upon medical record review patient is allergic to Cardizem as she gets agitated. This was previously a home medication 120 mg PO. Patient was ordered 5 mg IV Lopressor for heart rate with minimal response. Additional 5 mg again with no response. Spoke to the nighttime hospitalist Dr. Brunson recommended Amiodarone bolus and drip. Her blood pressures remain >120 systolic. Patient are ready has orders for telemetry bed. She is still stable for discharge out of the intensive care unit.
[2017-05-23] MEDS ORDERED: Naloxone 0.4 MG/ML INJ IVP PRN (05:02)
[2017-05-23] MEDS ORDERED: *HR* Heparin 5,000 UNIT/ML VIAL SQ SCH (06:00)
--- NOTE | 2017-05-23 07:09 | Pulmonology Progress Note ---
<Marycruz Mitchell - Last Filed: 05/23/17 09:27> Date of Encounter: 05/23/17 Time of Encounter: 08:28 Assessment and Plan (1) Hypotension Current Visit: Yes Status: Resolved Hypotensive in ED, refractory to initial fluid resuscitation; CVC placed and pressors given initially. Possible cause being polypharmacy as patient recently started on Cardizem along with metoprolol and lisinopril. Currently patient has been weaned from pressors and is hypertensive to normotensive. Plan: - increased home metoprolol ER 25mg daily to 50mg daily - continue lisinopril 20mg daily - Amiodarone drip - Hydralazine 10 mg every 4 hours prn, no doses used yesterday Qualifiers: Hypotension type: unspecified hypotension type Qualified Code(s): I95.9 - Hypotension, unspecified (2) Pneumonia Current Visit: Yes Status: Suspected Possible pneumonia. CT scan of chest showed bilateral lower lobe atelectasis or pneumonia. Patient's white blood cell count is within normal limits and has been afebrile. Has required increase supportive oxygen. Patient was on room air yesterday and now requiring nasal cannula 4 L. Plan: - discontinue Vanco, continue Zosyn - repeat CXR showed pulmonary edema - PRN Duonebs - Lasix 20 mg IV daily Qualifiers: Pneumonia type: due to unspecified organism Laterality: bilateral Lung location: lower lobe of lung Qualified Code(s): J18.1 - Lobar pneumonia, unspecified organism (3) Dementia Current Visit: Yes Status: Acute Patient's home medications include: venlafaxine, trazodone, mirtazapine, Cymbalta, amitriptyline. Patient is at high risk for serotonin syndrome. We will restart mirtazapine, duloxetine. Soft restraints a very limited as patient is more cooperative and is not interfering with treatment. Qualifiers: Dementia type: unspecified type Dementia behavioral disturbance: with behavioral disturbance Qualified Code(s): F03.91 - Unspecified dementia with behavioral disturbance (4) Paroxysmal A-fib Current Visit: Yes Status: Acute Episode of A. fib with RVR last night. Patient was placed on amiodarone drip due to hypotension with Cardizem. Currently regular rate. Patient initially presented with chest pain, troponins negative 3. Plan: - metoprolol 50mg daily, increased from home dose 25mg daily - Amiodarone drip - Cardiology consultation, appreciate recommendations for home management of A. fib (5) Diarrhea Current Visit: Yes Status: Chronic Patient's home medication list includes Loperamide therefore diarrhea most likely chronic. Resolved after adding Loperamide. Patient did have a positive guaiac stool. Patient's home medications include aspirin, Celecoxib, and Omeprazole. Hemoglobin stable from yesterday. Qualifiers: Diarrhea type: unspecified type Qualified Code(s): R19.7 - Diarrhea, unspecified (6) DVT prophylaxis Current Visit: No Status: Acute EPCD, heparin SQ (7) Delirium due to another medical condition, acute, hyperactive Current Visit: Yes Status: Acute Most likely secondary to pneumonia and abnormal blood pressure. Patient is more oriented today. Blood pressure is better controlled. We will decrease the number of home medications involving serotonin and dopamine to hopefully improve delirium. Subjective Principal diagnosis: AMS, Chest Pain, Hypotension Interval history: 76-year-old female past medical history of hypertension, dementia, and paroxysmal A. fib presented from the [facility] for chest pain and is found to be hypotensive with a systolic BP in the 70s and initially refractory to fluid resuscitation. Overnight, patient had an episode of A. fib with RVR. Patient was placed on an amiodarone drip. Today patient states that she is is not having any shortness of breath, chest pain, palpitations, dizziness, headaches. Patient states that she knows that she is in the hospital but unsure which hospital and why she is here. She knows it is May 2017. Objective PUL Vital signs: Last Vital Signs Temp 99.6 F 05/23/17 05:53 Pulse 71 05/23/17 06:02 Resp 16 05/23/17 06:02 BP 124/84 05/23/17 06:02 Pulse Ox 100 05/23/17 06:02 Constitutional: Alert, in no acute distress, A&O x3 oriented to name, place, time Head: Normocephalic, atraumatic Heart: regular rate and regular rhythm , no murmurs Lungs: Clear to auscultation, no wheezes on NC 2L Abdomen: Soft, nondistended, nontender, bowel sounds present and normal, no guarding or rigidity. Extremities: No clubbing, cyanosis, or edema, capillary refill <2sec. Skin: Skin warm and dry, no lesions, no rashes, no jaundice Neurologic: Cranial nerves II through XII grossly intact, strength 5/5 in all extremities Psych: speech clear, patient answering questions with appropriate responses still slightly confused but improved from yesterday Results - Laboratory Findings CBC and BMP: 05/23/17 03:42 05/23/17 03:42 PT/INR, D-dimer PT 10.8 Seconds (9.4-12.1) 05/19/17 20:57 Abnormal lab findings: Abnormal lab results RBC 3.58 M/mcL (3.82-4.97) L 05/23/17 03:42 Hgb 10.0 g/dL (11.5-15.4) L 05/23/17 03:42 Hct 32.8 % (35.3-44.9) L 05/23/17 03:42 MCH 27.9 pg (28.0-33.3) L 05/23/17 03:42 MCHC 30.5 g/dL (31.6-35.5) L 05/23/17 03:42 Plt Count 116 K/mcL (140-400) L 05/23/17 03:42 Sodium 147 mEq/L (136-145) H 05/23/17 03:42 Chloride 112 mEq/L (98-107) H 05/23/17 03:42 Est GFR (Non-Af Amer) 54 (> 60) L 05/23/17 03:42 POC Glucose 144 (58-89) H 05/20/17 05:00 Calculated Osmolality 302 (280-300) H 05/23/17 03:42 Urine Clarity Cloudy (Clear) A 05/19/17 22:43 Urine Ketones Trace mg/dL (Negative) H 05/19/17 22:43 Urine Bilirubin Small (Negative) H 05/19/17 22:43 Ur Leukocyte Esterase Small (Negative) H 05/19/17 22:43 Ur Culture Indicated? YES (NO) A 05/19/17 22:43 - Clinical Findings Intake & Output: Intake & Output 05/22/17 05/22/17 05/23/17 15:59 23:59 07:59 Intake Total 220 / 220 200 / 200 100 / 100 Output Total 375 / 375 1800 / 1800 400 / 400 Balance -155 / -155 -1600 / -1600 -300 / -300 Weight 57.9 kg - VTE Documentation of Mechanical Device: Intermittent pneumatic compression device Consult Discharge Plan - Plan Referrals: Chris Lazaro MD [Primary Care Provider] - <Derrell Edmondson W - Last Filed: 05/23/17 11:59> Date of Encounter: 05/23/17 Objective PUL Vital signs: Last Vital Signs Temp 98.6 F 05/23/17 08:30 Pulse 74 05/23/17 09:14 Resp 20 05/23/17 09:14 BP 153/57 05/23/17 09:14 Pulse Ox 97 05/23/17 09:14 Results - Laboratory Findings CBC and BMP: 05/23/17 03:42 05/23/17 03:42 PT/INR, D-dimer PT 10.8 Seconds (9.4-12.1) 05/19/17 20:57 Abnormal lab findings: Abnormal lab results RBC 3.58 M/mcL (3.82-4.97) L 05/23/17 03:42 Hgb 10.0 g/dL (11.5-15.4) L 05/23/17 03:42 Hct 32.8 % (35.3-44.9) L 05/23/17 03:42 MCH 27.9 pg (28.0-33.3) L 05/23/17 03:42 MCHC 30.5 g/dL (31.6-35.5) L 05/23/17 03:42 Plt Count 116 K/mcL (140-400) L 05/23/17 03:42 Sodium 147 mEq/L (136-145) H 05/23/17 03:42 Chloride 112 mEq/L (98-107) H 05/23/17 03:42 Est GFR (Non-Af Amer) 54 (> 60) L 05/23/17 03:42 POC Glucose 144 (58-89) H 05/20/17 05:00 Calculated Osmolality 302 (280-300) H 05/23/17 03:42 Urine Clarity Cloudy (Clear) A 05/19/17 22:43 Urine Ketones Trace mg/dL (Negative) H 05/19/17 22:43 Urine Bilirubin Small (Negative) H 05/19/17 22:43 Ur Leukocyte Esterase Small (Negative) H 05/19/17 22:43 Ur Culture Indicated? YES (NO) A 05/19/17 22:43 - Clinical Findings Intake & Output: Intake & Output 05/22/17 05/23/17 05/23/17 23:59 07:59 15:59 Intake Total 200 / 200 100 / 100 120 / 120 Output Total 1800 / 1800 400 / 400 100 / 100 Balance -1600 / -1600 -300 / -300 Weight 57.9 kg - Attending Attestation I examined this patient and my medical decision-making was reviewed with the Resident Physician. I agree with the documented findings, disposition and treatment plan as described except to the extent set forth below. We independently had [id number] contact with the patient Patient seen and examined at bedside Labs, radiology, chart personally reviewed. Management was reviewed during multidisciplinary critical care rounds. ELEVATOR PILOT: Resolving delirium complicated by underlying dementia. We will focus on hinduism of sleep-wake cycle. avoid sensory deprivation, and avoid ELEVATOR PILOT depressant medications as able. Cards: A. fib with RVR overnight loaded with amiodarone rate controlled continue beta ebony cardiology recommendations for home-going treatment of A. fib FEN-GI: ADAT Renal: Urine output monitored ID: Concern for sepsis questionable pneumonia on Pip/Tazo. Thus cultures negative clinically well-appearing no leuckocytosis we will stop this and monitor Heme/Onc: DVT prophylaxis given Endo: Glucose Monitored Integ/MSK: Skin Care per routine ICU Nursing Protocol to prevent ulcers. Lines: All lines examined without evidence of infection : Dispo: Stable for transfer to stepdown because of high risk use of medication CODE: Full
[2017-05-23] MEDS ORDERED: Metoprolol XL (24 HR) Succ 25 MG TAB.ER.24H PO SCH (09:00)
[2017-05-23] MEDS ORDERED: Lisinopril 20 MG TABLET PO SCH (09:00)
[2017-05-23] MEDS ORDERED: Aspirin 81 MG TAB.CHEW PO SCH (09:00)
[2017-05-23] MEDS: Gabapentin 100 MG CAPSULE PO SCH ×3 (09:47→20:35)
[2017-05-23] MEDS: Aspirin 81 MG TAB.CHEW PO SCH (09:48)
[2017-05-23] MEDS: Lisinopril 20 MG TABLET PO SCH (09:48)
[2017-05-23] MEDS: Metoprolol XL (24 HR) Succ 25 MG TAB.ER.24H PO SCH (09:48)
[2017-05-23] MEDS ORDERED: Piperacillin/Tazobactam 3.375 GM in 0.9 % Sodium Chloride Mini Bag 100 ML IVPB SCH (10:00)
[2017-05-23] MEDS: hydrOXYzine pamoate 25 MG CAPSULE PO PRN ×2 (12:54→17:25)
--- NOTE | 2017-05-23 13:25 | Cardiology Consult Note ---
Date of Encounter: 05/23/17 Time of Encounter: 13:23 Assessment and Plan (1) Atrial flutter with rapid ventricular response Current Visit: Yes Status: Acute Hx lists PAF. Admitted with ASHTYN, UTI, HCAP, hypotension requiring pressors. Went into A-Flutter RVR overnight--reviewed strips and EKGs with Dr. Robins. K 3.8, mag 2.0. Was started on Amiodarone gtt, now in SR. Currently on amio gtt at 0.5mg. Episode was ~ 2 1/2 hours. BP has improved, now off pressors. PO BB has been increased by primary team-- Toprol XL was increased from 25 to 50mg daily. Agree with increase. Was recently started on Cardizem, but was stopped on admission given hypotension and is a listed allergy. Stop amiodarone gtt. Will not start PO amio at this time given brief occurrence of PAFl in setting of above and now SR. Limited TTE EF preserved. No significant findings. [id number] is 4 (Age, HTN, Female). High CVA risk. However, hemoccult positive and high falls risk given her dementia. H&H stable. Management per primary team. Would at least recommend 81mg ASA daily if felt safe from primary team. Anticipate sign off once seen and evaluated by Dr. Robins. Discussion w patient/family: The assessment and plan as outlined above was discussed with the patient and/or family members who expressed understanding and agreement. All questions were answered. Thank you for involving us in the care of your patient. Please call with any questions. I will discuss all the above with Dr. Robins and make changes as necessary. History of Present Illness Consult date: 05/23/17 Requesting physician: Jesus Saucedo Consult reason: A-Fib RVR, amio recs Chief complaint: Palpitations History of present illness: Ms. Tolliver is a 76 year old female with PMH of hypertension, dementia, PAF, sent from [facility] initially for chest pain. When patient to get to ER, she was found hypotensive with systolic blood pressure at 70s. Patient was given IV fluid, started on vasopressors. Patient was found guaiac positive but hemoglobin is generally stable. CT chest suspected pneumonia. UA suspect UTI. ASHTYN on admission with creatinine 2.19, now resolved. Pt went into A-Fib RVR overnight, was started on amiodarone gtt. Pt is now back in SR. Cardiology consulted for further recommendations. TTE 05/21/17 EF 65%, normal wall motion. Pt is confused , but denies ever having chest pain. Reports she did have palpitations. Past Med Surg Social Fam HX - Past Medical History Medical history: atrial fibrillation, fibromyalgia, hypertension Psychiatric history: anxiety - Past Surgical History Surgical History: hip replacement, other - Social History Smoking Status: Never smoker Smokeless Tobacco Status: No Alcohol use: none Drug use: none - Family History Mother Living Status: Father Living Status: Medications and Allergies Acetaminophen [Tylenol Arthritis] 650 mg PO Q8H PRN 03/09/17 [History] Amitriptyline [Elavil] 25 mg PO HS 03/09/17 [History] Celecoxib [Celebrex] 200 mg PO DAILY 03/09/17 [History] Cholecalciferol (Vitamin D3) [Vitamin D3] 5,000 unit PO DAILY 03/09/17 [History] Duloxetine HCl [Cymbalta] 60 mg PO HS 03/09/17 [History] Gabapentin [Neurontin] 100 mg PO TID 03/09/17 [History] Lisinopril [Zestril] 20 mg PO DAILY 03/09/17 [History] Loperamide HCl [Anti-Diarrheal] 2 mg PO Q4H PRN 03/09/17 [History] Mag Hydrox/Al Hydrox/Simeth [Antacid Suspension] 30 ml PO Q4H PRN 03/09/17 [ History] Metoprolol Succinate 25 mg PO DAILY 03/09/17 [History] Mirtazapine 7.5 mg PO HS 03/09/17 [History] Omeprazole [PriLOSEC] 20 mg PO DAILY 03/09/17 [History] Venlafaxine HCl [Venlafaxine HCl ER] 37.5 mg PO BID 03/09/17 [History] Vitamin B Complex [B Complex] 1 each PO DAILY 03/09/17 [History] traZODone [TraZODone] 75 mg PO HS 03/09/17 [History] Aspirin 81 mg PO DAILY tab.chew 03/16/17 [Rx] dilTIAZem HCl [Diltiazem 24Hr Cd] 120 mg PO DAILY 05/20/17 [History] 3 Allergy/AdvReac Type Severity Reaction Status Date / Time diltiazem [From Cardizem] Allergy Agitated Verified 05/20/17 12:31 morphine AdvReac Agitated Verified 05/20/17 12:31 pregabalin [From Lyrica] AdvReac Agitated Verified 05/20/17 12:31 All Systems Review: The remainder of the systems were reviewed and are negative - Cardiovascular Cardiovascular: as per HPI, palpitations Physical Examination Vital Signs, Last 4 Hours Pulse Resp BP Pulse Ox 05/23/17 11:14 76 20 159/98 97 05/23/17 10:20 66 19 147/90 96 Vital Signs Temp Pulse Resp BP Pulse Ox 05/23/17 11:14 76 20 159/98 97 05/23/17 10:20 66 19 147/90 96 05/23/17 09:14 74 20 153/57 97 05/23/17 08:30 98.6 F 71 19 145/92 100 05/23/17 07:39 67 21 117/87 96 05/23/17 06:02 71 16 124/84 100 05/23/17 05:53 99.6 F 05/23/17 05:01 142 18 106/78 100 05/23/17 04:00 154 18 116/86 93 05/23/17 00:35 99.7 F H 05/23/17 00:00 89 14 162/89 92 05/22/17 20:25 100.2 F H 05/22/17 20:00 88 14 116/64 97 05/22/17 16:00 97.5 F L 83 15 112/58 98 Intake and Output 05/22/17 05/23/17 05/23/17 23:59 07:59 15:59 Intake Total 200 / 200 100 / 100 320 / 320 Output Total 1800 / 1800 400 / 400 100 / 100 Balance -1600 / -1600 -300 / -300 220 / 220 Intake: IV Fluids 200 / 200 100 / 100 200 / 200 Amiodarone Drip Premix 360mg/ 200 / 200 200mL 360 mg In 200 ml @ 1 MG/ MIN 33.333 mls/hr IVC ONCE ONE Rx#:[id number] Amiodarone Premix 150mg/100mL 100 / 100 150 mg In 100 ml @ 300 mls/hr IVPB ONCE ONE Rx#:[id number] Zosyn 3.375 GM In 0.9 % Sodium 200 / 200 Chloride (Mini-Bag +) 100 ML @ 25 mls/hr IVPB Q8H [facility] Rx#: [id number] Oral 120 / 120 Output: Catheter 1800 / 1800 400 / 400 100 / 100 Other: Stool Size Moderate Stool Consistency soft Stool Characteristics Normal for Patient Stool Color Brown # Bowel Movements 1 Weight 57.9 kg Patient Weight 05/23/17 23:59 Weight 57.9 kg General: Conversant, No Apparent Distress HEENT: Atraumatic, Normocephaly, Mucus Membranes Moist Neck: No JVD, Normal carotid pulses Cardiac: Reg Rate and Rhythm, Normal S1 and S2, No Murmur Lungs: Normal Breath Sounds, No Wheeze, Rales, Rhonchi Neuro: Alert and responsive, Other (confused) Abdomen: Soft, Non-Tender Skin: No rashes noted on visualized skin Musculoskeletal: No Chest Wall Tenderness Extremities: No Clubbing, No Cyanosis, No Edema, Normal Pulses Results 05/23/17 03:42 05/23/17 03:42 Lab Results 05/22/17 05/23/17 05/23/17 14:22 03:42 03:42 WBC 5.4 Hgb 10.0 L Hct 32.8 L Plt Count 116 L Sodium 147 H Potassium 3.8 Chloride 112 H Carbon Dioxide 27 BUN 11 Creatinine 1.00 Glucose 81 Calcium 8.9 Magnesium 2.0 Short CBC 05/23/17 Range/Units 03:42 WBC 5.4 (4.3-11.1) K/mcL Hgb 10.0 L (11.5-15.4) g/dL Hct 32.8 L (35.3-44.9) % Plt Count 116 L (140-400) K/mcL BMP 05/23/17 Range/Units 03:42 Sodium 147 H (136-145) mEq/L Potassium 3.8 (3.5-5.1) mEq/L Chloride 112 H (98-107) mEq/L Carbon Dioxide 27 (23-29) mEq/L BUN 11 (8-23) mg/dL Creatinine 1.00 (0.60-1.20) mg/dL Glucose 81 (70-105) mg/dL Calcium 8.9 (8.6-10.3) mg/dL Impressions Chest X-Ray 05/22/17 11:35 IMPRESSION: New, small bilateral pleural effusions, worse on the right than the left. Interstitial opacities are similar to prior and may reflect interstitial edema. D/ / 05/22/2017 13:26:35 Omar Roberson MD / shauna Interpreting Provider: Omar Roberson MD Active Medications Acetaminophen (Tylenol) 650 mg PO Q6HR PRN PRN Reason: Mild Pain/Fever Stop: 11/19/17 04:27 Aspirin (Aspirin) 81 mg PO DAILY [facility] Stop: 11/19/17 09:01 Last Admin: 05/23/17 09:48 Dose: 81 mg Duloxetine HCl (Cymbalta) 60 mg PO HS [facility] Stop: 11/19/17 21:01 Gabapentin (Neurontin) 100 mg PO TID [facility] Stop: 11/20/17 15:16 Last Admin: 05/23/17 09:47 Dose: 100 mg Heparin Sodium (Porcine) (Heparin) 5,000 unit SQ Q12HCO [facility] Stop: 11/21/17 11:46 Hydralazine HCl (Hydralazine) 10 mg IVP Q4HR PRN PRN Reason: Hypertension Stop: 11/20/17 20:01 Hydroxyzine Pamoate (Hydroxyzine Pamoate) 25 mg PO QID PRN PRN Reason: Anxiety Stop: 11/22/17 11:28 Last Admin: 05/23/17 12:54 Dose: 25 mg Amiodarone HCl/Dextrose (Amiodarone Drip Premix 360mg/200ml) 360 mg in 200 mls @ 16.667 mls/hr IVC CONT POLO PRN Reason: 0.5 MG/MIN Stop: 11/22/17 04:31 Last Admin: 05/23/17 11:09 Dose: 0.5 mg/min, 16.667 mls/hr Lisinopril (Zestril) 20 mg PO DAILY [facility] PRN Reason: Protocol Stop: 11/20/17 11:46 Last Admin: 05/23/17 09:48 Dose: 20 mg Loperamide HCl (Imodium) 2 mg PO Q4H PRN PRN Reason: Diarrhea Metoprolol Succinate (Toprol Xl) 50 mg PO DAILY [facility] Stop: 11/21/17 07:58 Last Admin: 05/23/17 09:48 Dose: 50 mg Mirtazapine (Remeron) 7.5 mg PO HS POLO Stop: 11/20/17 21:01 Naloxone HCl (Narcan) 0.4 mg IVP Q2MIN PRN PRN Reason: SEE COMMENTS Stop: 11/19/17 04:27 Ondansetron HCl (Zofran) 4 mg IVP Q8HR PRN; Protocol PRN Reason: Nausea Stop: 11/20/17 16:02 - Imaging and Cardiology Echo: report reviewed - EKG Interpretation EKG results cardiology: personally reviewed (A-Flutter RVR, rate 150s), other ( 12 hr tele AVG HR 90, PAFl) Consult Discharge Plan - Plan Referrals: Chris Lazaro MD [Primary Care Provider] -
[2017-05-23] MEDS: *HR* Heparin 5,000 UNIT/ML VIAL SQ SCH (17:25)
[2017-05-23] MEDS: Mirtazapine 15 MG TABLET PO SCH (20:35)
[2017-05-23] MEDS ORDERED: Melatonin 3 MG TABLET PO SCH (22:30)
--- NOTE | 2017-05-23 23:06 | Electrocardiograph Report ---
[place] [id number] Test Date: 2017-05-19 Pat Name: Lucy Tolliver Department: 103 Room: 06 Gender: F Frit Coater: : 1940 Requested By: Rio Scott Order Number: [id number] Reading MD: Raudel Crisostomo DO Measurements Intervals [place] Rate: 77 P: 52 [place]: 197 QRS: 63 QRSD: 132 T: 0 QT: 398 QTc: 430 Interpretive Statements SINUS RHYTHM WITH FREQUENT SUPRAVENTRICULAR PREMATURE COMPLEXES RIGHT BUNDLE BRANCH BLOCK Electronically Signed On 05-23-2017 23:04:40 EDT by Raudel Crisostomo DO
--- NOTE | 2017-05-23 23:12 | Electrocardiograph Report ---
[place] [address] Test Date: 2017-05-23 Pat Name: Lucy Tolliver Department: 109 Room: 06 Gender: F Critical Care Educator: : 1940 Requested By: Jesus Saucedo Order Number: [id number] Reading MD: Raudel Crisostomo DO Measurements Intervals [place] Rate: 144 P: 228 [place]: 142 QRS: 72 QRSD: 126 T: -56 QT: 327 QTc: 410 Interpretive Statements ATRIAL FLUTTER/TACHYCARDIA RIGHT BUNDLE BRANCH BLOCK Electronically Signed On 05-23-2017 23:10:21 EDT by Raudel Crisostomo DO
--- NOTE | 2017-05-23 23:13 | Electrocardiograph Report ---
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
[2017-05-24] MEDS ORDERED: traZODone 50 MG TABLET PO PRN (00:25)
[2017-05-24 03:52] LABS: Basophils % 0.4 %; Eosinophils # 0.1 K/mcL (0.0-0.6); Eosinophils % 2.9 %; Hematocrit 32.9 % (35.3-44.9); Hemoglobin 10.4 g/dL (11.5-15.4); Immature Granulocytes % 1.1 % (0-4); Lymphocytes # 1.2 K/mcL (0.6-4.6); Lymphocytes % 26.7 %; Mean Corpuscular HGB Conc 31.6 g/dL (31.6-35.5); Mean Corpuscular Hemoglobin 28.2 pg (28.0-33.3); Mean Corpuscular Volume 89.2 fL (83.0-100.0); Mean Platelet Volume 9.6 fL (9.4-12.4); Monocytes # 0.4 K/mcL (0.0-1.3); Monocytes % 9.1 %; Neutrophils # 2.7 K/mcL (1.6-8.9); Platelet Count 136 K/mcL (140-400); Red Blood Count 3.69 M/mcL (3.82-4.97); Red Cell Distribution Width 13.8 % (11.5-14.5); Segmented Neutrophils % 59.8 %
[2017-05-24 04:08] LABS: BUN/Creatinine Ratio 13 (6-26); Blood Urea Nitrogen 12 mg/dL (8-23); Calcium 9.1 mg/dL (8.6-10.3); Carbon Dioxide 29 mEq/L (23-29); Chloride 109 mEq/L (98-107); Glucose 101 mg/dL (70-105); Osmolality,Calculated 300 (280-300); Potassium 3.4 mEq/L (3.5-5.1); Sodium 145 mEq/L (136-145); eGFR For African Americans > 60 (> 60); eGFR For Non-African Americans > 60 (> 60)
[2017-05-24] MEDS: *HR* Heparin 5,000 UNIT/ML VIAL SQ SCH ×3 (05:03→16:38)
[2017-05-24] MEDS: Lisinopril 20 MG TABLET PO SCH (07:58)
[2017-05-24] MEDS: Metoprolol XL (24 HR) Succ 25 MG TAB.ER.24H PO SCH (07:58)
[2017-05-24] MEDS: Aspirin 81 MG TAB.CHEW PO SCH (07:58)
[2017-05-24] MEDS: Gabapentin 100 MG CAPSULE PO SCH ×3 (07:58→20:00)
--- NOTE | 2017-05-24 08:43 | Internal Med Progress Note ---
Date of Encounter: 05/24/17 Time of Encounter: 08:43 - Subjective Interval history: Interval changes: 05/24/2017: A-Fib rate controlled with Metoprolol Hypertensive now Breathing improved Off abx now Assessment and Plan (1) Atrial flutter with rapid ventricular response Cardiology following Cardizem caused hypotension and was d/c'd Then started on Amiodarone gtt In SR now and Amiodaron gtt d/c'd. Toprol XL started and dose was increased from 25 to 50mg daily. TTE unrevealing [id number] is 4 (Age, HTN, Female). High CVA risk. However, hemoccult positive and high falls risk given her dementia so not on A/ C. Cardiology recommending at least 81mg ASA daily if felt safe from primary team. (2) Hypotension Per Pulmonoly notes: "Hypotensive in ED, refractory to initial fluid resuscitation; CVC placed and pressors given initially. Possible cause being polypharmacy as patient recently started on Cardizem along with metoprolol and lisinopril." Pressoes weaned off Currently hypertensive. Metoprolol ER was increased from 25mg daily to 50mg daily Continue lisinopril 20mg daily Continue Hydralazine 10 mg every 4 hours prn if needed (3) Pneumonia: Per pulmonology notes possible pneumonia. CT scan of chest showed bilateral lower lobe atelectasis vs. pneumonia. White blood cell count is within normal limits and has been afebrile. Pulmonology d/c'd Vanco but initialy continued Zosyn. Now off all antibiotics Repeat CXR showed pulmonary edema Lasix 20 mg IV daily added prior to transfer to hospitalist service - Constitutional Vitals: Temp Pulse Resp BP Pulse Ox 99.5 F 91 16 154/80 93 05/24/17 08:00 05/24/17 08:00 05/24/17 08:00 05/24/17 08:00 05/24/17 08:00 General appearance: Present: A&O X 3, pleasant, no acute distress, answers questions appropriately - Head Head exam: Present: atraumatic, normocephalic - Eye Eye exam: Present: EOMI, PERRL, conjuntiva pink, sclera anicteric Pupils: Present: PERRL - Neck Neck exam general surgery: Present: supple, trachea midline. Absent: lymphadenopathy, thyromegaly - Respiratory Respiratory exam: Present: CTAB. Absent: accessory muscle use, rales, rhonchi, wheezes Additional comments: Rales at bases but otherwise CTAB - Cardiovascular Cardiovascular exam: Present: RRR, +S1, +S2. Absent: diastolic murmur, gallop, rubs, systolic murmur - GI/Abdominal GI/Abdominal exam: Present: normal bowel sounds, soft, no peritoneal signs. Absent: distended, firm, guarding, rebound, rigid, tenderness - Extremities Exam Extremities exam: Present: warm, radial pulses palpable and symmetrical. Absent : calf tenderness, cyanotic, pedal edema - Neurological Exam Neurological exam: Present: CN II-XII intact, oriented X3, no focal deficits. Absent: pronater drift, facial droop, speech deficit - Skin Skin exam: Present: intact, warm Internal Medicine: Result - Labs CBC & Chem 7: 05/24/17 03:22 05/24/17 03:22 Labs: Short CBC 05/24/17 Range/Units 03:22 WBC 4.5 (4.3-11.1) K/mcL Hgb 10.4 L (11.5-15.4) g/dL Hct 32.9 L (35.3-44.9) % Plt Count 136 L (140-400) K/mcL Neutrophils # 2.7 (1.6-8.9) K/mcL BMP 05/24/17 03:22 Sodium 145 Potassium 3.4 L Chloride 109 H Carbon Dioxide 29 BUN 12 Creatinine 0.90 Glucose 101 Calcium 9.1 - ABG Interpretation ABG results: PT/INR, D-dimer PT 10.8 Seconds (9.4-12.1) 05/19/17 20:57 - VTE Documentation of Mechanical Device: Intermittent pneumatic compression device Consult Discharge Plan - Plan Referrals: Chris Lazaro MD [Primary Care Provider] -
[2017-05-24] MEDS: Acetaminophen 325 MG TABLET PO PRN ×2 (09:51→16:53)
[2017-05-24] MEDS ORDERED: *HR* LORazepam 2 MG/ML VIAL IVP PRN (18:29)
--- NOTE | 2017-05-24 19:24 | Electrocardiograph Report ---
[place] [id number] Test Date: 2017-05-23 Pat Name: Lucy Tolliver Department: 109 Room: 06 Gender: F Burr Picker: : 1940 Requested By: Geovanna Brunson Order Number: [id number] Reading MD: Kelby Robins MD Measurements Intervals [place] Rate: 71 P: 75 [place]: 162 QRS: 65 QRSD: 122 T: 25 QT: 385 QTc: 407 Interpretive Statements SINUS RHYTHM WITH OCCASIONAL SUPRAVENTRICULAR PREMATURE COMPLEXES RIGHT BUNDLE BRANCH BLOCK Electronically Signed On 05-24-2017 19:22:35 EDT by Kelby Robins MD
[2017-05-24] MEDS: Melatonin 3 MG TABLET PO SCH (20:00)
[2017-05-24] MEDS: Mirtazapine 15 MG TABLET PO SCH (20:01)
[2017-05-25 03:52] LABS: Basophils % 0.4 %; Eosinophils # 0.1 K/mcL (0.0-0.6); Hematocrit 33.8 % (35.3-44.9); Hemoglobin 10.9 g/dL (11.5-15.4); Immature Granulocytes % 1.3 % (0-4); Lymphocytes # 1.1 K/mcL (0.6-4.6); Lymphocytes % 24.1 %; Mean Corpuscular HGB Conc 32.2 g/dL (31.6-35.5); Mean Corpuscular Hemoglobin 27.9 pg (28.0-33.3); Mean Corpuscular Volume 86.4 fL (83.0-100.0); Mean Platelet Volume 9.7 fL (9.4-12.4); Monocytes # 0.4 K/mcL (0.0-1.3); Monocytes % 9.3 %; Neutrophils # 2.9 K/mcL (1.6-8.9); Platelet Count 153 K/mcL (140-400); Red Blood Count 3.91 M/mcL (3.82-4.97); Red Cell Distribution Width 14.3 % (11.5-14.5); Segmented Neutrophils % 61.9 %
[2017-05-25 04:13] LABS: BUN/Creatinine Ratio 22 (6-26); Blood Urea Nitrogen 17 mg/dL (8-23); Calcium 9.9 mg/dL (8.6-10.3); Carbon Dioxide 28 mEq/L (23-29); Chloride 109 mEq/L (98-107); Glucose 101 mg/dL (70-105); Osmolality,Calculated 306 (280-300); Potassium 3.1 mEq/L (3.5-5.1); Sodium 147 mEq/L (136-145); eGFR For African Americans > 60 (> 60); eGFR For Non-African Americans > 60 (> 60)
[2017-05-25] MEDS ORDERED: Potassium Chloride Elixir 20 MEQ/15 ML UDC PO ONE ×2 (06:54→09:50)
[2017-05-25] MEDS: *HR* Heparin 5,000 UNIT/ML VIAL SQ SCH ×2 (07:19→17:29)
[2017-05-25] MEDS: Metoprolol XL (24 HR) Succ 25 MG TAB.ER.24H PO SCH (08:57)
[2017-05-25] MEDS: Gabapentin 100 MG CAPSULE PO SCH ×3 (08:58→20:09)
[2017-05-25] MEDS: Lisinopril 20 MG TABLET PO SCH (08:58)
[2017-05-25] MEDS: Aspirin 81 MG TAB.CHEW PO SCH (08:58)
--- NOTE | 2017-05-25 09:50 | Internal Med Progress Note ---
Date of Encounter: 05/25/17 Time of Encounter: 09:49 - Subjective Interval history: Interval changes: 05/24/2017: A-Fib rate controlled with Metoprolol Hypertensive now Breathing improved Off abx now 05/25/2017: Assessment and Plan (1) Atrial flutter with rapid ventricular response Cardiology following Cardizem caused hypotension and was d/c'd Then started on Amiodarone gtt In SR now and Amiodaron gtt d/c'd. Toprol XL started and dose was increased from 25 to 50mg daily. TTE unrevealing [id number] is 4 (Age, HTN, Female). High CVA risk. However, hemoccult positive and high falls risk given her dementia so not on A/ C. Cardiology recommending at least 81mg ASA daily if felt safe from primary team. (Hgb stable still) Consider starting Eliquis/Xarelto and monitoring Hgb prior to discharge (2) Hypotension Per Pulmonoly notes: "Hypotensive in ED, refractory to initial fluid resuscitation; CVC placed and pressors given initially. Possible cause being polypharmacy as patient recently started on Cardizem along with metoprolol and lisinopril." Pressoes weaned off Currently hypertensive. Metoprolol ER was increased from 25mg daily to 50mg daily Continue lisinopril 20mg daily Continue Hydralazine 10 mg every 4 hours prn if needed (3) Pneumonia: Per pulmonology notes possible pneumonia. CT scan of chest showed bilateral lower lobe atelectasis vs. pneumonia. White blood cell count is within normal limits and has been afebrile. Pulmonology d/c'd Vanco but initialy continued Zosyn. Now off all antibiotics Repeat CXR showed pulmonary edema Lasix 20 mg IV daily added prior to transfer to hospitalist service - Constitutional Vitals: Temp Pulse Resp BP Pulse Ox 96.9 F L 81 18 161/84 93 05/25/17 08:21 05/25/17 09:04 05/25/17 09:04 05/25/17 09:04 05/25/17 09:04 General appearance: Present: A&O X 3, pleasant, no acute distress, answers questions appropriately - Head Head exam: Present: atraumatic, normocephalic - Eye Eye exam: Present: PERRL, conjuntiva pink, sclera anicteric Pupils: Present: PERRL - Neck Neck exam general surgery: Present: supple, trachea midline. Absent: lymphadenopathy - Respiratory Respiratory exam: Present: CTAB. Absent: accessory muscle use, rales, rhonchi, wheezes - Cardiovascular Cardiovascular exam: Present: +S1, +S2. Absent: diastolic murmur, gallop, rubs , systolic murmur - GI/Abdominal GI/Abdominal exam: Present: normal bowel sounds, soft, no peritoneal signs. Absent: distended, tenderness - Extremities Exam Extremities exam: Present: warm, radial pulses palpable and symmetrical. Absent : calf tenderness, cyanotic, pedal edema - Neurological Exam Neurological exam: Present: CN II-XII intact, oriented X3, no focal deficits. Absent: pronater drift, facial droop, speech deficit - Psychiatric Psychiatric exam: Present: agitated - Skin Skin exam: Present: dry, intact Internal Medicine: Result - Labs CBC & Chem 7: 05/25/17 03:24 05/25/17 03:24 Labs: Short CBC 05/25/17 Range/Units 03:24 WBC 4.6 (4.3-11.1) K/mcL Hgb 10.9 L (11.5-15.4) g/dL Hct 33.8 L (35.3-44.9) % Plt Count 153 (140-400) K/mcL Neutrophils # 2.9 (1.6-8.9) K/mcL BMP 05/25/17 03:24 Sodium 147 H Potassium 3.1 L Chloride 109 H Carbon Dioxide 28 BUN 17 Creatinine 0.78 Glucose 101 Calcium 9.9 - ABG Interpretation ABG results: PT/INR, D-dimer PT 10.8 Seconds (9.4-12.1) 05/19/17 20:57 - Impressions Impressions Chest X-Ray 05/22/17 11:35 IMPRESSION: New, small bilateral pleural effusions, worse on the right than the left. Interstitial opacities are similar to prior and may reflect interstitial edema. D/ / 05/22/2017 13:26:35 Omar Roberson MD / shauna Interpreting Provider: Omar Roberson MD - VTE Documentation of Mechanical Device: Intermittent pneumatic compression device Consult Discharge Plan - Plan Referrals: Chris Lazaro MD [Primary Care Provider] -
[2017-05-25] MEDS: Acetaminophen 325 MG TABLET PO PRN (18:03)
[2017-05-25] MEDS: Melatonin 3 MG TABLET PO SCH (20:08)
[2017-05-25] MEDS: Mirtazapine 15 MG TABLET PO SCH (20:08)
[2017-05-26 04:58] LABS: Basophils % 0.2 %; Eosinophils # 0.2 K/mcL (0.0-0.6); Eosinophils % 3.9 %; Hematocrit 33.5 % (35.3-44.9); Hemoglobin 10.8 g/dL (11.5-15.4); Immature Granulocytes % 0.7 % (0-4); Lymphocytes # 1.2 K/mcL (0.6-4.6); Lymphocytes % 29.7 %; Mean Corpuscular HGB Conc 32.2 g/dL (31.6-35.5); Mean Corpuscular Hemoglobin 28.3 pg (28.0-33.3); Mean Corpuscular Volume 87.7 fL (83.0-100.0); Mean Platelet Volume 10.3 fL (9.4-12.4); Monocytes # 0.4 K/mcL (0.0-1.3); Monocytes % 9.1 %; Neutrophils # 2.3 K/mcL (1.6-8.9); Platelet Count 165 K/mcL (140-400); Red Blood Count 3.82 M/mcL (3.82-4.97); Red Cell Distribution Width 14.6 % (11.5-14.5); Segmented Neutrophils % 56.4 %
[2017-05-26] MEDS: *HR* Heparin 5,000 UNIT/ML VIAL SQ SCH ×2 (05:01→16:58)
[2017-05-26 05:13] LABS: BUN/Creatinine Ratio 23 (6-26); Blood Urea Nitrogen 19 mg/dL (8-23); Calcium 9.9 mg/dL (8.6-10.3); Carbon Dioxide 27 mEq/L (23-29); Chloride 111 mEq/L (98-107); Glucose 104 mg/dL (70-105); Osmolality,Calculated 305 (280-300); Potassium 3.6 mEq/L (3.5-5.1); Sodium 146 mEq/L (136-145); eGFR For African Americans > 60 (> 60); eGFR For Non-African Americans > 60 (> 60)
[2017-05-26] MEDS: Aspirin 81 MG TAB.CHEW PO SCH (08:44)
[2017-05-26] MEDS: Metoprolol XL (24 HR) Succ 25 MG TAB.ER.24H PO SCH (08:44)
[2017-05-26] MEDS: Lisinopril 20 MG TABLET PO SCH (08:44)
[2017-05-26] MEDS: Gabapentin 100 MG CAPSULE PO SCH ×3 (08:44→21:19)
[2017-05-26] MEDS: Acetaminophen 325 MG TABLET PO PRN (09:12)
--- NOTE | 2017-05-26 11:18 | Internal Med Progress Note ---
Date of Encounter: 05/26/17 Time of Encounter: 11:14 - Subjective Interval history: Interval changes: 05/24/2017: A-Fib rate controlled with Metoprolol Hypertensive now Breathing improved Off abx now 05/25/2017: Rate controlled Hgb stable since admission Assessment and Plan (1) Atrial flutter with rapid ventricular response Cardiology following Cardizem caused hypotension and was d/c'd Then started on Amiodarone gtt In SR now and Amiodaron gtt d/c'd. Toprol XL started and dose was increased from 25 to 50mg daily. TTE unrevealing [id number] is 4 (Age, HTN, Female). High CVA risk. However, hemoccult positive and high falls risk given her dementia so not on A/ C. Cardiology recommending at least 81mg ASA daily if felt safe from primary team. (Hgb stable still) We considered starting Eliquis/Xarelto and monitoring Hgb prior to discharge; however, Elderly with dementia and fall risk + recent (+) FOBT (HAS-Bled score 2 ). When asked how many times she's fallen recently she stated"far to many" Her risk of a catastrophic bleed associated with a fall on A/C far outweighs the benefit of stroke prophylaxis therefore we will discharge on aspirin only. (2) Hypotension Per Pulmonoly notes: "Hypotensive in ED, refractory to initial fluid resuscitation; CVC placed and pressers given initially. Possible cause being polypharmacy as patient recently started on Cardizem along with metoprolol and lisinopril." Pressoes weaned off Currently hypertensive. Metoprolol ER was increased from 25mg daily to 50mg daily Continue lisinopril 20mg daily Continue Hydralazine 10 mg every 4 hours prn if needed (3) Pneumonia: Per pulmonology notes possible pneumonia. CT scan of chest showed bilateral lower lobe atelectasis vs. pneumonia. White blood cell count is within normal limits and has been afebrile. Pulmonology d/c'd Vanco but initialy continued Zosyn. Now off all antibiotics Repeat CXR showed pulmonary edema Lasix 20 mg IV daily added prior to transfer to hospitalist service (4) Weakness and debilitation: PT/OT ordered - Constitutional Vitals: Temp Pulse Resp BP Pulse Ox 98.7 F 80 16 163/77 93 05/26/17 07:31 05/26/17 07:31 05/26/17 07:31 05/26/17 07:31 05/26/17 07:31 General appearance: Present: A&O X 3, pleasant, no acute distress, answers questions appropriately - Head Head exam: Present: atraumatic, normocephalic - Eye Eye exam: Present: PERRL, conjuntiva pink, sclera anicteric Pupils: Present: PERRL - Neck Neck exam general surgery: Present: supple, trachea midline. Absent: lymphadenopathy - Respiratory Respiratory exam: Present: CTAB. Absent: accessory muscle use, rales, rhonchi, wheezes - Cardiovascular Cardiovascular exam: Present: RRR, +S1, +S2. Absent: diastolic murmur, gallop, rubs, systolic murmur - GI/Abdominal GI/Abdominal exam: Present: normal bowel sounds, soft, no peritoneal signs. Absent: distended, tenderness - Extremities Exam Extremities exam: Present: calf tenderness, warm, radial pulses palpable and symmetrical. Absent: cyanotic, pedal edema - Neurological Exam Neurological exam: Present: CN II-XII intact, oriented X3, no focal deficits. Absent: pronater drift, facial droop, speech deficit - Skin Skin exam: Present: dry, intact Internal Medicine: Result - Labs CBC & Chem 7: 05/26/17 04:10 05/26/17 04:10 Labs: Short CBC 05/26/17 Range/Units 04:10 WBC 4.1 L (4.3-11.1) K/mcL Hgb 10.8 L (11.5-15.4) g/dL Hct 33.5 L (35.3-44.9) % Plt Count 165 (140-400) K/mcL Neutrophils # 2.3 (1.6-8.9) K/mcL BMP 05/26/17 04:10 Sodium 146 H Potassium 3.6 Chloride 111 H Carbon Dioxide 27 BUN 19 Creatinine 0.83 Glucose 104 Calcium 9.9 - ABG Interpretation ABG results: PT/INR, D-dimer PT 10.8 Seconds (9.4-12.1) 05/19/17 20:57 - VTE Documentation of Mechanical Device: Intermittent pneumatic compression device Consult Discharge Plan - Plan Referrals: Chris Lazaro MD [Primary Care Provider] -
[2017-05-26] MEDS: Melatonin 3 MG TABLET PO SCH (21:19)
[2017-05-26] MEDS: Mirtazapine 15 MG TABLET PO SCH (21:19)
[2017-05-26] MEDS: Ondansetron 4 MG/2 ML VIAL IVP PRN (21:25)
[2017-05-27 04:06] LABS: Basophils % 0.2 %; Eosinophils # 0.1 K/mcL (0.0-0.6); Eosinophils % 3.4 %; Hematocrit 33.9 % (35.3-44.9); Hemoglobin 10.4 g/dL (11.5-15.4); Immature Granulocytes % 0.7 % (0-4); Lymphocytes # 1.4 K/mcL (0.6-4.6); Lymphocytes % 33.8 %; Mean Corpuscular HGB Conc 30.7 g/dL (31.6-35.5); Mean Corpuscular Hemoglobin 27.9 pg (28.0-33.3); Mean Corpuscular Volume 90.9 fL (83.0-100.0); Mean Platelet Volume 9.6 fL (9.4-12.4); Monocytes # 0.4 K/mcL (0.0-1.3); Monocytes % 9.8 %; Neutrophils # 2.1 K/mcL (1.6-8.9); Platelet Count 160 K/mcL (140-400); Red Blood Count 3.73 M/mcL (3.82-4.97); Red Cell Distribution Width 14.5 % (11.5-14.5); Segmented Neutrophils % 52.1 %
[2017-05-27 04:26] LABS: BUN/Creatinine Ratio 24 (6-26); Blood Urea Nitrogen 22 mg/dL (8-23); Calcium 9.3 mg/dL (8.6-10.3); Carbon Dioxide 31 mEq/L (23-29); Chloride 110 mEq/L (98-107); Glucose 96 mg/dL (70-105); Osmolality,Calculated 303 (280-300); Sodium 145 mEq/L (136-145); eGFR For African Americans > 60 (> 60); eGFR For Non-African Americans 58 (> 60)
[2017-05-27] MEDS: *HR* Heparin 5,000 UNIT/ML VIAL SQ SCH ×2 (06:05→17:07)
[2017-05-27] MEDS: Gabapentin 100 MG CAPSULE PO SCH ×3 (08:47→21:07)
[2017-05-27] MEDS: Metoprolol XL (24 HR) Succ 25 MG TAB.ER.24H PO SCH (08:47)
[2017-05-27] MEDS: Lisinopril 20 MG TABLET PO SCH (08:47)
[2017-05-27] MEDS: Aspirin 81 MG TAB.CHEW PO SCH (08:47)
[2017-05-27] MEDS: Acetaminophen 325 MG TABLET PO PRN (13:56)
--- NOTE | 2017-05-27 15:56 | Internal Med Progress Note ---
Date of Encounter: 05/27/17 Time of Encounter: 15:56 - Subjective Interval history: Interval changes: 05/24/2017: A-Fib rate controlled with Metoprolol Hypertensive now Breathing improved Off abx now 05/25/2017: Rate controlled Hgb stable since admission PT/OT ordered to evaluate rehab needs 05/26/2017: Rate controlled Hgb stable since admission PT/OT recommended inpat. rehab 05/27/2017: Rate controlled Hgb stable since admission Waiting for rehab placement Assessment and Plan (1) Atrial flutter with rapid ventricular response Cardiology following Cardizem caused hypotension and was d/c'd Then started on Amiodarone gtt In SR now and Amiodaron gtt d/c'd. Toprol XL started and dose was increased from 25 to 50mg daily. TTE unrevealing [id number] is 4 (Age, HTN, Female). High CVA risk. However, hemoccult positive and high falls risk given her dementia so not on A/ C. Cardiology recommending at least 81mg ASA daily if felt safe from primary team. (Hgb stable still) We considered starting Eliquis/Xarelto and monitoring Hgb prior to discharge; however, Elderly with dementia and fall risk + recent (+) FOBT (HAS-Bled score 2 ). When asked how many times she's fallen recently she stated"far to many" Her risk of a catastrophic bleed associated with a fall on A/C far outweighs the benefit of stroke prophylaxis therefore we will discharge on aspirin only. (2) Hypotension Per Pulmonoly notes: "Hypotensive in ED, refractory to initial fluid resuscitation; CVC placed and pressers given initially. Possible cause being polypharmacy as patient recently started on Cardizem along with metoprolol and lisinopril." Pressoes weaned off Currently hypertensive. Metoprolol ER was increased from 25mg daily to 50mg daily Continue lisinopril 20mg daily Continue Hydralazine 10 mg every 4 hours prn if needed (3) Pneumonia: Per pulmonology notes possible pneumonia. CT scan of chest showed bilateral lower lobe atelectasis vs. pneumonia. White blood cell count is within normal limits and has been afebrile. Pulmonology d/c'd Vanco but initialy continued Zosyn. Now off all antibiotics Repeat CXR showed pulmonary edema Lasix 20 mg IV daily added prior to transfer to hospitalist service (4) Weakness and debilitation: PT/OT ordered - Constitutional Vitals: Temp Pulse Resp BP Pulse Ox 98.3 F 68 17 120/44 95 05/27/17 15:18 05/27/17 15:18 05/27/17 15:18 05/27/17 15:18 05/27/17 15:18 General appearance: Present: A&O X 3, pleasant, no acute distress, answers questions appropriately - Head Head exam: Present: atraumatic, normocephalic - Eye Eye exam: Present: PERRL, conjuntiva pink, sclera anicteric Pupils: Present: PERRL - Neck Neck exam general surgery: Present: supple, trachea midline. Absent: lymphadenopathy - Respiratory Respiratory exam: Present: CTAB. Absent: accessory muscle use, rales, rhonchi, wheezes - Cardiovascular Cardiovascular exam: Present: RRR, +S1, +S2. Absent: diastolic murmur, gallop, rubs, systolic murmur - GI/Abdominal GI/Abdominal exam: Present: normal bowel sounds, soft, no peritoneal signs. Absent: distended, tenderness - Extremities Exam Extremities exam: Present: pedal edema, warm, radial pulses palpable and symmetrical. Absent: calf tenderness, cyanotic - Neurological Exam Neurological exam: Present: CN II-XII intact, oriented X3, no focal deficits. Absent: pronater drift, facial droop, speech deficit - Skin Skin exam: Present: dry, intact Internal Medicine: Result - Labs CBC & Chem 7: 05/27/17 03:50 05/27/17 03:50 Labs: Short CBC 05/27/17 Range/Units 03:50 WBC 4.1 L (4.3-11.1) K/mcL Hgb 10.4 L (11.5-15.4) g/dL Hct 33.9 L (35.3-44.9) % Plt Count 160 (140-400) K/mcL Neutrophils # 2.1 (1.6-8.9) K/mcL BMP 05/27/17 03:50 Sodium 145 Potassium 4.0 Chloride 110 H Carbon Dioxide 31 H BUN 22 Creatinine 0.93 Glucose 96 Calcium 9.3 - ABG Interpretation ABG results: PT/INR, D-dimer PT 10.8 Seconds (9.4-12.1) 05/19/17 20:57 - VTE Documentation of Mechanical Device: Intermittent pneumatic compression device Consult Discharge Plan - Plan Referrals: Chris Lazaro MD [Primary Care Provider] -
[2017-05-27] MEDS: Melatonin 3 MG TABLET PO SCH (21:07)
[2017-05-27] MEDS: Mirtazapine 15 MG TABLET PO SCH (21:07)
[2017-05-28 04:30] LABS: Basophils % 0.3 %; Eosinophils # 0.2 K/mcL (0.0-0.6); Hemoglobin 10.6 g/dL (11.5-15.4); Immature Granulocytes % 0.8 % (0-4); Lymphocytes # 1.3 K/mcL (0.6-4.6); Lymphocytes % 32.2 %; Mean Corpuscular HGB Conc 30.3 g/dL (31.6-35.5); Mean Corpuscular Volume 92.3 fL (83.0-100.0); Mean Platelet Volume 10.4 fL (9.4-12.4); Monocytes # 0.4 K/mcL (0.0-1.3); Monocytes % 9.6 %; Neutrophils # 2.1 K/mcL (1.6-8.9); Platelet Count 184 K/mcL (140-400); Red Blood Count 3.79 M/mcL (3.82-4.97); Red Cell Distribution Width 14.3 % (11.5-14.5); Segmented Neutrophils % 53.1 %
[2017-05-28] MEDS: *HR* Heparin 5,000 UNIT/ML VIAL SQ SCH ×2 (05:17→16:56)
[2017-05-28 06:16] LABS: BUN/Creatinine Ratio 21 (6-26); Blood Urea Nitrogen 21 mg/dL (8-23); Carbon Dioxide 30 mEq/L (23-29); Chloride 107 mEq/L (98-107); Glucose 89 mg/dL (70-105); Osmolality,Calculated 298 (280-300); Potassium 4.1 mEq/L (3.5-5.1); Sodium 143 mEq/L (136-145); eGFR For African Americans > 60 (> 60); eGFR For Non-African Americans 55 (> 60)
[2017-05-28] MEDS: Ketorolac 15 MG/ML VIAL IVP PRN (07:27)
[2017-05-28] MEDS: Lisinopril 20 MG TABLET PO SCH (08:31)
[2017-05-28] MEDS: Metoprolol XL (24 HR) Succ 25 MG TAB.ER.24H PO SCH (08:31)
[2017-05-28] MEDS: Gabapentin 100 MG CAPSULE PO SCH ×3 (08:31→20:52)
[2017-05-28] MEDS: Aspirin 81 MG TAB.CHEW PO SCH (08:32)
[2017-05-28] MEDS: Ondansetron 4 MG/2 ML VIAL IVP PRN (13:19)
--- NOTE | 2017-05-28 16:10 | Internal Med Progress Note ---
Date of Encounter: 05/28/17 Time of Encounter: 16:10 - Subjective Interval history: Interval changes: 05/24/2017: A-Fib rate controlled with Metoprolol Hypertensive now Breathing improved Off abx now 05/25/2017: Rate controlled Hgb stable since admission PT/OT ordered to evaluate rehab needs 05/26/2017: Rate controlled Hgb stable since admission PT/OT recommended inpat. rehab 05/27/2017: Rate controlled Hgb stable since admission Waiting for rehab placement 05/28/2017: Very alert and lucid today Hgb still stable In NSR No SOB Ready to be discharged Assessment and Plan (1) Atrial flutter with rapid ventricular response Cardiology following Cardizem caused hypotension and was d/c'd Then started on Amiodarone gtt In SR now and Amiodaron gtt d/c'd. Toprol XL started and dose was increased from 25 to 50mg daily. TTE unrevealing [id number] is 4 (Age, HTN, Female). High CVA risk. However, hemoccult positive and high falls risk given her dementia so not on A/ C. Cardiology recommending at least 81mg ASA daily if felt safe from primary team. (Hgb stable still) We considered starting Eliquis/Xarelto and monitoring Hgb prior to discharge; however, Elderly with dementia and fall risk + recent (+) FOBT (HAS-Bled score 2 ). When asked how many times she's fallen recently she stated"far to many" Her risk of a catastrophic bleed associated with a fall on A/C far outweighs the benefit of stroke prophylaxis therefore we will discharge on aspirin only. (2) Hypotension Per Pulmonoly notes: "Hypotensive in ED, refractory to initial fluid resuscitation; CVC placed and pressers given initially. Possible cause being polypharmacy as patient recently started on Cardizem along with metoprolol and lisinopril." Pressoes weaned off Currently hypertensive. Metoprolol ER was increased from 25mg daily to 50mg daily Continue lisinopril 20mg daily Continue Hydralazine 10 mg every 4 hours prn if needed (3) Pneumonia: Per pulmonology notes possible pneumonia. CT scan of chest showed bilateral lower lobe atelectasis vs. pneumonia. White blood cell count is within normal limits and has been afebrile. Pulmonology d/c'd Vanco but initialy continued Zosyn. Now off all antibiotics Repeat CXR showed pulmonary edema Lasix 20 mg IV daily added prior to transfer to hospitalist service (4) Weakness and debilitation: PT/OT ordered - Constitutional Vitals: Temp Pulse Resp BP Pulse Ox 98.1 F 69 16 114/54 92 05/28/17 07:46 05/28/17 07:46 05/28/17 07:46 05/28/17 07:46 05/28/17 07:46 General appearance: Present: A&O X 3, pleasant, no acute distress, answers questions appropriately - Head Head exam: Present: atraumatic, normocephalic - Eye Eye exam: Present: EOMI, PERRL, conjuntiva pink, sclera anicteric - Neck Neck exam general surgery: Absent: lymphadenopathy, supple, trachea midline - Respiratory Respiratory exam: Present: CTAB - Cardiovascular Cardiovascular exam: Present: RRR, +S1, +S2 - GI/Abdominal GI/Abdominal exam: Present: normal bowel sounds, soft, no peritoneal signs. Absent: distended, firm, guarding, hyperactive bowel sounds, hypoactive bowel sounds, tenderness - Neurological Exam Neurological exam: Present: CN II-XII intact, oriented X3. Absent: facial droop , speech deficit - Psychiatric Psychiatric exam: Present: normal affect, normal mood - Skin Skin exam: Present: dry, intact, warm Internal Medicine: Result - Labs CBC & Chem 7: 05/28/17 03:08 05/28/17 03:08 Labs: Short CBC 05/28/17 Range/Units 03:08 WBC 4.0 L (4.3-11.1) K/mcL Hgb 10.6 L (11.5-15.4) g/dL Hct 35.0 L (35.3-44.9) % Plt Count 184 (140-400) K/mcL Neutrophils # 2.1 (1.6-8.9) K/mcL BMP 05/28/17 03:08 Sodium 143 Potassium 4.1 Chloride 107 Carbon Dioxide 30 H BUN 21 Creatinine 0.98 Glucose 89 Calcium 9.0 - ABG Interpretation ABG results: PT/INR, D-dimer PT 10.8 Seconds (9.4-12.1) 05/19/17 20:57 - VTE Documentation of Mechanical Device: Intermittent pneumatic compression device Consult Discharge Plan - Plan Referrals: Chris Lazaro MD [Primary Care Provider] -
[2017-05-28] MEDS ORDERED: Ondansetron 4 MG/2 ML VIAL IVP PRN (20:29)
[2017-05-28] MEDS ORDERED: 0.9 % Sodium Chloride 250 ML IVC ONE (20:29)
[2017-05-28] MEDS: Melatonin 3 MG TABLET PO SCH (20:52)
[2017-05-28] MEDS: Mirtazapine 15 MG TABLET PO SCH (20:53)
[2017-05-29] MEDS: *HR* Heparin 5,000 UNIT/ML VIAL SQ SCH ×2 (05:25→18:13)
[2017-05-29 07:04] LABS: Basophils % 0.5 %; Eosinophils # 0.1 K/mcL (0.0-0.6); Eosinophils % 2.2 %; Hemoglobin 11.2 g/dL (11.5-15.4); Immature Granulocytes % 0.6 % (0-4); Lymphocytes # 1.5 K/mcL (0.6-4.6); Lymphocytes % 23.7 %; Mean Corpuscular HGB Conc 30.3 g/dL (31.6-35.5); Mean Corpuscular Hemoglobin 28.1 pg (28.0-33.3); Mean Corpuscular Volume 92.7 fL (83.0-100.0); Mean Platelet Volume 10.7 fL (9.4-12.4); Monocytes # 0.4 K/mcL (0.0-1.3); Monocytes % 6.7 %; Platelet Count 215 K/mcL (140-400); Red Blood Count 3.99 M/mcL (3.82-4.97); Red Cell Distribution Width 14.4 % (11.5-14.5); Segmented Neutrophils % 66.3 %
[2017-05-29 07:05] LABS: Neutrophils # 4.2 K/mcL (1.6-8.9)
[2017-05-29 07:25] LABS: BUN/Creatinine Ratio 22 (6-26); Blood Urea Nitrogen 24 mg/dL (8-23); Calcium 9.7 mg/dL (8.6-10.3); Carbon Dioxide 30 mEq/L (23-29); Chloride 106 mEq/L (98-107); Glucose 89 mg/dL (70-105); Osmolality,Calculated 296 (280-300); Potassium 4.6 mEq/L (3.5-5.1); Sodium 141 mEq/L (136-145); eGFR For African Americans > 60 (> 60); eGFR For Non-African Americans 50 (> 60)
[2017-05-29] MEDS: Ketorolac 15 MG/ML VIAL IVP PRN (09:21)
[2017-05-29] MEDS: Metoprolol XL (24 HR) Succ 25 MG TAB.ER.24H PO SCH (09:21)
[2017-05-29] MEDS: Aspirin 81 MG TAB.CHEW PO SCH (09:21)
[2017-05-29] MEDS: Gabapentin 100 MG CAPSULE PO SCH ×3 (09:21→21:31)
[2017-05-29] MEDS: Lisinopril 20 MG TABLET PO SCH (09:23)
[2017-05-29] MEDS: Acetaminophen 325 MG TABLET PO PRN ×2 (14:56→21:35)
--- NOTE | 2017-05-29 16:42 | Internal Med Progress Note ---
Date of Encounter: 05/29/17 Time of Encounter: 16:42 - Subjective Interval history: Interval changes: 05/24/2017: A-Fib rate controlled with Metoprolol Hypertensive now Breathing improved Off abx now 05/25/2017: Rate controlled Hgb stable since admission PT/OT ordered to evaluate rehab needs 05/26/2017: Rate controlled Hgb stable since admission PT/OT recommended inpat. rehab 05/27/2017: Rate controlled Hgb stable since admission Waiting for rehab placement 05/28/2017: Very alert and lucid today Hgb still stable In NSR No SOB Ready to be discharged 05/29/2017: No new changes Still waiting for placement Still in NSR Assessment and Plan (1) Atrial flutter with rapid ventricular response Cardiology following Cardizem caused hypotension and was d/c'd Then started on Amiodarone gtt In SR now and Amiodaron gtt d/c'd. Toprol XL started and dose was increased from 25 to 50mg daily. TTE unrevealing [id number] is 4 (Age, HTN, Female). High CVA risk. However, hemoccult positive and high falls risk given her dementia so not on A/C . Cardiology recommending at least 81mg ASA daily if felt safe from primary team. (Hgb stable still) We considered starting Eliquis/Xarelto and monitoring Hgb prior to discharge; however, Elderly with dementia and fall risk + recent (+) FOBT (HAS-Bled score 2 ). When asked how many times she's fallen recently she stated"far to many" Her risk of a catastrophic bleed associated with a fall on A/C far outweighs the benefit of stroke prophylaxis therefore we will discharge on aspirin only. (2) Hypotension Per Pulmonoly notes: "Hypotensive in ED, refractory to initial fluid resuscitation; CVC placed and pressers given initially. Possible cause being polypharmacy as patient recently started on Cardizem along with metoprolol and lisinopril." Pressoes weaned off Currently hypertensive. Metoprolol ER was increased from 25mg daily to 50mg daily Continue lisinopril 20mg daily Continue Hydralazine 10 mg every 4 hours prn if needed (3) Pneumonia: Per pulmonology notes possible pneumonia. CT scan of chest showed bilateral lower lobe atelectasis vs. pneumonia. White blood cell count is within normal limits and has been afebrile. Pulmonology d/c'd Vanco but initialy continued Zosyn. Now off all antibiotics Repeat CXR showed pulmonary edema Lasix 20 mg IV daily added prior to transfer to hospitalist service (4) Weakness and debilitation: PT/OT ordered - Constitutional Vitals: Temp Pulse Resp BP Pulse Ox 98.4 F 75 16 111/58 92 05/29/17 15:37 05/29/17 15:37 05/29/17 15:37 05/29/17 15:37 05/29/17 15:37 General appearance: Present: A&O X 3, pleasant, no acute distress, answers questions appropriately - Head Head exam: Present: atraumatic, normocephalic - Eye Eye exam: Present: PERRL, conjuntiva pink, sclera anicteric Pupils: Present: PERRL - Neck Neck exam general surgery: Present: supple, trachea midline. Absent: lymphadenopathy - Respiratory Respiratory exam: Present: CTAB. Absent: accessory muscle use, rales, rhonchi, wheezes - Cardiovascular Cardiovascular exam: Present: RRR, +S1, +S2. Absent: diastolic murmur, gallop, rubs, systolic murmur - GI/Abdominal GI/Abdominal exam: Present: normal bowel sounds, soft, no peritoneal signs. Absent: distended, tenderness - Extremities Exam Extremities exam: Present: warm, radial pulses palpable and symmetrical. Absent : calf tenderness, cyanotic, pedal edema - Neurological Exam Neurological exam: Present: CN II-XII intact, oriented X3, no focal deficits. Absent: pronater drift, facial droop, speech deficit - Skin Skin exam: Present: dry, intact Internal Medicine: Result - Labs CBC & Chem 7: 05/29/17 06:29 05/29/17 06:29 Labs: Short CBC 05/29/17 Range/Units 06:29 WBC 6.3 D (4.3-11.1) K/mcL Hgb 11.2 L (11.5-15.4) g/dL Hct 37.0 (35.3-44.9) % Plt Count 215 (140-400) K/mcL Neutrophils # 4.2 (1.6-8.9) K/mcL BMP 05/29/17 06:29 Sodium 141 Potassium 4.6 Chloride 106 Carbon Dioxide 30 H BUN 24 H Creatinine 1.07 Glucose 89 Calcium 9.7 - ABG Interpretation ABG results: PT/INR, D-dimer PT 10.8 Seconds (9.4-12.1) 05/19/17 20:57 - VTE Documentation of Mechanical Device: Intermittent pneumatic compression device Consult Discharge Plan - Plan Referrals: Chris Lazaro MD [Primary Care Provider] -
[2017-05-29] MEDS: Mirtazapine 15 MG TABLET PO SCH (21:31)
[2017-05-29] MEDS: Melatonin 3 MG TABLET PO SCH (21:32)
[2017-05-30] MEDS: *HR* Heparin 5,000 UNIT/ML VIAL SQ SCH ×2 (05:15→18:52)
[2017-05-30] MEDS: Acetaminophen 325 MG TABLET PO PRN ×3 (05:18→20:35)
[2017-05-30 06:39] LABS: Basophils % 0.3 %; Eosinophils # 0.2 K/mcL (0.0-0.6); Eosinophils % 2.3 %; Hematocrit 35.5 % (35.3-44.9); Immature Granulocytes % 0.5 % (0-4); Lymphocytes # 1.6 K/mcL (0.6-4.6); Mean Corpuscular Hemoglobin 28.1 pg (28.0-33.3); Mean Corpuscular Volume 90.8 fL (83.0-100.0); Mean Platelet Volume 10.5 fL (9.4-12.4); Monocytes # 0.4 K/mcL (0.0-1.3); Monocytes % 5.7 %; Neutrophils # 5.3 K/mcL (1.6-8.9); Platelet Count 206 K/mcL (140-400); Red Blood Count 3.91 M/mcL (3.82-4.97); Red Cell Distribution Width 14.5 % (11.5-14.5); Segmented Neutrophils % 70.2 %
[2017-05-30 06:54] LABS: BUN/Creatinine Ratio 27 (6-26); Blood Urea Nitrogen 26 mg/dL (8-23); Calcium 9.6 mg/dL (8.6-10.3); Carbon Dioxide 29 mEq/L (23-29); Chloride 107 mEq/L (98-107); Glucose 81 mg/dL (70-105); Osmolality,Calculated 298 (280-300); Potassium 4.8 mEq/L (3.5-5.1); Sodium 142 mEq/L (136-145); eGFR For African Americans > 60 (> 60); eGFR For Non-African Americans 56 (> 60)
--- NOTE | 2017-05-30 07:52 | Discharge Summary ---
<JacobantonietaAdrien pinon - Last Filed: 05/30/17 09:28> Date of Encounter: 05/30/17 Time of Encounter: 07:45 - Discharge Diagnosis (1) Pneumonia Priority: Primary Status: Suspected Qualifiers: Pneumonia type: due to unspecified organism Laterality: bilateral Lung location: lower lobe of lung Qualified Code(s): J18.1 - Lobar pneumonia, unspecified organism (2) Acute renal failure Priority: Primary Status: Resolved Qualifiers: Acute renal failure type: unspecified Qualified Code(s): N17.9 - Acute kidney failure, unspecified (3) Atrial flutter with rapid ventricular response Priority: Primary Status: Resolved (4) Dementia Priority: Primary Status: Chronic Qualifiers: Dementia type: unspecified type Dementia behavioral disturbance: with behavioral disturbance Qualified Code(s): F03.91 - Unspecified dementia with behavioral disturbance (5) UTI (urinary tract infection) Priority: Primary Status: Resolved Qualifiers: Urinary tract infection type: acute cystitis Hematuria presence: without hematuria Qualified Code(s): N30.00 - Acute cystitis without hematuria (6) Hypotension Priority: Primary Status: Resolved Qualifiers: Hypotension type: unspecified hypotension type Qualified Code(s): I95.9 - Hypotension, unspecified Hospital course: Ms. Tolliver is a 76 year old female with history of hypertension, dementia, paroxysmal A. fib, [facility] for [facility]. Patient was found to be hypotensive on arrival. Was transferred to ICU since blood pressure was not improving with fluids. Patient had A-fib RVR on arrival. CT of the chest showed PNA and UA was suggestive of UTI. Patient also had ARF. Patient completed 5 days of zosyn for ABX. Patients Atrial flutter treated with Cardizem and then discontinued due to hypotension. Space patient with a started on amiodarone drip then became normal sinus rhythm and then amiodarone drip drip discontinued. patients Toprol was increased from 25-50 mg daily. [id number] is 4. considered starting Eliquis/Xarelto and monitoring Hgb prior to discharge; however, Elderly with dementia and fall risk + recent (+) FOBT ( HAS-Bled score 2). Her risk of a catastrophic bleed associated with a fall on A /C far outweighs the benefit of stroke prophylaxis therefore we will discharge on aspirin only. Hypotension was due to polypharmacy. Patient has currently been hypertensive. Currently on 50 mg metoprolol, 20 mg Lisinopril. Patient currently off all antibiotics for pneumonia. Repeat chest x-ray showed pulmonary edema. Lasix 20 mg IV daily was added. Current labs show white blood cell count 7.5, hemoglobin of 11. Chem panel seems normal. Creatinine level of 0.97. Good output of -300 mL. Vital signs show patient afebrile, pulse rate 63, respiratory rate 15, normotensive at 121/54, 97% oxygen on 2 L nasal cannula. When seen today patient was only complaining of a minor headache. She denies any fever, chills, nausea, vomiting, shortness of breath, cough, abdominal pain, hematuria, dysuria, diarrhea, constipation, hematochezia. Patient to be discharged to a nursing home facility. - Time Spent with Patient Total time spent providing and/or coordinating discharge services: Greater than 30 minutes - Discharge Medications Home Medications: Acetaminophen [Tylenol Arthritis] 650 mg PO Q8H PRN 03/09/17 [History] Amitriptyline [Elavil] 25 mg PO HS 03/09/17 [History] Cholecalciferol (Vitamin D3) [Vitamin D3] 5,000 unit PO DAILY 03/09/17 [History] Duloxetine HCl [Cymbalta] 60 mg PO HS 03/09/17 [History] Gabapentin [Neurontin] 100 mg PO TID 03/09/17 [History] Lisinopril [Zestril] 20 mg PO DAILY 03/09/17 [History] Loperamide HCl [Anti-Diarrheal] 2 mg PO Q4H PRN 03/09/17 [History] Mag Hydrox/Al Hydrox/Simeth [Antacid Suspension] 30 ml PO Q4H PRN 03/09/17 [ History] Metoprolol Succinate 25 mg PO DAILY 03/09/17 [History] Mirtazapine 7.5 mg PO HS 03/09/17 [History] Omeprazole [PriLOSEC] 20 mg PO DAILY 03/09/17 [History] Venlafaxine HCl [Venlafaxine HCl ER] 37.5 mg PO BID 03/09/17 [History] Vitamin B Complex [B Complex] 1 each PO DAILY 03/09/17 [History] traZODone [TraZODone] 75 mg PO HS 03/09/17 [History] Aspirin 81 mg PO DAILY tab.chew 03/16/17 [Rx] dilTIAZem HCl [Diltiazem 24Hr Cd] 120 mg PO DAILY 05/20/17 [History] Allergies/Adverse Reactions: 3 Allergy/AdvReac Type Severity Reaction Status Date / Time diltiazem [From Cardizem] Allergy Agitated Verified 05/20/17 12:31 morphine AdvReac Agitated Verified 05/20/17 12:31 pregabalin [From Lyrica] AdvReac Agitated Verified 05/20/17 12:31 Date of admission: 05/20/17 04:26 Primary care physician: Chris Lazaro MD Consults: 05/20/17 05:20 Consult to Pulmonology [CONS] Routine Consulting Provider: Pulm Crit Care [facility] Sleep [facility] Reason for Consult: Hypotension, ASHTYN Call Completed: Yes 05/23/17 08:26 Consult to Cardiology [CONS] Routine Comment: Consulting Provider: Cardiology Carlene Reason for Consult: recommendations for home meds for afib Time Notified: 08:27 Call Completed: Yes 05/26/17 11:29 Consult to Occupational Therapy [CONS] Routine Comment: Evaluate, develop and implement POC Reason for Consult: Evaluate rehab needs Does patient have active BEDREST order?: No Is patient medically & hemodynamically stable?: Yes Patient assessed for mobility or mobilized this visit?: No Consult to Physical Therapy [CONS] Routine Comment: Evaluate, develop and implement POC Reason for Consult: [facility] rehab needs (balance, coordination) Does patient have active BEDREST order?: No Is patient medically & hemodynamically stable?: Yes Patient assessed for mobility or mobilized this visit?: No 05/29/17 10:29 Consult to Sustainable Communities Designer [CONS] Routine Reason for SW Consult: PT/OT rec SNF; [facility] already working on Discharging clinician: Adrien Champagne Anticipated date of discharge: 05/30/17 - Constitutional Vitals: Temp Pulse Resp BP Pulse Ox 97.7 F 63 15 121/54 97 05/30/17 06:51 05/30/17 06:51 05/30/17 06:51 05/30/17 06:51 05/30/17 06:51 General appearance: Present: A&O X 3, pleasant, no acute distress, answers questions appropriately - Respiratory Respiratory exam: Present: CTAB. Absent: accessory muscle use, rales, rhonchi, wheezes - Cardiovascular Cardiovascular exam: Present: RRR, +S1, +S2, systolic murmur (Holosystolic murmur prominent in right second intercostal space). Absent: bradycardia, tachycardia - GI/Abdominal GI/Abdominal exam: Present: normal bowel sounds, soft, no peritoneal signs. Absent: distended, tenderness - Extremities Exam Extremities exam: Present: warm, radial pulses palpable and symmetrical. Absent : calf tenderness, cyanotic, pedal edema - Patient Status Disposition: Transfer SNF Condition: Good Overall status at discharge: patient is progressing back to baseline - Discharge Instructions Follow Up With: Chris Lazaro MD [Primary Care Provider] - - Diet and Activity Activity: as per physical therapy Diet: advance to your usual diet - VTE Documentation of Mechanical Device: Intermittent pneumatic compression device <Sky Campos - Last Filed: 05/30/17 15:55> Date of Encounter: 05/30/17 Hospital course: Ms. Tolliver is a 76 year old female - Time Spent with Patient Total time spent providing and/or coordinating discharge services: Date of admission: 05/20/17 04:26 Primary care physician: Chris Lazaro MD Consults: 05/20/17 05:20 Consult to Pulmonology [CONS] Routine Consulting Provider: [facility] [place] Reason for Consult: Hypotension, ASHTYN Call Completed: Yes 05/23/17 08:26 Consult to Cardiology [CONS] Routine Comment: Consulting Provider: Cardiology Carlene Reason for Consult: recommendations for home meds for afib Time Notified: 08:27 Call Completed: Yes 05/26/17 11:29 Consult to Occupational Therapy [CONS] Routine Comment: Evaluate, develop and implement POC Reason for Consult: Evaluate rehab needs Does patient have active BEDREST order?: No Is patient medically & hemodynamically stable?: Yes Patient assessed for mobility or mobilized this visit?: No Consult to Physical Therapy [CONS] Routine Comment: Evaluate, develop and implement POC Reason for Consult: [facility] rehab needs (balance, coordination) Does patient have active BEDREST order?: No Is patient medically & hemodynamically stable?: Yes Patient assessed for mobility or mobilized this visit?: No 05/29/17 10:29 Consult to Sustainable Communities Designer [CONS] Routine Reason for SW Consult: PT/OT rec SNF; [facility] already working on - Constitutional Vitals: Temp Pulse Resp BP Pulse Ox 97.7 F 63 15 121/54 97 05/30/17 06:51 05/30/17 06:51 05/30/17 06:51 05/30/17 06:51 05/30/17 06:51 - Attending Attestation Acute metabolic encephalopathy possibly secondary to UTI, less likely persistent gram-negative pneumonia She responded to 5 days of Zosyn Time spent on this discharge 40 minutes I examined this patient and my medical decision-making was reviewed with the Resident Physician. I agree with the documented findings, disposition and treatment plan as described except to the extent set forth below.
[2017-05-30] MEDS: Aspirin 81 MG TAB.CHEW PO SCH (09:00)
[2017-05-30] MEDS: Gabapentin 100 MG CAPSULE PO SCH ×3 (09:00→20:29)
[2017-05-30] MEDS: Lisinopril 20 MG TABLET PO SCH (09:00)
[2017-05-30] MEDS: Metoprolol XL (24 HR) Succ 25 MG TAB.ER.24H PO SCH (09:00)
--- NOTE | 2017-05-30 10:46 | Physician Discharge Referral ---
<Adrien Champagne - Last Filed: 05/30/17 10:44> [facility] Referral Info Transfer To: SNF Provider in Charge after Transfer: PCP Institutional Level of Care: Skilled - Diagnosis (1) Pneumonia Priority: Primary Status: Suspected (2) Acute renal failure Priority: Primary Status: Resolved (3) Atrial flutter with rapid ventricular response Priority: Primary Status: Resolved (4) Dementia Status: Chronic (5) UTI (urinary tract infection) Priority: Primary Status: Resolved (6) Hypotension Priority: Primary Status: Resolved - Transfer Medications Home Medications: Acetaminophen [Tylenol Arthritis] 650 mg PO Q8H PRN 03/09/17 [History] Amitriptyline [Elavil] 25 mg PO HS 03/09/17 [History] Cholecalciferol (Vitamin D3) [Vitamin D3] 5,000 unit PO DAILY 03/09/17 [History] Duloxetine HCl [Cymbalta] 60 mg PO HS 03/09/17 [History] Gabapentin [Neurontin] 100 mg PO TID 03/09/17 [History] Lisinopril [Zestril] 20 mg PO DAILY 03/09/17 [History] Loperamide HCl [Anti-Diarrheal] 2 mg PO Q4H PRN 03/09/17 [History] Mag Hydrox/Al Hydrox/Simeth [Antacid Suspension] 30 ml PO Q4H PRN 03/09/17 [ History] Metoprolol Succinate 25 mg PO DAILY 03/09/17 [History] Mirtazapine 7.5 mg PO HS 03/09/17 [History] Omeprazole [PriLOSEC] 20 mg PO DAILY 03/09/17 [History] Venlafaxine HCl [Venlafaxine HCl ER] 37.5 mg PO BID 03/09/17 [History] Vitamin B Complex [B Complex] 1 each PO DAILY 03/09/17 [History] traZODone [TraZODone] 75 mg PO HS 03/09/17 [History] Aspirin 81 mg PO DAILY tab.chew 03/16/17 [Rx] dilTIAZem HCl [Diltiazem 24Hr Cd] 120 mg PO DAILY 05/20/17 [History] Allergies/Adverse Reactions: 3 Allergy/AdvReac Type Severity Reaction Status Date / Time diltiazem [From Cardizem] Allergy Agitated Verified 05/20/17 12:31 morphine AdvReac Agitated Verified 05/20/17 12:31 pregabalin [From Lyrica] AdvReac Agitated Verified 05/20/17 12:31 - Respiratory Orders Oxygen / L per min (@) Smoking Cessation: Smoking cessation has been advised. For more information, call the [employer] Quit Line at 0-462-OOJS-NOW. - Ancillary Orders May use pressure relief devices daily prn, May go on KOBY w/family/respon constitution party w /meds at nurse discretion PRN, May consult with Dentist, Inspector [employer], Licensed Optical Dispenser PRN - Rehabiliation Orders Rehab Potential: Fair CERTIFICATION: I certify that the transfer of the above named patient to an Extended Care Facility is necessary for the continuing treatment of the diagnosis listed. The above information is true and accurate reflection of patient's current condition. Confidential - Redisclosure prohibited without a patient's written consent. <Sky Campos H - Last Filed: 05/30/17 15:56> - Respiratory Orders Smoking Cessation: Smoking cessation has been advised. For more information, call the [place] [employer] Quit Line at 3-242-OOIU-NOW. CERTIFICATION: I certify that the transfer of the above named patient to an Extended Care Facility is necessary for the continuing treatment of the diagnosis listed. The above information is true and accurate reflection of patient's current condition. Confidential - Redisclosure prohibited without a patient's written consent.
[2017-05-30] MEDS: Melatonin 3 MG TABLET PO SCH (20:28)
[2017-05-30] MEDS: hydrOXYzine pamoate 25 MG CAPSULE PO PRN (20:28)
[2017-05-30] MEDS: Mirtazapine 15 MG TABLET PO SCH (20:29)
[2017-05-31] MEDS: Acetaminophen 325 MG TABLET PO PRN ×2 (06:25→18:25)
[2017-05-31] MEDS: *HR* Heparin 5,000 UNIT/ML VIAL SQ SCH ×2 (06:25→18:24)
--- NOTE | 2017-05-31 08:55 | Internal Med Progress Note ---
<Clare Lamas - Last Filed: 05/31/17 08:53> Date of Encounter: 05/31/17 Time of Encounter: 08:30 - Assessment and plan (1) Pneumonia Current Visit: Yes Status: Suspected Assessment and plan: - Patient had finished 5-day course of Zosyn and respiratory status improved. Qualifiers: Pneumonia type: due to unspecified organism Laterality: bilateral Lung location: lower lobe of lung Qualified Code(s): J18.1 - Lobar pneumonia, unspecified organism (2) Acute renal failure Current Visit: Yes Status: Resolved Assessment and plan: - Resolved as latest SCr 0.97 / eGFR 56 on 05/30/17. Qualifiers: Acute renal failure type: unspecified Qualified Code(s): N17.9 - Acute kidney failure, unspecified (3) Atrial flutter with rapid ventricular response Current Visit: Yes Status: Resolved Assessment and plan: - Resolved as patient is currently in normal sinus rhythm. (4) Dementia Current Visit: Yes Status: Chronic Qualifiers: Dementia type: unspecified type Dementia behavioral disturbance: with behavioral disturbance Qualified Code(s): F03.91 - Unspecified dementia with behavioral disturbance (5) UTI (urinary tract infection) Current Visit: Yes Status: Resolved Assessment and plan: - Patient had finished 5-day course of Zosyn. Qualifiers: Urinary tract infection type: acute cystitis Hematuria presence: without hematuria Qualified Code(s): N30.00 - Acute cystitis without hematuria (6) Hypotension Current Visit: Yes Status: Resolved Assessment and plan: - Resolved as patient had been off from pressor and blood pressure remains in normal range. Qualifiers: Hypotension type: unspecified hypotension type Qualified Code(s): I95.9 - Hypotension, unspecified (7) Physical deconditioning Current Visit: No Status: Acute Assessment and plan: - PT/OT recommended SNF/ECF. - Pending placement as [facility] is working on [facility] at this time per social service. - Subjective Interval history: Patient was seen and examined this morning. Patient reports no complaint except some tiredness. Patient still has some non-productive cough but denies shortness of breath, chest pain, fever, chills. - Constitutional Vitals: Temp Pulse Resp BP Pulse Ox 98.2 F 65 15 134/86 92 05/31/17 07:19 05/31/17 07:19 05/31/17 07:19 05/31/17 07:19 05/31/17 07:19 General appearance: Present: A&O X 3, pleasant, no acute distress, answers questions appropriately - Head Head exam: Present: normal inspection - Eye Eye exam: Present: EOMI - Neck Neck exam general surgery: Present: normal inspection, supple - Respiratory Respiratory exam: Present: CTAB - Cardiovascular Cardiovascular exam: Present: RRR, +S1, +S2 - GI/Abdominal GI/Abdominal exam: Present: normal bowel sounds, soft. Absent: tenderness - Extremities Exam Extremities exam: Absent: cyanotic, pedal edema - Neurological Exam Neurological exam: Present: alert, no focal deficits. Absent: facial droop, speech deficit - Skin Skin exam: Present: dry, warm Internal Medicine: Result - Labs CBC & Chem 7: 05/30/17 05:56 05/30/17 05:56 - ABG Interpretation ABG results: PT/INR, D-dimer PT 10.8 Seconds (9.4-12.1) 05/19/17 20:57 - VTE Documentation of Mechanical Device: Intermittent pneumatic compression device Consult Discharge Plan - Plan Instructions: Atrial Fibrillation (DC), Hypotension (DC) Referrals: Chris Lazaro MD [Primary Care Provider] - <Sky Campos H - Last Filed: 05/31/17 09:36> Date of Encounter: 05/31/17 - Constitutional Vitals: Temp Pulse Resp BP Pulse Ox 98.2 F 65 15 134/86 92 05/31/17 07:19 05/31/17 07:19 05/31/17 07:19 05/31/17 07:19 05/31/17 07:19 Internal Medicine: Result - Labs CBC & Chem 7: 05/30/17 05:56 05/30/17 05:56 - ABG Interpretation ABG results: PT/INR, D-dimer PT 10.8 Seconds (9.4-12.1) 05/19/17 20:57 - Attending Attestation Acute metabolic encephalopathy possibly secondary to UTI, less likely persistent gram-negative pneumonia She responded to 5 days of Zosyn Awaiting for placement Time spent on this discharge 40 minutes I examined this patient and my medical decision-making was reviewed with the Resident Physician. I agree with the documented findings, disposition and treatment plan as described except to the extent set forth below.
[2017-05-31] MEDS: Aspirin 81 MG TAB.CHEW PO SCH (09:40)
[2017-05-31] MEDS: Gabapentin 100 MG CAPSULE PO SCH ×3 (09:40→21:18)
[2017-05-31] MEDS: Lisinopril 20 MG TABLET PO SCH (09:40)
[2017-05-31] MEDS: Metoprolol XL (24 HR) Succ 25 MG TAB.ER.24H PO SCH (09:41)
[2017-05-31] MEDS: hydrOXYzine pamoate 25 MG CAPSULE PO PRN ×2 (15:00→21:18)
[2017-05-31] MEDS: Melatonin 3 MG TABLET PO SCH (21:17)
[2017-05-31] MEDS: Mirtazapine 15 MG TABLET PO SCH (21:18)
[2017-06-01] MEDS: *HR* Heparin 5,000 UNIT/ML VIAL SQ SCH ×2 (06:49→22:46)
[2017-06-01] MEDS: Acetaminophen 325 MG TABLET PO PRN ×2 (06:49→23:17)
--- NOTE | 2017-06-01 08:01 | Internal Med Progress Note ---
<Adrien Champagne - Last Filed: 06/01/17 11:14> Date of Encounter: 06/01/17 Time of Encounter: 07:50 - Assessment and plan (1) Pneumonia Current Visit: Yes Status: Suspected Assessment and plan: - Patient had finished 5-day course of Zosyn and respiratory status improved. O2 sat of 94% on RA. Qualifiers: Pneumonia type: due to unspecified organism Laterality: bilateral Lung location: lower lobe of lung Qualified Code(s): J18.1 - Lobar pneumonia, unspecified organism (2) Acute renal failure Current Visit: Yes Status: Resolved Assessment and plan: Resolved. Latest creatinine is 0.97 (yesterday 1.07). GFR at 56 (yesterday 50). Qualifiers: Acute renal failure type: unspecified Qualified Code(s): N17.9 - Acute kidney failure, unspecified (3) Atrial flutter with rapid ventricular response Current Visit: Yes Status: Resolved Assessment and plan: - Resolved as patient is currently in normal sinus rhythm. (4) Dementia Current Visit: Yes Status: Chronic Assessment and plan: AxOX2 today. Qualifiers: Dementia type: unspecified type Dementia behavioral disturbance: with behavioral disturbance Qualified Code(s): F03.91 - Unspecified dementia with behavioral disturbance (5) UTI (urinary tract infection) Current Visit: Yes Status: Resolved Assessment and plan: - Patient had finished 5-day course of Zosyn. - Denies dysruia or hematuria. Qualifiers: Urinary tract infection type: acute cystitis Hematuria presence: without hematuria Qualified Code(s): N30.00 - Acute cystitis without hematuria (6) Hypotension Current Visit: Yes Status: Resolved Assessment and plan: - Resolved as patient had been off from pressor. Latest BP is 141/60. Qualifiers: Hypotension type: unspecified hypotension type Qualified Code(s): I95.9 - Hypotension, unspecified (7) Physical deconditioning Current Visit: No Status: Acute Assessment and plan: - PT/OT recommended SNF/ECF. - Pending placement as [facility]. (8) DVT prophylaxis Current Visit: No Status: Acute Assessment and plan: Heparin 5000U SQ Q12HR - Subjective Interval history: Patient denies any chest pain, shortness of breath, cough, fever, chills, abdominal pain, nausea, vomiting. She denies any diarrhea, constipation, hematochezia, dysuria, or heamaturia. - Constitutional Vitals: Temp Pulse Resp BP Pulse Ox 98.5 F 64 18 141/60 94 06/01/17 06:03 06/01/17 06:03 06/01/17 06:03 06/01/17 06:03 06/01/17 06:03 General appearance: Present: A&O X 3, pleasant, no acute distress, answers questions appropriately - Respiratory Respiratory exam: Present: CTAB. Absent: accessory muscle use, rales, rhonchi, wheezes - Cardiovascular Cardiovascular exam: Present: RRR, +S1, +S2, systolic murmur (Holosystolic murmur in L 2 ICS). Absent: diastolic murmur, gallop, rubs - GI/Abdominal GI/Abdominal exam: Present: normal bowel sounds, soft, no peritoneal signs. Absent: distended, tenderness - Extremities Exam Extremities exam: Present: normal capillary refill, warm, radial pulses palpable and symmetrical. Absent: calf tenderness, cyanotic, pedal edema Internal Medicine: Result - Labs CBC & Chem 7: 05/30/17 05:56 05/30/17 05:56 - ABG Interpretation ABG results: PT/INR, D-dimer PT 10.8 Seconds (9.4-12.1) 05/19/17 20:57 - VTE Documentation of Mechanical Device: Intermittent pneumatic compression device Consult Discharge Plan - Plan Instructions: Atrial Fibrillation (DC), Chest Pain (DC), Acute Kidney Injury ( DC), Urinary Tract Infection in Women (DC), Chronic Hypertension (DC), Hypotension (DC), Anemia (GEN) Referrals: Chris Lazaro MD [Primary Care Provider] - 06/05/17 9:45 am <Sky Campos - Last Filed: 06/01/17 15:18> Date of Encounter: 06/01/17 - Constitutional Vitals: Temp Pulse Resp BP Pulse Ox 97.7 F 65 18 137/81 91 06/01/17 08:05 06/01/17 08:05 06/01/17 08:05 06/01/17 08:05 06/01/17 08:05 Internal Medicine: Result - Labs CBC & Chem 7: 05/30/17 05:56 05/30/17 05:56 - ABG Interpretation ABG results: PT/INR, D-dimer PT 10.8 Seconds (9.4-12.1) 05/19/17 20:57 - Attending Attestation Acute metabolic encephalopathy possibly secondary to UTI, less likely persistent gram-negative pneumonia She responded to 5 days of Zosyn Awaiting for placement I examined this patient and my medical decision-making was reviewed with the Resident Physician. I agree with the documented findings, disposition and treatment plan as described except to the extent set forth below.
[2017-06-01] MEDS: Aspirin 81 MG TAB.CHEW PO SCH (10:10)
[2017-06-01] MEDS: Metoprolol XL (24 HR) Succ 25 MG TAB.ER.24H PO SCH (10:10)
[2017-06-01] MEDS: Gabapentin 100 MG CAPSULE PO SCH ×3 (10:10→22:41)
[2017-06-01] MEDS: Lisinopril 20 MG TABLET PO SCH (10:10)
[2017-06-01] MEDS: Melatonin 3 MG TABLET PO SCH (22:42)
[2017-06-01] MEDS: Mirtazapine 15 MG TABLET PO SCH (23:06)
[2017-06-02] MEDS: *HR* Heparin 5,000 UNIT/ML VIAL SQ SCH (05:15)
[2017-06-02] MEDS: Metoprolol XL (24 HR) Succ 25 MG TAB.ER.24H PO SCH (09:48)
[2017-06-02] MEDS: Aspirin 81 MG TAB.CHEW PO SCH (09:48)
[2017-06-02] MEDS: Gabapentin 100 MG CAPSULE PO SCH ×2 (09:48→15:18)
[2017-06-02] MEDS: Acetaminophen 325 MG TABLET PO PRN (09:48)
[2017-06-02] MEDS: Lisinopril 20 MG TABLET PO SCH (09:48)
--- NOTE | 2017-06-02 13:17 | Internal Med Progress Note ---
Date of Encounter: 06/02/17 Time of Encounter: 13:14 - Assessment and plan (1) Acute metabolic encephalopathy Current Visit: Yes Status: Acute Assessment and plan: Acute metabolic metabolic encephalopathy likely secondary to UTI, possible gram- negative pneumonia Completed 5 days of Zosyn, stable to be discharged. (2) Diarrhea Current Visit: Yes Status: Chronic Qualifiers: Diarrhea type: unspecified type Qualified Code(s): R19.7 - Diarrhea, unspecified (3) Atrial flutter with rapid ventricular response Current Visit: Yes Status: Resolved Assessment and plan: Controlled on metoprolol (4) UTI (urinary tract infection) Current Visit: Yes Status: Resolved Qualifiers: Urinary tract infection type: acute cystitis Hematuria presence: without hematuria Qualified Code(s): N30.00 - Acute cystitis without hematuria (5) Acute kidney injury Current Visit: No Status: Resolved Assessment and plan: Acute renal failure Resolved Creatinine improved from 2.19 down to 0.97 - Subjective Interval history: feeling slightly nauseous , denies CP or SOB, no abdominal pain , no fever, no dysuria no nausea , no diarrhea - Constitutional Vitals: Temp Pulse Resp BP Pulse Ox 97.6 F 58 20 107/51 93 06/02/17 11:37 06/02/17 11:37 06/02/17 11:37 06/02/17 11:37 06/02/17 11:37 General appearance: Present: A&O X 3, pleasant, no acute distress, answers questions appropriately - Head Head exam: Present: atraumatic, normocephalic - Eye Eye exam: Present: PERRL, conjuntiva pink, sclera anicteric Pupils: Present: PERRL - Neck Neck exam general surgery: Present: supple, trachea midline. Absent: lymphadenopathy - Respiratory Respiratory exam: Present: CTAB. Absent: accessory muscle use, rales, rhonchi, wheezes - Cardiovascular Cardiovascular exam: Present: RRR, +S1, +S2. Absent: diastolic murmur, gallop, rubs, systolic murmur - GI/Abdominal GI/Abdominal exam: Present: normal bowel sounds, soft, no peritoneal signs. Absent: distended, tenderness - Extremities Exam Extremities exam: Present: warm, radial pulses palpable and symmetrical. Absent : calf tenderness, cyanotic, pedal edema - Neurological Exam Neurological exam: Present: CN II-XII intact, oriented X3, no focal deficits. Absent: pronater drift, facial droop, speech deficit - Skin Skin exam: Present: dry, intact Internal Medicine: Result - Labs CBC & Chem 7: 05/30/17 05:56 05/30/17 05:56 - ABG Interpretation ABG results: PT/INR, D-dimer PT 10.8 Seconds (9.4-12.1) 05/19/17 20:57 - VTE Documentation of Mechanical Device: Intermittent pneumatic compression device Consult Discharge Plan - Plan Instructions: Atrial Fibrillation (DC), Chest Pain (DC), Acute Kidney Injury ( DC), Urinary Tract Infection in Women (DC), Chronic Hypertension (DC), Hypotension (DC), Anemia (GEN) Referrals: Chris Lazaro MD [Primary Care Provider] -
[2017-06-02 15:16] VITALS: BP 106/69
== END 2017-06-02 18:10 | DRG 177 ==
LOC: EMEROO 20:42 → ICNU 20:42 → 2NENU 05-25 17:54 → 3ANU 06-01 23:56
PROVIDERS: ADMIT Internal Medicine; ATTEND Internal Medicine

== ENCOUNTER 2017-06-07 02:27 | Observation (INO) ==
[2017-06-07] MEDS ORDERED: 0.9 % Sodium Chloride 500 ML IVC ONE (02:47)
--- NOTE | 2017-06-07 02:49 | Emergency Department Note ---
Disposition Clinical Impression: ASHTYN (acute kidney injury) UTI (urinary tract infection) Qualifiers: Urinary tract infection type: site unspecified Hematuria presence: without hematuria Qualified Code(s): N39.0 - Urinary tract infection, site not specified Fall Qualifiers: Encounter type: initial encounter Qualified Code(s): W19.XXXA - Unspecified fall, initial encounter Disposition: Admitted As Inpatient Condition: Fair Referrals: Chris Lazaro MD [Primary Care Provider] - Time of Disposition: 03:58 General Adult HPI - General Stated complaint: fall Time Seen by Provider: 06/07/17 02:35 Source: patient, EMS Mode of arrival: ambulatory Limitations: no limitations Nursing Notes Reviewed: Yes Vital Signs Reviewed: Yes - History of Present Illness HPI Narrative: 76-year-old female with history of A. fib, hypertension presents for evaluation after a fall. Patient was found down at [facility]. Patient states that she tripped. Patient states that she was on the ground and hit her head. Denies any loss of conscious. Denies being on any blood thinners. Patient arrived via EMS. EMS provided additional history stating that the patient has been alert and oriented in route. Patient denies any prodromal symptoms. No nausea or vomiting. Denies any back pain. No hip pain. Patient denies any chest pain or shortness of breath. Prehospital vitals included an episode of hypotension however EMS reported the patient's blood pressure was stable in route. Pain Scale: 8 - Related Data Home Medications Medication Instructions Recorded Confirmed Acetaminophen [Tylenol Arthritis] 650 mg PO Q8H PRN 03/09/17 05/20/17 Amitriptyline [Elavil] 25 mg PO HS 03/09/17 05/20/17 Cholecalciferol (Vitamin D3) 5,000 unit PO DAILY 03/09/17 05/20/17 [Vitamin D3] Duloxetine HCl [Cymbalta] 60 mg PO HS 03/09/17 05/20/17 Gabapentin [Neurontin] 100 mg PO TID 03/09/17 05/20/17 Lisinopril [Zestril] 20 mg PO DAILY 03/09/17 05/20/17 Loperamide HCl [Anti-Diarrheal] 2 mg PO Q4H PRN 03/09/17 05/20/17 Mag Hydrox/Al Hydrox/Simeth 30 ml PO Q4H PRN 03/09/17 05/20/17 [Antacid Suspension] Metoprolol Succinate 25 mg PO DAILY 03/09/17 05/20/17 Mirtazapine 7.5 mg PO HS 03/09/17 05/20/17 Omeprazole [PriLOSEC] 20 mg PO DAILY 03/09/17 05/20/17 Venlafaxine HCl [Venlafaxine HCl 37.5 mg PO BID 03/09/17 05/20/17 ER] Vitamin B Complex [B Complex] 1 each PO DAILY 03/09/17 05/20/17 traZODone [TraZODone] 75 mg PO HS 03/09/17 05/20/17 dilTIAZem HCl [Diltiazem 24Hr Cd] 120 mg PO DAILY 05/20/17 05/20/17 Previous Rx's Medication Instructions Recorded Aspirin 81 mg PO DAILY tab.chew 03/16/17 Allergies Allergy/AdvReac Type Severity Reaction Status Date / Time diltiazem [From Cardizem] Allergy Agitated Verified 05/20/17 12:31 morphine AdvReac Agitated Verified 05/20/17 12:31 pregabalin [From Lyrica] AdvReac Agitated Verified 05/20/17 12:31 All systems ED: reviewed and negative except as stated. Constitutional: Denies: fever Cardiovascular: Denies: chest pain Respiratory: Denies: cough, dyspnea Gastrointestinal: Denies: abdominal pain, nausea, vomiting Past Medical History - Past Medical History Source: patient Medical history: Reports: atrial fibrillation, fibromyalgia, hypertension Surgical history: Reports: hip replacement, other Psychiatric history: Reports: anxiety - Social History Smoking Status: Never smoker Smokeless Tobacco Status: No Alcohol use: Reports: none Drug use: Reports: none Physical Exam - General Limitations: no limitations General appearance: alert, in no apparent distress - Head Head exam: atraumatic, normocephalic, normal inspection - Eye Eye exam: Present: normal appearance, PERRL, EOMI - ENT ENT exam: normal exam, normal oropharynx, mucous membranes moist - Neck Neck exam: Present: normal inspection - Chest Chest inspection: Present: normal inspection, symmetric chest wall rise - Respiratory Respiratory exam: Present: normal lung sounds bilaterally. Absent: respiratory distress - Cardiovascular Cardiovascular exam: Present: regular rate, normal rhythm. Absent: systolic murmur - Abdominal Exam Abdominal exam: Present: soft, Non-Tender - Extremities Exam Extremities exam: Present: normal inspection. Absent: pedal edema - Back Exam Back exam: Present: normal inspection - Neurological Exam Neurological exam: Present: alert, oriented X3, CN II-XII intact - Skin Skin exam: Present: warm, dry, intact, normal color Course Course Narrative: Patient seen and examined. Patient's blood pressure is 89 systolic. Patient will get basic cardiopulmonary evaluation, chest x-ray, CT of the head as well as cervical spine. Disposition pending. Vital Signs Temperature 97.9 F 06/07/17 02:28 Pulse Rate 73 06/07/17 02:28 Respiratory Rate 18 06/07/17 02:28 Blood Pressure 89/60 06/07/17 02:28 O2 Sat by Pulse Oximetry 93 06/07/17 02:28 Temperature 97.9 F 06/07/17 02:28 Pulse Rate 73 06/07/17 02:28 Respiratory Rate 18 06/07/17 02:28 Blood Pressure 89/60 06/07/17 02:28 O2 Sat by Pulse Oximetry 93 06/07/17 02:28 Oxygen Delivery Oxygen Delivery Room Air Medical Decision Making - [facility] Narrative Medical decision making narrative: 76-year-old female presents for evaluation after a fall. Patient follows unwitnessed. Denies any loss of consciousness. Patient had CT imaging of the head and cervical spine. Chest x-ray. Patient was found to be hypotensive prehospital higher EMS noted stable vitals. Patient currently is denying any significant pain. During the course of the patient's ED evaluation the patient had borderline soft pressures responded with fluids. Patient was also noted to have acute kidney injury likely worsened. Patient is noted also have a urinary tract infection likely contributed to the patient's fall. Patient states that she has been falling more frequently at [facility]. Given the patient's comorbidity and laboratory findings the patient will be admitted to the hospital service for further evaluation and monitoring to ensure symptom resolution. - Lab Data Lab results reviewed: Yes I reviewed the patient's lab results. Result diagrams: 06/07/17 02:55 06/07/17 02:55 Lab Results 06/07/17 06/07/17 06/07/17 Range/Units 02:45 02:45 02:50 WBC (4.3-11.1) K/mcL RBC (3.82-4.97) M/mcL Hgb (11.5-15.4) g/dL Hct (35.3-44.9) % MCV (83.0-100.0) fL MCH (28.0-33.3) pg MCHC (31.6-35.5) g/dL RDW (11.5-14.5) % Plt Count (140-400) K/mcL MPV (9.4-12.4) fL Immature Gran % (0-4) % Seg Neutrophils % % Lymphocytes % % Monocytes % % Eosinophils % % Basophils % % Neutrophils # (1.6-8.9) K/mcL Lymphocytes # (0.6-4.6) K/mcL Monocytes # (0.0-1.3) K/mcL Eosinophils # (0.0-0.6) K/mcL Basophils # (0.0-0.2) K/mcL Immature Plt Fraction (1.1-6.1) % PT 11.1 (9.4-12.1) Seconds INR 1.0 Sodium (136-145) mEq/L Potassium (3.5-5.1) mEq/L Chloride (98-107) mEq/L Carbon Dioxide (23-29) mEq/L BUN (8-23) mg/dL Creatinine (0.60-1.20) mg/dL Est GFR ( Amer) (> 60) Est GFR (Non-Af Amer) (> 60) BUN/Creatinine Ratio (6-26) Glucose (70-105) mg/dL Calculated Osmolality (280-300) Lactic Acid 1.1 (0.5-2.2) mmol/L Calcium (8.6-10.3) mg/dL Troponin I (< 0.04) ng/mL Urine Color Yellow (Yellow) Urine Clarity Cloudy A (Clear) Urine pH 6.0 (5.0-8.0) pH Units Ur Specific [place] 1.019 (1.010-1.025) Urine Protein Negative (Neg-Trace) mg/dL Urine Glucose (UA) Normal (Normal) mg/dL Urine Ketones Negative (Negative) mg/dL Urine Blood Negative (Negative) Urine Nitrite Positive A (Negative) Urine Bilirubin Negative (Negative) Urine Urobilinogen Normal (Normal) mg/dL Ur Leukocyte Esterase Moderate H (Negative) Urine Microscopic RBC 0-3 (0-3) per hpf Urine Microscopic WBC 5-15 H (0-3) per hpf Ur Squamous Epith Cells Many H (None-Few) per lpf Urine Bacteria Many H (None-Few) per hpf Hyaline Casts None Seen (None-Few) per lpf 06/07/17 06/07/17 Range/Units 02:55 02:55 WBC 5.2 (4.3-11.1) K/mcL RBC 3.93 (3.82-4.97) M/mcL Hgb 11.4 L (11.5-15.4) g/dL Hct 35.7 (35.3-44.9) % MCV 90.8 (83.0-100.0) fL MCH 29.0 (28.0-33.3) pg MCHC 31.9 (31.6-35.5) g/dL RDW 14.1 (11.5-14.5) % Plt Count 271 (140-400) K/mcL MPV 10.0 (9.4-12.4) fL Immature Gran % 0.4 (0-4) % Seg Neutrophils % 56.1 % Lymphocytes % 31.1 % Monocytes % 8.6 % Eosinophils % 3.4 % Basophils % 0.4 % Neutrophils # 2.9 (1.6-8.9) K/mcL Lymphocytes # 1.6 (0.6-4.6) K/mcL Monocytes # 0.5 (0.0-1.3) K/mcL Eosinophils # 0.2 (0.0-0.6) K/mcL Basophils # 0.0 (0.0-0.2) K/mcL Immature Plt Fraction 1.8 (1.1-6.1) % PT (9.4-12.1) Seconds INR Sodium 138 (136-145) mEq/L Potassium 4.6 (3.5-5.1) mEq/L Chloride 108 H (98-107) mEq/L Carbon Dioxide 26 (23-29) mEq/L BUN 29 H (8-23) mg/dL Creatinine 1.76 H (0.60-1.20) mg/dL Est GFR ( Amer) 34 L (> 60) Est GFR (Non-Af Amer) 28 L (> 60) BUN/Creatinine Ratio 16 (6-26) Glucose 112 H (70-105) mg/dL Calculated Osmolality 293 (280-300) Lactic Acid (0.5-2.2) mmol/L Calcium 9.3 (8.6-10.3) mg/dL Troponin I < 0.03 (< 0.04) ng/mL Urine Color (Yellow) Urine Clarity (Clear) Urine pH (5.0-8.0) pH Units Ur Specific [place] (1.010-1.025) Urine Protein (Neg-Trace) mg/dL Urine Glucose (UA) (Normal) mg/dL Urine Ketones (Negative) mg/dL Urine Blood (Negative) Urine Nitrite (Negative) Urine Bilirubin (Negative) Urine Urobilinogen (Normal) mg/dL Ur Leukocyte Esterase (Negative) Urine Microscopic RBC (0-3) per hpf Urine Microscopic WBC (0-3) per hpf Ur Squamous Epith Cells (None-Few) per lpf Urine Bacteria (None-Few) per hpf Hyaline Casts (None-Few) per lpf - Radiology Data Radiology results reviewed: Yes I reviewed the patient's radiology results. Chest X-Ray 06/07/17 02:45 IMPRESSION: No evidence of acute cardiopulmonary disease. D/ / Catarino Villalobos MD / Catarino Villalobos MD Interpreting Provider: Catarino Villalobos MD Cervical Spine CT 06/07/17 02:46 IMPRESSION: Spondylosis with no definite fracture. D/ / Jermaine Gallo MD / Jermaine Gallo MD Interpreting Provider: Jermaine Gallo MD Head CT 06/07/17 02:46 IMPRESSION: No evidence of acute intracranial hemorrhage. Motion limits the exam. Nonspecific white matter disease, likely due to chronic small vessel ischemia. Old right basal ganglia lacunar infarct. D/ / Catarino Villalobos MD / Catarino Villalobos MD Interpreting Provider: Catarino Villalobos MD - EKG Data EKG #1 EKG attestation: Yes I reviewed and interpreted this EKG. EKG shows normal: sinus rhythm Rate: normal Rhythm: NSR Palms/QRS: normal, RBBB Interpretation: no acute changes, nonspecific ST-T wave changes S.Joe - Chandni Situation: Demographics Background: Presenting Complaint Assessment: Vital Signs, Course and respsone to treatment, Patient/Family Expectation Recommendation: Barrier(s) to disposition, Recommendation based on pending studies, treatments, or consults S.BJessica Report Given to: Dr. Miles SJose Repor Time: 04:01 Attestation Statement - Attestation Attestation: I examined this patient and my medical decision-making was reviewed with the Resident Physician. I agree with the documented findings, disposition and treatment plan as described except to the extent set forth below. Fall, hypotension in the setting of a nitrite-positive urine. We will admit after initiation of cultures and antibiotics for further management and treatment of UTI in the setting of fall.
[2017-06-07 03:05] LABS: Basophils % 0.4 %; Eosinophils # 0.2 K/mcL (0.0-0.6); Eosinophils % 3.4 %; Hematocrit 35.7 % (35.3-44.9); Hemoglobin 11.4 g/dL (11.5-15.4); Immature Granulocytes % 0.4 % (0-4); Immature Platelets 1.8 % (1.1-6.1); Lymphocytes # 1.6 K/mcL (0.6-4.6); Lymphocytes % 31.1 %; Mean Corpuscular HGB Conc 31.9 g/dL (31.6-35.5); Mean Corpuscular Volume 90.8 fL (83.0-100.0); Monocytes # 0.5 K/mcL (0.0-1.3); Monocytes % 8.6 %; Neutrophils # 2.9 K/mcL (1.6-8.9); Platelet Count 271 K/mcL (140-400); Red Blood Count 3.93 M/mcL (3.82-4.97); Red Cell Distribution Width 14.1 % (11.5-14.5); Segmented Neutrophils % 56.1 %
[2017-06-07 03:06] LABS: Bilirubin,Urine Negative (Negative); Blood,Urine Negative (Negative); Clarity,Urine Cloudy (Clear); Color,Urine Yellow (Yellow); Glucose,Urine (UA) Normal (Normal); Ketones,Urine Negative (Negative); Leukocyte Esterase,Urine Moderate (Negative); Nitrite,Urine Positive (Negative); Protein,Urine Negative (Neg-Trace); Specific Gravity,Urine 1.019 (1.010-1.025); Urobilinogen,Urine Normal (Normal)
[2017-06-07 03:07] LABS: Prothrombin Time 11.1 Seconds (9.4-12.1)
[2017-06-07 03:08] LABS: Bacteria,Urine Many per hpf (None-Few); Hyaline Casts,Urine None Seen per lpf (None-Few); RBC,Urine 0-3 per hpf (0-3); Squamous Epithelial Cell,Urine Many per lpf (None-Few)
[2017-06-07 03:23] LABS: BUN/Creatinine Ratio 16 (6-26); Blood Urea Nitrogen 29 mg/dL (8-23); Calcium 9.3 mg/dL (8.6-10.3); Carbon Dioxide 26 mEq/L (23-29); Chloride 108 mEq/L (98-107); Glucose 112 mg/dL (70-105); Osmolality,Calculated 293 (280-300); Potassium 4.6 mEq/L (3.5-5.1); Sodium 138 mEq/L (136-145); eGFR For African Americans 34 (> 60); eGFR For Non-African Americans 28 (> 60)
[2017-06-07 03:24] LABS: Troponin I < 0.03 ng/mL (< 0.04)
[2017-06-07] MEDS ORDERED: cefTRIAXone 1,000 MG in Water for inj. (sterile) 20 ML 10 ML IVP ONE (03:51)
[2017-06-07] MEDS ORDERED: 0.9 % Sodium Chloride 1,000 ML IVC ONE (03:55)
--- NOTE | 2017-06-07 04:11 | Internal Med History&Physical ---
Date of Encounter: 06/07/17 Time of Encounter: 04:09 Internal Medicine - H&P: HPI Chief complaint: Fall Admitted From: Emergency Dept Plans for Post Hospital Care: Transfer [facility] Facility History of present illness: Ms. Tolliver is a 76 year old female with history of hypertension, dementia, paroxysmal A. fib who was just recently discharged from the hospital 05/30 after an admission for which she was treated in the ICU for UTI, hypertension, atrial fibrillation with rapid ventricular response. At the time the patient was put on Cardizem drip but that was stopped due to hypotension and that she was put on an amiodarone drip and converted sinus rhythm and taken off the drip. Eventually at discharge her Toprol-XL was increased to 50 mg daily. She was not discharged on anticoagulation due to dementia and being a fall risk and having a previous positive FOBT. And it also does not seem that the patient was discharged on antibiotics based on our discharge documentations. At the [facility] today she had a fall and was brought in to get evaluated . She tells me that she went to the bathroom and on her way back she felt weak and lost her balance and fell. She does not state that she tripped over anything. She kept on repeating to me that she just felt weak and could not make it to bed. She remembers hitting her head but does not think she lost consciousness. The patient does have baseline dementia and is not the best historian either. In the ED she was found again be borderline hypotensive with a systolic blood pressure in the 80s. She had a positive UA. She was given 1 L normal saline and started on ceftriaxone. She was afebrile. CT head in the ED was with no acute findings. CT cervical spine also showed no acute findings. Labs were remarkable for elevated kidney function. Lactic acid was normal. Patient denies any fever, chills, nausea, vomiting, chest pain, shortness of breath, abdominal pain, urinary symptoms, or neurological symptoms other than the fall. Past Med Surg Social Fam HX - Past Medical History Medical history: atrial fibrillation, fibromyalgia, hypertension Psychiatric history: anxiety - Past Surgical History Surgical History: hip replacement, other - Social History Smoking Status: Never smoker Smokeless Tobacco Status: No Alcohol use: none Drug use: none - Family History Mother Living Status: Father Living Status: Internal Medicine - H&P: Meds Acetaminophen [Tylenol Arthritis] 650 mg PO Q8H PRN 03/09/17 [History] Amitriptyline [Elavil] 25 mg PO HS 03/09/17 [History] Cholecalciferol (Vitamin D3) [Vitamin D3] 5,000 unit PO DAILY 03/09/17 [History] Duloxetine HCl [Cymbalta] 60 mg PO HS 03/09/17 [History] Gabapentin [Neurontin] 100 mg PO TID 03/09/17 [History] Lisinopril [Zestril] 20 mg PO DAILY 03/09/17 [History] Loperamide HCl [Anti-Diarrheal] 2 mg PO Q4H PRN 03/09/17 [History] Mag Hydrox/Al Hydrox/Simeth [Antacid Suspension] 30 ml PO Q4H PRN 03/09/17 [ History] Metoprolol Succinate 25 mg PO DAILY 03/09/17 [History] Mirtazapine 7.5 mg PO HS 03/09/17 [History] Omeprazole [PriLOSEC] 20 mg PO DAILY 03/09/17 [History] Venlafaxine HCl [Venlafaxine HCl ER] 37.5 mg PO BID 03/09/17 [History] Vitamin B Complex [B Complex] 1 each PO DAILY 03/09/17 [History] traZODone [TraZODone] 75 mg PO HS 03/09/17 [History] Aspirin 81 mg PO DAILY tab.chew 03/16/17 [Rx] dilTIAZem HCl [Diltiazem 24Hr Cd] 120 mg PO DAILY 05/20/17 [History] 3 Allergy/AdvReac Type Severity Reaction Status Date / Time diltiazem [From Cardizem] Allergy Agitated Verified 05/20/17 12:31 morphine AdvReac Agitated Verified 05/20/17 12:31 pregabalin [From Lyrica] AdvReac Agitated Verified 05/20/17 12:31 All Systems PM: A 10-system review of systems was performed and is negative for pertinent findings except as documented above in the HPI. Review of systems: All systems reviewed are negative except for as mentioned above - Constitutional Vitals: Temp Pulse Resp BP Pulse Ox 97.9 F 73 18 89/60 93 06/07/17 02:28 06/07/17 02:28 06/07/17 02:28 06/07/17 02:28 06/07/17 02:28 Exam: GEN: NAD HEENT: AT, NC, No cyanosis, oral mucosa is moist, No JVD Lymphatics: No lymphadenoapthy Eyes: Extrocular muscles intact, anicteric CVS:RRR. S1, S2, No m/r/g RESP: CTAB ABD: Soft, NT, ND, +BS EXT: No edema, No rashes, 2+ DP NEURO: Nonfocal, CN II-XII intact, No focal motor or sensory deficits Psych: Cooperative, Not anxious or depressed Internal Med - H&P Results - Labs CBC & Chem 7: 06/07/17 02:55 06/07/17 02:55 Labs: Short CBC 06/07/17 Range/Units 02:55 WBC 5.2 (4.3-11.1) K/mcL Hgb 11.4 L (11.5-15.4) g/dL Hct 35.7 (35.3-44.9) % Plt Count 271 (140-400) K/mcL Neutrophils # 2.9 (1.6-8.9) K/mcL BMP 06/07/17 02:55 Sodium 138 Potassium 4.6 Chloride 108 H Carbon Dioxide 26 BUN 29 H Creatinine 1.76 H Glucose 112 H Calcium 9.3 Cardiac Enzymes 06/07/17 Range/Units 02:55 Troponin I < 0.03 (< 0.04) ng/mL Urine 06/07/17 Range/Units 02:50 Urine Color Yellow (Yellow) Urine Clarity Cloudy A (Clear) Urine pH 6.0 (5.0-8.0) pH Units Ur Specific [place] 1.019 (1.010-1.025) Urine Protein Negative (Neg-Trace) mg/dL Urine Glucose (UA) Normal (Normal) mg/dL - Impressions ITS Impressions Chest X-Ray 06/07/17 02:45 IMPRESSION: No evidence of acute cardiopulmonary disease. D/ / Catarino Villalobos MD / Catarino Villalobos MD Interpreting Provider: Catarino Villalobos MD Cervical Spine CT 06/07/17 02:46 IMPRESSION: Spondylosis with no definite fracture. D/ / Jermaine Gallo MD / Jermaine Gallo MD Interpreting Provider: Jermaine Gallo MD Head CT 06/07/17 02:46 IMPRESSION: No evidence of acute intracranial hemorrhage. Motion limits the exam. Nonspecific white matter disease, likely due to chronic small vessel ischemia. Old right basal ganglia lacunar infarct. D/ / Catarino Villalobos MD / Catarino Villalobos MD Interpreting Provider: Catarino Villalobos MD - Assessment and plan (1) UTI (urinary tract infection) Current Visit: Yes Status: Acute Assessment and plan: Patient's urine is positive for nitrites. Did not have positive nitrites last time she was here. Hard to get from the patient if his urinary symptoms. Given her presentation I will continue the patient on ceftriaxone that was started in the ED. Follow up on cultures. Qualifiers: Urinary tract infection type: site unspecified Hematuria presence: without hematuria Qualified Code(s): N39.0 - Urinary tract infection, site not specified (2) ASHTYN (acute kidney injury) Current Visit: Yes Status: Acute Assessment and plan: The patient has received 1.5 L of fluid in the ED. We will continue gentle hydration and check labs in the morning. Avoid nephrotoxins (3) Fall Current Visit: Yes Status: Acute Assessment and plan: Patient continues to be a high risk for falls as this is recurrent. Qualifiers: Encounter type: initial encounter Qualified Code(s): W19.XXXA - Unspecified fall, initial encounter (4) Dementia Current Visit: No Status: Chronic Assessment and plan: Chronic. Supportive care Qualifiers: Dementia type: unspecified type Dementia behavioral disturbance: with behavioral disturbance Qualified Code(s): F03.91 - Unspecified dementia with behavioral disturbance (5) Hypotension Current Visit: No Status: Resolved Assessment and plan: Patient's blood pressure is improving with IV fluids for now. Seems to have had a similar presentation last time she was here. The patient is on multiple antihypertensives. I will hold those for now. Those possibly need to be adjusted at discharge if she continues to be hypotensive Qualifiers: Hypotension type: unspecified hypotension type Qualified Code(s): I95.9 - Hypotension, unspecified (6) Paroxysmal A-fib Current Visit: No Status: Acute Assessment and plan: Currently in sinus. Rate is controlled. Hold Cardizem and beta ebony for now given her low blood pressure. Not a good candidate for anticoagulation given recurrent falls. (7) DVT prophylaxis Current Visit: No Status: Acute Assessment and plan: Hyper subcutaneous - Time Spent With Patient Total time spent is greater than 50% in coordination of care (as documented) at patient's floor/unit and/or counseling patient:
[2017-06-07] MEDS ORDERED: Naloxone 0.4 MG/ML INJ IVP PRN (04:33)
[2017-06-07] MEDS: 0.9 % Sodium Chloride 1,000 ML IVC SCH ×2 (07:34→16:44)
[2017-06-07] MEDS: *HR* Heparin 5,000 UNIT/ML VIAL SQ SCH ×3 (07:35→21:16)
--- NOTE | 2017-06-07 11:01 | Event Note ---
Date of Encounter: 06/07/17 Time of Encounter: 10:59 1. Debility and hypotension due to dehydration and urinary tract infection Hypotension has improved considerably Continue Rocephin, send urine culture, it was not performed after the UA Continue IV fluids Consider list of medications Physical therapy consult
--- NOTE | 2017-06-07 13:17 | Electrocardiograph Report ---
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
[2017-06-07] MEDS: Venlafaxine XR (24 HR) 37.5 MG CAP.ER.24H PO SCH ×2 (13:27→21:16)
[2017-06-07] MEDS: cefTRIAXone 1,000 MG in Water for inj. (sterile) 20 ML 10 ML IVP SCH (16:44)
[2017-06-07] MEDS: Gabapentin 100 MG CAPSULE PO SCH ×2 (16:44→21:16)
[2017-06-07] MEDS: Acetaminophen 325 MG TABLET PO PRN (16:46)
[2017-06-08] MEDS: 0.9 % Sodium Chloride 1,000 ML IVC SCH (02:03)
[2017-06-08 04:56] LABS: Basophils % 0.3 %; Eosinophils # 0.1 K/mcL (0.0-0.6); Eosinophils % 3.5 %; Hematocrit 31.9 % (35.3-44.9); Hemoglobin 10.2 g/dL (11.5-15.4); Immature Granulocytes % 0.9 % (0-4); Lymphocytes # 1.5 K/mcL (0.6-4.6); Mean Corpuscular Hemoglobin 28.7 pg (28.0-33.3); Mean Corpuscular Volume 89.9 fL (83.0-100.0); Mean Platelet Volume 10.3 fL (9.4-12.4); Monocytes # 0.3 K/mcL (0.0-1.3); Monocytes % 9.4 %; Neutrophils # 1.4 K/mcL (1.6-8.9); Nucleated Red Blood Cells 0.6 /100 WBC (0); Platelet Count 181 K/mcL (140-400); Red Blood Count 3.55 M/mcL (3.82-4.97); Red Cell Distribution Width 13.9 % (11.5-14.5); Segmented Neutrophils % 40.9 %
[2017-06-08] MEDS: *HR* Heparin 5,000 UNIT/ML VIAL SQ SCH ×3 (05:02→21:33)
[2017-06-08 05:06] LABS: BUN/Creatinine Ratio 17 (6-26); Blood Urea Nitrogen 17 mg/dL (8-23); Calcium 8.2 mg/dL (8.6-10.3); Carbon Dioxide 22 mEq/L (23-29); Chloride 117 mEq/L (98-107); Glucose 84 mg/dL (70-105); Osmolality,Calculated 293 (280-300); Potassium 4.8 mEq/L (3.5-5.1); Sodium 141 mEq/L (136-145); eGFR For African Americans > 60 (> 60); eGFR For Non-African Americans 54 (> 60)
[2017-06-08] MEDS: Venlafaxine XR (24 HR) 37.5 MG CAP.ER.24H PO SCH ×2 (07:58→20:33)
[2017-06-08] MEDS: Gabapentin 100 MG CAPSULE PO SCH ×3 (07:58→20:32)
[2017-06-08] MEDS: Metoprolol XL (24 HR) Succ 25 MG TAB.ER.24H PO SCH (07:58)
[2017-06-08] MEDS ORDERED: Mag Hydrox/Al Hydrox/Simeth 30 ML UDC PO PRN (10:57)
--- NOTE | 2017-06-08 10:57 | Internal Med Progress Note ---
Date of Encounter: 06/08/17 Time of Encounter: 09:20 - Assessment and plan (1) DVT prophylaxis Current Visit: Yes Status: Acute Assessment and plan: Continue heparin subcutaneous (2) Paroxysmal A-fib Current Visit: Yes Status: Chronic Assessment and plan: Currently in sinus. Rate is controlled. Continue home BB , hypotension has resolved. Not a good candidate for anticoagulation given recurrent falls. (3) Hypotension Current Visit: Yes Status: Resolved Assessment and plan: Resolved with IVF hydration Qualifiers: Hypotension type: unspecified hypotension type Qualified Code(s): I95.9 - Hypotension, unspecified (4) Dementia Current Visit: Yes Status: Chronic Assessment and plan: Chronic. Supportive care Qualifiers: Dementia type: unspecified type Dementia behavioral disturbance: with behavioral disturbance Qualified Code(s): F03.91 - Unspecified dementia with behavioral disturbance (5) ASHTYN (acute kidney injury) Current Visit: Yes Status: Resolved Assessment and plan: Resolved, resume home ACEI Continue to monitor Avoid nephrotoxins (6) UTI (urinary tract infection) Current Visit: Yes Status: Acute Assessment and plan: Patient's urine is positive for nitrites and LE Culture is pending Blood culture is preliminary no growth Continue Ceftriaxone and follow final urine culture Qualifiers: Urinary tract infection type: site unspecified Hematuria presence: without hematuria Qualified Code(s): N39.0 - Urinary tract infection, site not specified (7) Fall Current Visit: Yes Status: Acute Assessment and plan: Patient continues to be a high risk for falls as this is recurrent. Fall precautions PTOT eval Qualifiers: Encounter type: initial encounter Qualified Code(s): W19.XXXA - Unspecified fall, initial encounter - Time Spent With Patient Total time spent is greater than 50% in coordination of care (as documented) at patient's floor/unit and/or counseling patient: - Subjective Interval history: 76-year-old female with dementia and paroxysmal atrial fibrillation as well as hypertension who is admitted for urinary tract infection, acute kidney injury, hypotension and full. She is seen and examined at the bedside, she reports no new complaints, and she is clinically stable. We are awaiting urine and blood culture Her hypotension has resolved. - Constitutional Vitals: Temp Pulse Resp BP Pulse Ox 97.9 F 68 15 121/72 94 06/08/17 10:23 06/08/17 10:23 06/08/17 10:23 06/08/17 10:23 06/08/17 10:23 General appearance: Present: A&O X 3, pleasant, no acute distress - Head Head exam: Present: atraumatic, normocephalic - Eye Eye exam: Present: PERRL, conjuntiva pink, sclera anicteric Pupils: Present: PERRL - Neck Neck exam general surgery: Present: supple, trachea midline. Absent: lymphadenopathy - Respiratory Respiratory exam: Present: CTAB. Absent: accessory muscle use, rales, rhonchi, wheezes - Cardiovascular Cardiovascular exam: Present: RRR, +S1, +S2, systolic murmur. Absent: diastolic murmur, gallop, rubs - GI/Abdominal GI/Abdominal exam: Present: normal bowel sounds, soft, no peritoneal signs. Absent: distended, tenderness - Extremities Exam Extremities exam: Present: warm, radial pulses palpable and symmetrical. Absent : calf tenderness, cyanotic, pedal edema - Neurological Exam Neurological exam: Present: alert, CN II-XII intact, oriented X3, no focal deficits. Absent: pronater drift, facial droop, speech deficit - Skin Skin exam: Present: dry, intact Internal Medicine: Result - Labs CBC & Chem 7: 06/08/17 04:41 06/08/17 04:41 Labs: Short CBC 06/08/17 Range/Units 04:41 WBC 3.4 L (4.3-11.1) K/mcL Hgb 10.2 L (11.5-15.4) g/dL Hct 31.9 L (35.3-44.9) % Plt Count 181 (140-400) K/mcL Neutrophils # 1.4 L (1.6-8.9) K/mcL BMP 06/08/17 04:41 Sodium 141 Potassium 4.8 Chloride 117 H Carbon Dioxide 22 L BUN 17 Creatinine 0.99 Glucose 84 Calcium 8.2 L - ABG Interpretation ABG results: PT/INR, D-dimer PT 11.1 Seconds (9.4-12.1) 06/07/17 02:45 Consult Discharge Plan - Plan
[2017-06-08] MEDS: Vitamin B Complex/Vit C/Vit E 1 EACH TABLET PO SCH (11:21)
[2017-06-08] MEDS: Cholecalciferol (D-3) 1,000 UNIT TABLET PO SCH (11:21)
[2017-06-08] MEDS: cefTRIAXone 1,000 MG in Water for inj. (sterile) 20 ML 10 ML IVP SCH (18:10)
[2017-06-08] MEDS: Mirtazapine 15 MG TABLET PO SCH (20:32)
[2017-06-08] MEDS: traZODone 50 MG TABLET PO SCH (20:33)
[2017-06-09 05:06] LABS: Basophils % 0.3 %; Eosinophils # 0.2 K/mcL (0.0-0.6); Eosinophils % 4.2 %; Hematocrit 32.1 % (35.3-44.9); Hemoglobin 10.2 g/dL (11.5-15.4); Immature Granulocytes % 0.6 % (0-4); Lymphocytes # 1.4 K/mcL (0.6-4.6); Lymphocytes % 38.3 %; Mean Corpuscular HGB Conc 31.8 g/dL (31.6-35.5); Mean Corpuscular Hemoglobin 28.5 pg (28.0-33.3); Mean Corpuscular Volume 89.7 fL (83.0-100.0); Mean Platelet Volume 9.9 fL (9.4-12.4); Monocytes # 0.3 K/mcL (0.0-1.3); Monocytes % 8.1 %; Neutrophils # 1.8 K/mcL (1.6-8.9); Platelet Count 205 K/mcL (140-400); Red Blood Count 3.58 M/mcL (3.82-4.97); Red Cell Distribution Width 13.8 % (11.5-14.5); Segmented Neutrophils % 48.5 %
[2017-06-09] MEDS: *HR* Heparin 5,000 UNIT/ML VIAL SQ SCH ×3 (05:45→21:48)
[2017-06-09] MEDS: Lisinopril 20 MG TABLET PO SCH (09:41)
[2017-06-09] MEDS: Aspirin 81 MG TAB.CHEW PO SCH (09:41)
[2017-06-09] MEDS: Cholecalciferol (D-3) 1,000 UNIT TABLET PO SCH (09:41)
[2017-06-09] MEDS: Gabapentin 100 MG CAPSULE PO SCH ×3 (09:41→20:00)
[2017-06-09] MEDS: Vitamin B Complex/Vit C/Vit E 1 EACH TABLET PO SCH (09:41)
[2017-06-09] MEDS: Venlafaxine XR (24 HR) 37.5 MG CAP.ER.24H PO SCH ×2 (09:41→20:01)
[2017-06-09] MEDS: Metoprolol XL (24 HR) Succ 25 MG TAB.ER.24H PO SCH (09:41)
--- NOTE | 2017-06-09 12:36 | Internal Med Progress Note ---
Date of Encounter: 06/09/17 Time of Encounter: 12:34 - Assessment and plan (1) DVT prophylaxis Current Visit: Yes Status: Acute Assessment and plan: Continue heparin subcutaneous (2) Paroxysmal A-fib Current Visit: Yes Status: Chronic Assessment and plan: Currently in sinus. Rate is controlled. Continue home BB , hypotension has resolved. Not a good candidate for anticoagulation given recurrent falls. (3) Hypotension Current Visit: Yes Status: Resolved Assessment and plan: Resolved with IVF hydration Qualifiers: Hypotension type: unspecified hypotension type Qualified Code(s): I95.9 - Hypotension, unspecified (4) Dementia Current Visit: Yes Status: Chronic Assessment and plan: Chronic. Supportive care Qualifiers: Dementia type: unspecified type Dementia behavioral disturbance: with behavioral disturbance Qualified Code(s): F03.91 - Unspecified dementia with behavioral disturbance (5) ASHTYN (acute kidney injury) Current Visit: Yes Status: Resolved Assessment and plan: Resolved, continue home meds Continue to monitor Avoid nephrotoxins (6) UTI (urinary tract infection) Current Visit: Yes Status: Acute Assessment and plan: Patient's urine is positive for nitrites and LE Urine culture with GNR Blood culture is preliminary no growth Continue Ceftriaxone and follow final urine culture Qualifiers: Urinary tract infection type: site unspecified Hematuria presence: without hematuria Qualified Code(s): N39.0 - Urinary tract infection, site not specified (7) Fall Current Visit: Yes Status: Acute Assessment and plan: Patient continues to be a high risk for falls as this is recurrent. Fall precautions PTOT eval noted for SNF/ECF Qualifiers: Encounter type: initial encounter Qualified Code(s): W19.XXXA - Unspecified fall, initial encounter - Time Spent With Patient Total time spent is greater than 50% in coordination of care (as documented) at patient's floor/unit and/or counseling patient: - Subjective Interval history: 76-year-old female with dementia and paroxysmal atrial fibrillation as well as hypertension who is admitted for urinary tract infection, acute kidney injury, hypotension and full. She is seen and examined at the bedside, she reports no new complaints, and she is clinically stable. Blood culture is prelim no growth Urine culture is GNR, final result and sensitivity pending - Constitutional Vitals: Temp Pulse Resp BP Pulse Ox 97.6 F 68 14 127/70 94 06/09/17 10:43 06/09/17 10:43 06/09/17 10:43 06/09/17 10:43 06/09/17 10:43 General appearance: Present: A&O X 3, pleasant, no acute distress - Head Head exam: Present: atraumatic, normocephalic - Eye Eye exam: Present: PERRL, conjuntiva pink, sclera anicteric Pupils: Present: PERRL - Neck Neck exam general surgery: Present: supple, trachea midline. Absent: lymphadenopathy - Respiratory Respiratory exam: Present: CTAB. Absent: accessory muscle use, rales, rhonchi, wheezes - Cardiovascular Cardiovascular exam: Present: RRR, +S1, +S2. Absent: diastolic murmur, gallop, rubs, systolic murmur - GI/Abdominal GI/Abdominal exam: Present: normal bowel sounds, soft, no peritoneal signs. Absent: distended, tenderness - Extremities Exam Extremities exam: Present: warm, radial pulses palpable and symmetrical. Absent : calf tenderness, cyanotic, pedal edema - Neurological Exam Neurological exam: Present: alert, CN II-XII intact, oriented X3, no focal deficits. Absent: pronater drift, facial droop, speech deficit - Skin Skin exam: Present: dry, intact Internal Medicine: Result - Labs CBC & Chem 7: 06/09/17 04:07 06/08/17 04:41 Labs: Short CBC 06/09/17 Range/Units 04:07 WBC 3.6 L (4.3-11.1) K/mcL Hgb 10.2 L (11.5-15.4) g/dL Hct 32.1 L (35.3-44.9) % Plt Count 205 (140-400) K/mcL Neutrophils # 1.8 (1.6-8.9) K/mcL - ABG Interpretation ABG results: PT/INR, D-dimer PT 11.1 Seconds (9.4-12.1) 06/07/17 02:45 Consult Discharge Plan - Plan Referrals: Chris Lazaro MD [Primary Care Provider] -
[2017-06-09] MEDS: cefTRIAXone 1,000 MG in Water for inj. (sterile) 20 ML 10 ML IVP SCH (18:06)
[2017-06-09] MEDS: Acetaminophen 325 MG TABLET PO PRN (19:59)
[2017-06-09] MEDS: traZODone 50 MG TABLET PO SCH (20:00)
[2017-06-09] MEDS: Mirtazapine 15 MG TABLET PO SCH (20:01)
[2017-06-10] MEDS: *HR* Heparin 5,000 UNIT/ML VIAL SQ SCH (05:47)
[2017-06-10] MEDS: Lisinopril 20 MG TABLET PO SCH (07:55)
[2017-06-10] MEDS: Metoprolol XL (24 HR) Succ 25 MG TAB.ER.24H PO SCH (07:55)
[2017-06-10] MEDS: Venlafaxine XR (24 HR) 37.5 MG CAP.ER.24H PO SCH (07:55)
[2017-06-10] MEDS: Gabapentin 100 MG CAPSULE PO SCH (07:55)
[2017-06-10] MEDS: Cholecalciferol (D-3) 1,000 UNIT TABLET PO SCH (07:55)
[2017-06-10] MEDS: Aspirin 81 MG TAB.CHEW PO SCH (07:55)
[2017-06-10] MEDS: Vitamin B Complex/Vit C/Vit E 1 EACH TABLET PO SCH (07:55)
[2017-06-10] MEDS ORDERED: Cefdinir 300 MG CAPSULE PO SCH (09:00)
[2017-06-10 11:01] VITALS: BP 141/59
--- NOTE | 2017-06-10 12:03 | Physician Discharge Referral ---
ExtendedCare Referral Info Transfer To: [facility] Provider in Charge: Michel Rivas Provider in Charge after Transfer: PCP Institutional Level of Care: Skilled - Diagnosis (1) DVT prophylaxis Priority: Primary Status: Acute (2) Paroxysmal A-fib Priority: Secondary Status: Chronic (3) Hypotension Priority: Primary Status: Resolved (4) Dementia Priority: Secondary Status: Chronic (5) ASHTYN (acute kidney injury) Priority: Primary Status: Resolved (6) UTI (urinary tract infection) Priority: Primary Status: Acute (7) Fall Priority: Secondary Status: Acute Prognosis: Fair Aware of Diagnosis: Patient Aware of Prognosis: Patient - Transfer Medications Home Medications: Acetaminophen [Tylenol Arthritis] 650 mg PO Q8H PRN 03/09/17 [History] Amitriptyline [Elavil] 25 mg PO HS 03/09/17 [History] Duloxetine HCl [Cymbalta] 60 mg PO HS 03/09/17 [History] Gabapentin [Neurontin] 100 mg PO TID 03/09/17 [History] Lisinopril [Zestril] 20 mg PO DAILY 03/09/17 [History] Loperamide HCl [Anti-Diarrheal] 2 mg PO Q4H PRN 03/09/17 [History] Mag Hydrox/Al Hydrox/Simeth [Antacid Suspension] 30 ml PO Q4H PRN 03/09/17 [ History] Metoprolol Succinate 25 mg PO DAILY 03/09/17 [History] Mirtazapine 7.5 mg PO HS 03/09/17 [History] Omeprazole [PriLOSEC] 20 mg PO DAILY 03/09/17 [History] Venlafaxine HCl [Venlafaxine HCl ER] 37.5 mg PO BID 03/09/17 [History] Vitamin B Complex [B Complex] 1 each PO DAILY 03/09/17 [History] Aspirin 81 mg PO DAILY tab.chew 03/16/17 [Rx] Cholecalciferol (D-3) [Vitamin D] 5,000 unit PO DAILY 06/07/17 [History] Trazodone HCl 75 mg PO HS 06/07/17 [History] Cefdinir [Omnicef] 300 mg PO BID capsule 06/10/17 [Rx] Allergies/Adverse Reactions: 3 Allergy/AdvReac Type Severity Reaction Status Date / Time diltiazem [From Cardizem] Allergy Agitated Verified 06/07/17 12:41 morphine AdvReac Agitated Verified 06/07/17 12:41 pregabalin [From Lyrica] AdvReac Agitated Verified 06/07/17 12:41 - Respiratory Orders Smoking Cessation: Smoking cessation has been advised. For more information, call the [place] Tobacco Quit Line at 3-452-ITQC-NOW. - Advance Directives Code Status: Full Code - Mobility Orders Ambulate - Diet Orders Cardiac CERTIFICATION: I certify that the transfer of the above named patient to an Extended Care Facility is necessary for the continuing treatment of the diagnosis listed. The above information is true and accurate reflection of patient's current condition. Confidential - Redisclosure prohibited without a patient's written consent.
--- NOTE | 2017-06-10 12:05 | Discharge Summary ---
- NOTES TO OUTPATIENT PROVIDER Notes to Outpatient Provider: UTI due to Klebsiella Oxytoca, discharged on imnicef, pls take for 5 more days. NO change in meds. ASHTYN and HYpotension resolved with IVF hydration Date of Encounter: 06/10/17 Time of Encounter: 12:03 - Discharge Diagnosis (1) DVT prophylaxis Priority: Secondary Status: Acute (2) Paroxysmal A-fib Priority: Secondary Status: Chronic (3) Hypotension Priority: Primary Status: Resolved Qualifiers: Hypotension type: unspecified hypotension type Qualified Code(s): I95.9 - Hypotension, unspecified (4) Dementia Priority: Secondary Status: Chronic Qualifiers: Dementia type: unspecified type Dementia behavioral disturbance: with behavioral disturbance Qualified Code(s): F03.91 - Unspecified dementia with behavioral disturbance (5) ASHTYN (acute kidney injury) Priority: Primary Status: Resolved (6) UTI (urinary tract infection) Priority: Primary Status: Acute Qualifiers: Urinary tract infection type: site unspecified Hematuria presence: without hematuria Qualified Code(s): N39.0 - Urinary tract infection, site not specified (7) Fall Priority: Primary Status: Acute Qualifiers: Encounter type: initial encounter Qualified Code(s): W19.XXXA - Unspecified fall, initial encounter Hospital course: Ms. Tolliver is a 76 year old female with PMH of Afib not on ancticoagulation due to rcurrent falls, Dementia, resident of SNF, HTN, who was admitted following a fall and hypotension. Work up showed ASHTYN and UTI Urine culture grew solano-sensitive Klebsiella oxyctoca She was managed with IVF, IB antibiotics , ASHTYN abd HYpotension has resolved. Home meds were resumed without adverse effects She received IV ceftriaxone for UTI and can continue at the SNF with OMnicef for a total duration of 7 days. No sepsis and blood culture was negative Her other chronic medical conditions are stable PTOT recommends ECF/SNF, fall precautions Stable for transfer back to SNF Discharge discussed with: patient, nurse - Time Spent with Patient Total time spent providing and/or coordinating discharge services: Less than 30 minutes - Discharge Medications Home Medications: Acetaminophen [Tylenol Arthritis] 650 mg PO Q8H PRN 03/09/17 [History] Amitriptyline [Elavil] 25 mg PO HS 03/09/17 [History] Duloxetine HCl [Cymbalta] 60 mg PO HS 03/09/17 [History] Gabapentin [Neurontin] 100 mg PO TID 03/09/17 [History] Lisinopril [Zestril] 20 mg PO DAILY 03/09/17 [History] Loperamide HCl [Anti-Diarrheal] 2 mg PO Q4H PRN 03/09/17 [History] Mag Hydrox/Al Hydrox/Simeth [Antacid Suspension] 30 ml PO Q4H PRN 03/09/17 [ History] Metoprolol Succinate 25 mg PO DAILY 03/09/17 [History] Mirtazapine 7.5 mg PO HS 03/09/17 [History] Omeprazole [PriLOSEC] 20 mg PO DAILY 03/09/17 [History] Venlafaxine HCl [Venlafaxine HCl ER] 37.5 mg PO BID 03/09/17 [History] Vitamin B Complex [B Complex] 1 each PO DAILY 03/09/17 [History] Aspirin 81 mg PO DAILY tab.chew 03/16/17 [Rx] Cholecalciferol (D-3) [Vitamin D] 5,000 unit PO DAILY 06/07/17 [History] Trazodone HCl 75 mg PO HS 06/07/17 [History] Cefdinir [Omnicef] 300 mg PO BID capsule 06/10/17 [Rx] Allergies/Adverse Reactions: 3 Allergy/AdvReac Type Severity Reaction Status Date / Time diltiazem [From Cardizem] Allergy Agitated Verified 06/07/17 12:41 morphine AdvReac Agitated Verified 06/07/17 12:41 pregabalin [From Lyrica] AdvReac Agitated Verified 06/07/17 12:41 Date of admission: 06/07/17 04:41 Primary care physician: Chris Lazaro MD Consults: 06/07/17 10:54 Consult to Physical Therapy [CONS] Routine Comment: Evaluate, develop and implement POC Reason for Consult: eval Does patient have active BEDREST order?: No Is patient medically & hemodynamically stable?: Yes Patient assessed for mobility or mobilized this visit?: Yes 06/07/17 17:07 Consult to [facility] [CONS] Routine Reason for SW Consult: ecf placement Discharging clinician: Imtiaz Rivas Anticipated date of discharge: 06/10/17 - Constitutional Vitals: Temp Pulse Resp BP Pulse Ox 97.5 F L 63 16 141/59 95 06/10/17 11:01 06/10/17 11:01 06/10/17 11:01 06/10/17 11:01 06/10/17 11:01 General appearance: Present: A&O X 3, pleasant, no acute distress - Head Head exam: Present: atraumatic, normocephalic - Eye Eye exam: Present: PERRL, conjuntiva pink, sclera anicteric Pupils: Present: PERRL - Neck Neck exam general surgery: Present: supple, trachea midline. Absent: lymphadenopathy - Respiratory Respiratory exam: Present: CTAB. Absent: accessory muscle use, rales, rhonchi, wheezes - Cardiovascular Cardiovascular exam: Present: RRR, +S1, +S2. Absent: diastolic murmur, gallop, rubs, systolic murmur - GI/Abdominal GI/Abdominal exam: Present: normal bowel sounds, soft, no peritoneal signs. Absent: distended, tenderness - Extremities Exam Extremities exam: Present: warm, radial pulses palpable and symmetrical. Absent : calf tenderness, cyanotic, pedal edema - Neurological Exam Neurological exam: Present: CN II-XII intact, oriented X3, no focal deficits. Absent: pronater drift, facial droop, speech deficit - Skin Skin exam: Present: dry, intact - Patient Status Disposition: Transfer SNF Condition: Fair Functional capacity at discharge: uses cane/walker Overall status at discharge: patient is progressing back to baseline - Discharge Instructions Follow Up With: Chris Lazaro MD [Primary Care Provider] - Forms: ED Satisfaction Letter - Diet and Activity Activity: as per physical therapy Diet: low salt diet
== END 2017-06-10 13:45 ==
LOC: EMEROO 02:27 → 2SOUTHHOLD 02:27 → SUATTDRO 04:42 → 2SOUTHHOLD 05:45 → 3ANU 22:21
PROVIDERS: ADMIT Internal Medicine; ATTEND Internal Medicine

== ENCOUNTER 2018-12-08 17:25 | Inpatient (IN) ==
[2018-12-08 19:13] LABS: Basophils % 0.3 %; Eosinophils % 0.4 %; Hematocrit 41.7 % (35.3-44.9); Hemoglobin 13.5 g/dL (11.5-15.4); Lymphocytes # 1.3 K/mcL (0.6-4.6); Lymphocytes % 12.6 %; Mean Corpuscular HGB Conc 32.4 g/dL (31.6-35.5); Mean Corpuscular Volume 92.7 fL (83.0-100.0); Mean Platelet Volume 9.7 fL (9.4-12.4); Monocytes # 0.3 K/mcL (0.0-1.3); Monocytes % 3.2 %; Neutrophils # 8.7 K/mcL (1.6-8.9); Nucleated Red Blood Cells 0.2 /100 WBC (0); Platelet Count 202 K/mcL (140-400); Red Cell Distribution Width 13.4 % (11.5-14.5); Segmented Neutrophils % 82.5 %; White Blood Count 10.6 K/mcL (4.3-11.1)
[2018-12-08 19:39] LABS: Alanine Aminotransferase 17 Units/L (7-52); Albumin 3.8 g/dL (3.5-5.7); Albumin/Globulin Ratio 1.7 (1.1-2.2); Alkaline Phosphatase 47 Units/L (34-104); Aspartate Amino Transferase 21 Units/L (13-39); BUN/Creatinine Ratio 14 (6-26); Bilirubin,Total 0.6 mg/dL (0.3-1.0); Blood Urea Nitrogen 15 mg/dL (8-23); Calcium 9.3 mg/dL (8.6-10.3); Carbon Dioxide 29 mEq/L (23-29); Chloride 109 mEq/L (98-107); Globulin 2.2 g/dL (2.4-3.5); Glucose 103 mg/dL (70-105); Osmolality,Calculated 295 (280-300); Sodium 142 mEq/L (136-145); eGFR For African Americans 57 (> 60); eGFR For Non-African Americans 47 (> 60)
[2018-12-08 20:14] LABS: Bilirubin,Urine Negative (Negative); Blood,Urine Negative (Negative); Clarity,Urine Clear (Clear); Color,Urine Yellow (Yellow); Glucose,Urine (UA) Normal (Normal); Ketones,Urine Negative (Negative); Leukocyte Esterase,Urine Small (Negative); Nitrite,Urine Negative (Negative); PH,Urine 5.5 pH Units (5.0-8.0); Protein,Urine Trace mg/dL (Neg-Trace); Specific Gravity,Urine 1.023 (1.010-1.025); Urobilinogen,Urine Normal (Normal)
[2018-12-08 20:17] LABS: Bacteria,Urine None Seen per hpf (None-Few); Hyaline Casts,Urine None Seen per lpf (None-Few); Squamous Epithelial Cell,Urine Many per lpf (None-Few)
[2018-12-08 20:34] LABS: RBC,Urine 0-3 per hpf (0-3)
[2018-12-08 21:50] LABS: Troponin I < 0.03 ng/mL (< 0.04)
[2018-12-08] MEDS ORDERED: 0.9 % Sodium Chloride 1,000 ML ONE (22:01)
[2018-12-08] MEDS ORDERED: *HR* Metoprolol 5 MG/5 ML VIAL IVP ONE ×3 (23:08→23:15)
[2018-12-08] MEDS: *HR* Metoprolol 5 MG/5 ML VIAL IVP ONE (23:11)
[2018-12-08] MEDS ORDERED: 0.9 % Sodium Chloride 250 ML ONE (23:20)
[2018-12-08] MEDS ORDERED: *HR* Adenosine 6 MG/2 ML VIAL IVP ONE ×2 (23:24→23:25)
[2018-12-08] MEDS ORDERED: *HR* Adenosine 6 MG/2 ML SYRINGE IVP ONE (23:28)
[2018-12-09] MEDS ORDERED: Naloxone 0.4 MG/ML INJ IVP PRN (02:38)
[2018-12-09] MEDS ORDERED: Amiodarone Premix 150 MG/100 ML BAG IVPB ONE (02:45)
[2018-12-09] MEDS ORDERED: Amiodarone Premix 360 MG/200 ML BAG IVC ONE (03:00)
[2018-12-09 03:12] LABS: Troponin I < 0.03 ng/mL (< 0.04)
[2018-12-09 03:25] LABS: Thyroid Stimulating Hormone 1.675 mcIU/mL (0.340-5.600)
[2018-12-09 05:06] LABS: Hematocrit 45.4 % (35.3-44.9); Hemoglobin 14.3 g/dL (11.5-15.4); Mean Corpuscular HGB Conc 31.5 g/dL (31.6-35.5); Mean Corpuscular Hemoglobin 29.4 pg (28.0-33.3); Mean Corpuscular Volume 93.2 fL (83.0-100.0); Mean Platelet Volume 10.6 fL (9.4-12.4); Platelet Count 140 K/mcL (140-400); Red Blood Count 4.87 M/mcL (3.82-4.97); Red Cell Distribution Width 13.8 % (11.5-14.5); White Blood Count 19.6 K/mcL (4.3-11.1)
[2018-12-09 05:37] LABS: BUN/Creatinine Ratio 17 (6-26); Blood Urea Nitrogen 21 mg/dL (8-23); Calcium 8.4 mg/dL (8.6-10.3); Carbon Dioxide 20 mEq/L (23-29); Chloride 111 mEq/L (98-107); Glucose 122 mg/dL (70-105); Osmolality,Calculated 294 (280-300); Potassium 4.5 mEq/L (3.5-5.1); Sodium 140 mEq/L (136-145); Troponin I < 0.03 ng/mL (< 0.04); eGFR For African Americans 51 (> 60); eGFR For Non-African Americans 42 (> 60)
[2018-12-09] MEDS ORDERED: Amiodarone Premix 360 MG/200 ML BAG IVC SCH (09:00)
[2018-12-09] MEDS ORDERED: Metoprolol XL (24 HR) Succ 25 MG TAB.ER.24H PO SCH ×2 (09:00→16:15)
[2018-12-09] MEDS ORDERED: *HR* Metoprolol 5 MG/5 ML VIAL IVP ONE ×2 (10:13→18:42)
[2018-12-09] MEDS: Aspirin 81 MG TAB.CHEW PO SCH ×2 (10:14→16:16)
[2018-12-09] MEDS ORDERED: Isovue-370 500 ML BOTTLE IVP ONE (11:16)
[2018-12-09 12:17] LABS: Magnesium 2.1 mg/dL (1.6-2.6)
[2018-12-09] MEDS ORDERED: Perflutren Lipid Microsphere 1.3 ML in 0.9 % Sodium Chloride 8.7 ML IVP ONE (12:53)
[2018-12-09] MEDS ORDERED: *HR* Metoprolol 5 MG/5 ML VIAL IVP PRN (14:22)
[2018-12-09] MEDS: cefTRIAXone 1,000 MG in Water for inj. (sterile) 10 ML IVP SCH (15:27)
[2018-12-09] MEDS: Azithromycin 500 MG in 0.9 % Sodium Chloride 250 ML IVPB SCH (15:29)
[2018-12-09] MEDS: Mirtazapine 15 MG TABLET PO SCH (19:38)
[2018-12-10] MEDS ORDERED: 0.9 % Sodium Chloride 1,000 ML ONE (01:13)
[2018-12-10] MEDS ORDERED: 0.9 % Sodium Chloride 1,000 ML IVC SCH (01:15)
[2018-12-10] MEDS: *HR* Metoprolol 5 MG/5 ML VIAL IVP PRN ×2 (03:34→22:14)
[2018-12-10] MEDS: cefTRIAXone 1,000 MG in Water for inj. (sterile) 10 ML IVP SCH (08:03)
[2018-12-10] MEDS: Aspirin 81 MG TAB.CHEW PO SCH (08:03)
[2018-12-10] MEDS ORDERED: Metoprolol XL (24 HR) Succ 25 MG TAB.ER.24H PO SCH (09:00)
[2018-12-10 09:17] LABS: Basophils % 0.3 %; Eosinophils # 0.2 K/mcL (0.0-0.6); Eosinophils % 1.5 %; Hematocrit 41.1 % (35.3-44.9); Hemoglobin 13.3 g/dL (11.5-15.4); Immature Granulocytes % 0.4 % (0-4); Lymphocytes # 1.6 K/mcL (0.6-4.6); Lymphocytes % 14.7 %; Mean Corpuscular HGB Conc 32.4 g/dL (31.6-35.5); Mean Corpuscular Hemoglobin 30.7 pg (28.0-33.3); Mean Corpuscular Volume 94.9 fL (83.0-100.0); Mean Platelet Volume 10.3 fL (9.4-12.4); Monocytes # 0.5 K/mcL (0.0-1.3); Monocytes % 4.9 %; Neutrophils # 8.7 K/mcL (1.6-8.9); Platelet Count 122 K/mcL (140-400); Red Blood Count 4.33 M/mcL (3.82-4.97); Segmented Neutrophils % 78.2 %; White Blood Count 11.1 K/mcL (4.3-11.1)
[2018-12-10 09:36] LABS: BUN/Creatinine Ratio 22 (6-26); Blood Urea Nitrogen 23 mg/dL (8-23); Calcium 8.8 mg/dL (8.6-10.3); Carbon Dioxide 19 mEq/L (23-29); Chloride 116 mEq/L (98-107); Glucose 83 mg/dL (70-105); Osmolality,Calculated 295 (280-300); Potassium 4.2 mEq/L (3.5-5.1); Sodium 141 mEq/L (136-145); eGFR For African Americans > 60 (> 60); eGFR For Non-African Americans 52 (> 60)
[2018-12-10] MEDS: Azithromycin 500 MG in 0.9 % Sodium Chloride 250 ML IVPB SCH (14:36)
[2018-12-10] MEDS: Furosemide 40 MG/4 ML VIAL IVP SCH (14:36)
[2018-12-10] MEDS: Levalbuterol Neb 0.63 MG/3 ML IH SCH ×2 (16:09→22:22)
[2018-12-10] MEDS: Mirtazapine 15 MG TABLET PO SCH (20:09)
[2018-12-11 01:32] LABS: Basophils % 0.3 %; Eosinophils % 1.6 %; Hematocrit 39.9 % (35.3-44.9); Immature Granulocytes % 0.5 % (0-4); Lymphocytes % 13.1 %; Mean Corpuscular HGB Conc 32.6 g/dL (31.6-35.5); Mean Corpuscular Volume 92.1 fL (83.0-100.0); Mean Platelet Volume 10.3 fL (9.4-12.4); Monocytes % 5.5 %; Platelet Count 143 K/mcL (140-400); Red Blood Count 4.33 M/mcL (3.82-4.97); Red Cell Distribution Width 13.8 % (11.5-14.5); White Blood Count 10.2 K/mcL (4.3-11.1)
[2018-12-11 01:33] LABS: Eosinophils # 0.2 K/mcL (0.0-0.6); Lymphocytes # 1.3 K/mcL (0.6-4.6); Monocytes # 0.6 K/mcL (0.0-1.3); Neutrophils # 8.1 K/mcL (1.6-8.9)
[2018-12-11 01:48] LABS: BUN/Creatinine Ratio 23 (6-26); Blood Urea Nitrogen 23 mg/dL (8-23); Carbon Dioxide 21 mEq/L (23-29); Chloride 110 mEq/L (98-107); Glucose 113 mg/dL (70-105); Osmolality,Calculated 298 (280-300); Potassium 3.9 mEq/L (3.5-5.1); Sodium 142 mEq/L (136-145); eGFR For African Americans > 60 (> 60); eGFR For Non-African Americans 53 (> 60)
[2018-12-11] MEDS: Levalbuterol Neb 0.63 MG/3 ML IH SCH ×4 (03:59→21:53)
[2018-12-11] MEDS: Aspirin 81 MG TAB.CHEW PO SCH (07:52)
[2018-12-11] MEDS: Furosemide 40 MG/4 ML VIAL IVP SCH (07:52)
[2018-12-11] MEDS: cefTRIAXone 1,000 MG in Water for inj. (sterile) 10 ML IVP SCH (07:53)
[2018-12-11] MEDS: Metoprolol XL (24 HR) Succ 25 MG TAB.ER.24H PO SCH (07:53)
[2018-12-11] MEDS: Azithromycin 500 MG in 0.9 % Sodium Chloride 250 ML IVPB SCH (14:19)
[2018-12-11] MEDS: Mirtazapine 15 MG TABLET PO SCH (20:23)
[2018-12-12 01:13] LABS: Basophils % 0.4 %; Eosinophils # 0.3 K/mcL (0.0-0.6); Hematocrit 39.3 % (35.3-44.9); Hemoglobin 12.8 g/dL (11.5-15.4); Immature Granulocytes % 0.3 % (0-4); Lymphocytes # 1.7 K/mcL (0.6-4.6); Lymphocytes % 23.7 %; Mean Corpuscular HGB Conc 32.6 g/dL (31.6-35.5); Mean Corpuscular Hemoglobin 30.3 pg (28.0-33.3); Mean Corpuscular Volume 93.1 fL (83.0-100.0); Mean Platelet Volume 9.9 fL (9.4-12.4); Monocytes # 0.6 K/mcL (0.0-1.3); Monocytes % 7.8 %; Neutrophils # 4.6 K/mcL (1.6-8.9); Platelet Count 137 K/mcL (140-400); Red Blood Count 4.22 M/mcL (3.82-4.97); Red Cell Distribution Width 13.9 % (11.5-14.5); Segmented Neutrophils % 63.8 %; White Blood Count 7.3 K/mcL (4.3-11.1)
[2018-12-12 01:35] LABS: BUN/Creatinine Ratio 26 (6-26); Blood Urea Nitrogen 24 mg/dL (8-23); Carbon Dioxide 24 mEq/L (23-29); Chloride 106 mEq/L (98-107); Glucose 104 mg/dL (70-105); Magnesium 1.9 mg/dL (1.6-2.6); Osmolality,Calculated 300 (280-300); Potassium 3.4 mEq/L (3.5-5.1); Sodium 143 mEq/L (136-145); eGFR For African Americans > 60 (> 60); eGFR For Non-African Americans 59 (> 60)
[2018-12-12] MEDS: Levalbuterol Neb 0.63 MG/3 ML IH SCH ×4 (03:31→22:03)
[2018-12-12] MEDS: Aspirin 81 MG TAB.CHEW PO SCH (07:58)
[2018-12-12] MEDS: cefTRIAXone 1,000 MG in Water for inj. (sterile) 10 ML IVP SCH (07:58)
[2018-12-12] MEDS: Furosemide 40 MG/4 ML VIAL IVP SCH (07:58)
[2018-12-12] MEDS: Metoprolol XL (24 HR) Succ 25 MG TAB.ER.24H PO SCH (07:58)
[2018-12-12] MEDS ORDERED: Potassium Chloride Elixir 20 MEQ/15 ML UDC PO ONE (13:33)
[2018-12-12] MEDS: Azithromycin 500 MG in 0.9 % Sodium Chloride 250 ML IVPB SCH (15:18)
[2018-12-12] MEDS: Mirtazapine 15 MG TABLET PO SCH (20:13)
[2018-12-13] MEDS: Levalbuterol Neb 0.63 MG/3 ML IH SCH ×2 (03:50→10:49)
[2018-12-13 06:19] LABS: Basophils % 0.4 %; Eosinophils # 0.2 K/mcL (0.0-0.6); Eosinophils % 4.8 %; Hematocrit 34.5 % (35.3-44.9); Hemoglobin 11.4 g/dL (11.5-15.4); Immature Granulocytes % 0.6 % (0-4); Lymphocytes # 1.4 K/mcL (0.6-4.6); Lymphocytes % 27.6 %; Mean Corpuscular Hemoglobin 30.2 pg (28.0-33.3); Mean Corpuscular Volume 91.3 fL (83.0-100.0); Monocytes # 0.4 K/mcL (0.0-1.3); Neutrophils # 2.9 K/mcL (1.6-8.9); Platelet Count 132 K/mcL (140-400); Red Blood Count 3.78 M/mcL (3.82-4.97); Red Cell Distribution Width 13.8 % (11.5-14.5); Segmented Neutrophils % 58.6 %
[2018-12-13 06:39] LABS: BUN/Creatinine Ratio 32 (6-26); Blood Urea Nitrogen 28 mg/dL (8-23); Calcium 8.9 mg/dL (8.6-10.3); Carbon Dioxide 26 mEq/L (23-29); Chloride 105 mEq/L (98-107); Glucose 91 mg/dL (70-105); Osmolality,Calculated 305 (280-300); Potassium 3.2 mEq/L (3.5-5.1); Sodium 145 mEq/L (136-145); eGFR For African Americans > 60 (> 60); eGFR For Non-African Americans > 60 (> 60)
[2018-12-13] MEDS ORDERED: Potassium Chloride Elixir 20 MEQ/15 ML UDC PO ONE (08:05)
[2018-12-13 08:22] LABS: Magnesium 1.8 mg/dL (1.6-2.6)
[2018-12-13] MEDS: Metoprolol XL (24 HR) Succ 25 MG TAB.ER.24H PO SCH (09:01)
[2018-12-13] MEDS: cefTRIAXone 1,000 MG in Water for inj. (sterile) 10 ML IVP SCH (09:01)
[2018-12-13] MEDS: Aspirin 81 MG TAB.CHEW PO SCH (09:01)
[2018-12-13] MEDS: Furosemide 40 MG/4 ML VIAL IVP SCH (09:02)
[2018-12-13] MEDS ORDERED: Levalbuterol Neb 0.63 MG/3 ML IH PRN (12:47)
[2018-12-13] MEDS: Azithromycin 500 MG in 0.9 % Sodium Chloride 250 ML IVPB SCH (13:13)
[2018-12-13] MEDS: Mirtazapine 15 MG TABLET PO SCH (21:20)
[2018-12-13] MEDS ORDERED: Ondansetron 4 MG/2 ML VIAL IVP ONE (21:35)
[2018-12-14] MEDS ORDERED: Ketorolac 15 MG/ML VIAL IVP ONE (02:02)
[2018-12-14 03:08] LABS: Basophils % 0.3 %; Eosinophils # 0.3 K/mcL (0.0-0.6); Eosinophils % 4.7 %; Hemoglobin 12.7 g/dL (11.5-15.4); Immature Granulocytes % 0.7 % (0-4); Lymphocytes # 1.1 K/mcL (0.6-4.6); Lymphocytes % 19.7 %; Mean Corpuscular HGB Conc 32.6 g/dL (31.6-35.5); Mean Corpuscular Hemoglobin 30.1 pg (28.0-33.3); Mean Corpuscular Volume 92.4 fL (83.0-100.0); Mean Platelet Volume 10.1 fL (9.4-12.4); Monocytes # 0.4 K/mcL (0.0-1.3); Monocytes % 7.5 %; Neutrophils # 3.8 K/mcL (1.6-8.9); Platelet Count 155 K/mcL (140-400); Red Blood Count 4.22 M/mcL (3.82-4.97); Red Cell Distribution Width 13.9 % (11.5-14.5); Segmented Neutrophils % 67.1 %; White Blood Count 5.7 K/mcL (4.3-11.1)
[2018-12-14 06:58] VITALS: BP 141/72
[2018-12-14 06:58] LABS: BUN/Creatinine Ratio 29 (6-26); Blood Urea Nitrogen 29 mg/dL (8-23); Calcium 9.2 mg/dL (8.6-10.3); Carbon Dioxide 32 mEq/L (23-29); Chloride 104 mEq/L (98-107); Glucose 93 mg/dL (70-105); Osmolality,Calculated 306 (280-300); Sodium 145 mEq/L (136-145); eGFR For African Americans > 60 (> 60); eGFR For Non-African Americans 53 (> 60)
[2018-12-14] MEDS: Furosemide 40 MG/4 ML VIAL IVP SCH (08:29)
[2018-12-14] MEDS: Aspirin 81 MG TAB.CHEW PO SCH (08:29)
[2018-12-14] MEDS: cefTRIAXone 1,000 MG in Water for inj. (sterile) 10 ML IVP SCH (08:29)
[2018-12-14] MEDS: Metoprolol XL (24 HR) Succ 25 MG TAB.ER.24H PO SCH (08:29)
[2018-12-14] MEDS: Azithromycin 500 MG in 0.9 % Sodium Chloride 250 ML IVPB SCH (16:07)
== END 2018-12-14 16:10 | DRG 193 ==
LOC: EMEROOARM 17:25 → 2NENU 17:25 → SUATTDRO 22:08 → 2NNU 23:23 → SUATTDRO 12-11 14:31
PROVIDERS: ADMIT Internal Medicine; ATTEND Student in an Organized Health Care Education/Training Program

== ENCOUNTER 2019-02-06 10:28 | Observation (INO) ==
[2019-02-06 12:22] LABS: Basophils % 0.4 %; Eosinophils # 0.1 K/mcL (0.0-0.6); Eosinophils % 1.2 %; Hematocrit 33.1 % (35.3-44.9); Hemoglobin 11.2 g/dL (11.5-15.4); Immature Granulocytes % 0.5 % (0-4); Lymphocytes # 1.3 K/mcL (0.6-4.6); Lymphocytes % 22.3 %; Mean Corpuscular HGB Conc 33.8 g/dL (31.6-35.5); Mean Corpuscular Hemoglobin 31.6 pg (28.0-33.3); Mean Corpuscular Volume 93.5 fL (83.0-100.0); Mean Platelet Volume 9.9 fL (9.4-12.4); Monocytes # 0.5 K/mcL (0.0-1.3); Monocytes % 8.2 %; Neutrophils # 3.8 K/mcL (1.6-8.9); Platelet Count 161 K/mcL (140-400); Red Blood Count 3.54 M/mcL (3.82-4.97); Red Cell Distribution Width 14.8 % (11.5-14.5); Segmented Neutrophils % 67.4 %; White Blood Count 5.6 K/mcL (4.3-11.1)
[2019-02-06 12:35] LABS: Calcium 9.6 mg/dL (8.6-10.3); Potassium 4.5 mEq/L (3.5-5.1)
[2019-02-06] MEDS ORDERED: Naloxone 0.4 MG/ML INJ IVP PRN (16:13)
[2019-02-06] MEDS: 0.9 % Sodium Chloride 1,000 ML IVC SCH (18:23)
[2019-02-06] MEDS: Mirtazapine 15 MG TABLET PO SCH (22:02)
[2019-02-06] MEDS: traZODone 50 MG TABLET PO SCH (22:02)
[2019-02-07] MEDS: Melatonin 3 MG TABLET PO SCH ×2 (05:06→20:50)
[2019-02-07 07:49] LABS: Basophils % 0.2 %; Eosinophils # 0.1 K/mcL (0.0-0.6); Eosinophils % 2.6 %; Hematocrit 35.7 % (35.3-44.9); Hemoglobin 11.2 g/dL (11.5-15.4); Immature Granulocytes % 0.2 % (0-4); Lymphocytes # 1.5 K/mcL (0.6-4.6); Lymphocytes % 33.1 %; Mean Corpuscular HGB Conc 31.4 g/dL (31.6-35.5); Mean Corpuscular Hemoglobin 30.8 pg (28.0-33.3); Mean Corpuscular Volume 98.1 fL (83.0-100.0); Mean Platelet Volume 10.3 fL (9.4-12.4); Monocytes # 0.3 K/mcL (0.0-1.3); Neutrophils # 2.6 K/mcL (1.6-8.9); Platelet Count 151 K/mcL (140-400); Red Blood Count 3.64 M/mcL (3.82-4.97); Red Cell Distribution Width 14.7 % (11.5-14.5); Segmented Neutrophils % 56.9 %; White Blood Count 4.6 K/mcL (4.3-11.1)
[2019-02-07 08:11] LABS: Calcium 9.5 mg/dL (8.6-10.3)
[2019-02-07] MEDS: 0.9 % Sodium Chloride 1,000 ML IVC SCH ×2 (09:00→20:51)
[2019-02-07] MEDS: traZODone 50 MG TABLET PO SCH (20:50)
[2019-02-07] MEDS: Mirtazapine 15 MG TABLET PO SCH (20:51)
[2019-02-07] MEDS ORDERED: NON-FORMULARY MEDICATION 1 EACH EACH (Melatonin 5 MG) PO SCH (21:00)
[2019-02-07] MEDS ORDERED: NON-FORMULARY MEDICATION 1 EACH EACH (Trazodone Hcl 100 MG) PO SCH (21:00)
[2019-02-08] MEDS ORDERED: *HR* Enoxaparin 40 MG/0.4 ML SYRINGE SQ SCH (06:00)
[2019-02-08] MEDS ORDERED: MIRTAZAPINE 7.5 MG PO SCH (09:00)
[2019-02-08] MEDS: Metoprolol XL (24 HR) Succ 50 MG TAB.ER.24H PO SCH (11:44)
[2019-02-08] MEDS: Aspirin Enteric Coated 81 MG Tablet PO SCH (11:44)
[2019-02-08 16:20] LABS: BUN/Creatinine Ratio 16 (6-26); Blood Urea Nitrogen 14 mg/dL (8-23); Calcium 9.4 mg/dL (8.6-10.3); Carbon Dioxide 19 mEq/L (23-29); Chloride 114 mEq/L (98-107); Glucose 93 mg/dL (70-105); Magnesium 1.8 mg/dL (1.6-2.6); Osmolality,Calculated 298 (280-300); Potassium 4.3 mEq/L (3.5-5.1); Sodium 144 mEq/L (136-145); eGFR For African Americans > 60 (> 60); eGFR For Non-African Americans > 60 (> 60)
[2019-02-08] MEDS: Melatonin 3 MG TABLET PO SCH (20:19)
[2019-02-08] MEDS: Mirtazapine 15 MG TABLET PO SCH (20:19)
[2019-02-08] MEDS: traZODone 50 MG TABLET PO SCH (20:19)
[2019-02-09] MEDS: *HR* Enoxaparin 30 MG/0.3 ML SYRINGE SQ SCH (05:32)
[2019-02-09] MEDS: Aspirin Enteric Coated 81 MG Tablet PO SCH (10:17)
[2019-02-09] MEDS: Metoprolol XL (24 HR) Succ 50 MG TAB.ER.24H PO SCH (10:18)
[2019-02-09] MEDS: Melatonin 3 MG TABLET PO SCH (20:10)
[2019-02-09] MEDS: Mirtazapine 15 MG TABLET PO SCH (20:10)
[2019-02-09] MEDS: traZODone 50 MG TABLET PO SCH (20:10)
[2019-02-10] MEDS: *HR* Enoxaparin 30 MG/0.3 ML SYRINGE SQ SCH (05:40)
[2019-02-10] MEDS: Metoprolol XL (24 HR) Succ 50 MG TAB.ER.24H PO SCH (08:10)
[2019-02-10] MEDS: Aspirin Enteric Coated 81 MG Tablet PO SCH (08:13)
[2019-02-10] MEDS: Mirtazapine 15 MG TABLET PO SCH (20:33)
[2019-02-10] MEDS: Melatonin 3 MG TABLET PO SCH (20:33)
[2019-02-10] MEDS: traZODone 50 MG TABLET PO SCH (20:33)
[2019-02-11] MEDS: 0.9 % Sodium Chloride 1,000 ML IVC SCH (00:40)
[2019-02-11] MEDS: *HR* Enoxaparin 30 MG/0.3 ML SYRINGE SQ SCH (05:18)
[2019-02-11] MEDS: Aspirin Enteric Coated 81 MG Tablet PO SCH (09:08)
[2019-02-11] MEDS: Metoprolol XL (24 HR) Succ 50 MG TAB.ER.24H PO SCH (09:08)
[2019-02-11] MEDS ORDERED: Acetaminophen 325 MG TABLET PO PRN (09:24)
[2019-02-11 15:23] LABS: Hematocrit 31.1 % (35.3-44.9); Hemoglobin 10.4 g/dL (11.5-15.4); Mean Corpuscular HGB Conc 33.4 g/dL (31.6-35.5); Mean Corpuscular Hemoglobin 31.1 pg (28.0-33.3); Mean Corpuscular Volume 93.1 fL (83.0-100.0); Mean Platelet Volume 9.8 fL (9.4-12.4); Platelet Count 150 K/mcL (140-400); Red Blood Count 3.34 M/mcL (3.82-4.97); Red Cell Distribution Width 14.5 % (11.5-14.5); White Blood Count 3.4 K/mcL (4.3-11.1)
[2019-02-11 15:46] LABS: BUN/Creatinine Ratio 15 (6-26); Blood Urea Nitrogen 16 mg/dL (8-23); Calcium 9.3 mg/dL (8.6-10.3); Carbon Dioxide 30 mEq/L (23-29); Chloride 109 mEq/L (98-107); Glucose 116 mg/dL (70-105); Osmolality,Calculated 298 (280-300); Potassium 4.5 mEq/L (3.5-5.1); Sodium 143 mEq/L (136-145); eGFR For African Americans > 60 (> 60); eGFR For Non-African Americans 50 (> 60)
[2019-02-11] MEDS: traZODone 50 MG TABLET PO SCH (20:35)
[2019-02-11] MEDS: Mirtazapine 15 MG TABLET PO SCH (20:35)
[2019-02-11] MEDS: Melatonin 3 MG TABLET PO SCH (20:35)
[2019-02-12] MEDS: *HR* Enoxaparin 30 MG/0.3 ML SYRINGE SQ SCH (05:59)
[2019-02-12] MEDS: Metoprolol XL (24 HR) Succ 50 MG TAB.ER.24H PO SCH (08:42)
[2019-02-12] MEDS: Aspirin Enteric Coated 81 MG Tablet PO SCH (08:42)
[2019-02-12] MEDS ORDERED: Mag Hydrox/Al Hydrox/Simeth 30 ML UDC PO PRN (09:45)
[2019-02-12] MEDS ORDERED: MOM Conc 10 ML UD.LIQ PO PRN (09:45)
[2019-02-12] MEDS: Furosemide 20 MG TABLET PO SCH (12:30)
[2019-02-12] MEDS: Mirtazapine 15 MG TABLET PO SCH (20:42)
[2019-02-12] MEDS: Melatonin 3 MG TABLET PO SCH (20:44)
[2019-02-12] MEDS: traZODone 50 MG TABLET PO SCH (20:44)
[2019-02-13] MEDS: *HR* Enoxaparin 30 MG/0.3 ML SYRINGE SQ SCH (06:14)
[2019-02-13] MEDS: Vitamin B Complex/Vit C/Vit E 1 EACH TABLET PO SCH (09:00)
[2019-02-13] MEDS: Cholecalciferol (D-3) 1,000 UNIT (25MCG) TABLET PO SCH (09:00)
[2019-02-13] MEDS: Furosemide 20 MG TABLET PO SCH (09:00)
[2019-02-13] MEDS: Aspirin Enteric Coated 81 MG Tablet PO SCH (09:00)
[2019-02-13] MEDS: Metoprolol XL (24 HR) Succ 50 MG TAB.ER.24H PO SCH (09:00)
[2019-02-13] MEDS: traZODone 50 MG TABLET PO SCH (21:06)
[2019-02-13] MEDS: Mirtazapine 15 MG TABLET PO SCH (21:06)
[2019-02-13] MEDS: Melatonin 3 MG TABLET PO SCH (21:06)
[2019-02-14] MEDS: *HR* Enoxaparin 30 MG/0.3 ML SYRINGE SQ SCH (06:11)
[2019-02-14] MEDS: Aspirin Enteric Coated 81 MG Tablet PO SCH (10:34)
[2019-02-14] MEDS: Vitamin B Complex/Vit C/Vit E 1 EACH TABLET PO SCH (10:34)
[2019-02-14] MEDS: Metoprolol XL (24 HR) Succ 50 MG TAB.ER.24H PO SCH (10:34)
[2019-02-14] MEDS: Cholecalciferol (D-3) 1,000 UNIT (25MCG) TABLET PO SCH (10:35)
[2019-02-14] MEDS: Furosemide 20 MG TABLET PO SCH (10:35)
[2019-02-14] MEDS: traZODone 50 MG TABLET PO SCH (21:19)
[2019-02-14] MEDS: Mirtazapine 15 MG TABLET PO SCH (21:20)
[2019-02-14] MEDS: Melatonin 3 MG TABLET PO SCH (21:20)
[2019-02-15] MEDS: *HR* Enoxaparin 30 MG/0.3 ML SYRINGE SQ SCH (06:45)
[2019-02-15] MEDS: Vitamin B Complex/Vit C/Vit E 1 EACH TABLET PO SCH (08:19)
[2019-02-15] MEDS: Aspirin Enteric Coated 81 MG Tablet PO SCH (08:19)
[2019-02-15] MEDS: Furosemide 20 MG TABLET PO SCH (08:19)
[2019-02-15] MEDS: Metoprolol XL (24 HR) Succ 50 MG TAB.ER.24H PO SCH (08:19)
[2019-02-15] MEDS: Cholecalciferol (D-3) 1,000 UNIT (25MCG) TABLET PO SCH (08:19)
[2019-02-15] MEDS ORDERED: 0.9 % Sodium Chloride 500 ML IVC ONE (17:01)
[2019-02-15 17:10] VITALS: BP 102/64
== END 2019-02-15 17:10 ==
LOC: 3ANU 10:28 → EMEROOARM 10:28 → SUATTDRO 15:00 → 3ANU 16:42 → SUATTDRO 02-08 13:03
PROVIDERS: ADMIT Internal Medicine; ATTEND Internal Medicine